=== PATIENT | female | born 1935 | race Caucasian/White ===

== ENCOUNTER 2017-05-16 14:49 | Inpatient (IN) | payer MEDICARE ==
[2017-05-16] MEDS ORDERED: IPRATROPIUM-ALBUTEROL 3 ML NEB INHALATION STA (15:17)
--- NOTE | 2017-05-16 15:22 | ED ---
SOB HPI - General Chief Complaint: Shortness of Breath Stated Complaint: Diff breathing Time Seen by Provider: 05/16/17 15:00 Source: patient, family, RN notes reviewed Mode of arrival: wheelchair Limitations: no limitations - History of Present Illness Initial Comments: This is a 80-year-old female with a history of Sjogren's syndrome urinary tract infection and COPD who presents with complaints of shortness of breath for the past 4 days with a cough exertional dyspnea some sweats. She states also that about 2 weeks ago she got up and was bouncing off the gracia and also 2 days ago she had an episode where her right hand and fingers went numb for a period time which is since resolved. Her cough is nonproductive she denies any dysuria though she states she does not have sensation to indicate urinary tract infection. She denies any dizziness at this time any lightheadedness. MD Complaint: shortness of breath - Related Data Home Medications Medication Instructions Recorded Confirmed ALPRAZolam [Xanax] 0.25 mg PO HS 04/30/14 05/16/17 Aspirin EC [Ecotrin] 81 mg PO HS 04/30/14 05/16/17 Biotin 5 mg PO DAILY 04/30/14 05/16/17 Cyclobenzaprine [Flexeril] 10 mg PO BID PRN 04/30/14 05/16/17 Furosemide [Lasix] 40 mg PO DAILY PRN 04/30/14 05/16/17 Loratadine [Claritin] 10 mg PO BID 04/30/14 05/16/17 Pravastatin Sodium [Pravachol] 20 mg PO HS 04/30/14 05/16/17 cycloSPORINE 0.05% OPHTH SOLN 1 drop BOTH EYES BID 04/30/14 05/16/17 [Restasis 0.05% Ophth Soln] Mag Carb/Aluminum Hydrox/Algin 30 ml PO QID PRN 05/21/14 05/16/17 [Gaviscon Liquid] Melatonin 10 mg PO HS PRN 08/26/15 05/16/17 Acetaminophen [Tylenol Arthritis 1,300 mg PO BID 01/23/16 05/16/17 8-hr] Albuterol Sulfate [Proair Hfa] 2 puff INHALATION RT-QID PRN 01/23/16 05/16/17 Potassium 550 mg PO BID 01/23/16 05/16/17 Sennosides-Docusate Sodium 2 tab PO QAM 01/23/16 05/16/17 [Senokot-S] Carvedilol [Coreg] 1.563 mg PO Q48H 05/16/17 05/16/17 Carvedilol [Coreg] 3.125 mg PO Q48H 05/16/17 05/16/17 Carvedilol [Coreg] 3.125 mg PO QAM 05/16/17 05/16/17 Cephalexin [Keflex] 500 mg PO Q8HR 05/16/17 05/16/17 Ciprofloxacin HCl [Cipro] 125 mg PO BID PRN 05/16/17 05/16/17 Cranberry Fruit Extract [Theracran] 650 mg PO BID 05/16/17 05/16/17 DULoxetine HCL [Cymbalta] 60 mg PO W/SUPPER 05/16/17 05/16/17 Dexamethasone [Decadron Intensol 0.5 mg MUCOUS MEM TID PRN 05/16/17 05/16/17 Oral Solution] Fluticasone Nasal Seiling [Flonase 2 spr EA NOSTRIL DAILY 05/16/17 05/16/17 Nasal Seiling] L.acidoph,Paracasei, B.lactis 1 cap PO QAM 05/16/17 05/16/17 [Probiotic] Lidocaine-Prilocaine Cream [Emla 1 applic TOPICAL DAILY PRN 05/16/17 05/16/17 Cream 2.5%/2.5%] Losartan Potassium 50 mg PO DAILY 05/16/17 05/16/17 Lysine [l-Lysine] 1,000 mg PO QAM 05/16/17 05/16/17 Lysine [l-Lysine] 500 mg PO HS 05/16/17 05/16/17 Magnesium Oxide [Mag-Ox] 250 mg PO BID 05/16/17 05/16/17 Meclizine [Antivert] 12.5 mg PO TID PRN 05/16/17 05/16/17 Multivitamins, Thera [Multivitamin 1 tab PO DAILY 05/16/17 05/16/17 (formulary)] Maple-3 Fatty Acids/Fish Oil [Fish 1 cap PO QAM 05/16/17 05/16/17 Oil 1,000 mg Softgel] Pantoprazole Sodium [Protonix] 40 mg PO BID PRN 05/16/17 05/16/17 fentaNYL 50MCG/HR PATCH [Duragesic 50 mcg TRANSDERM Q48H 05/16/17 05/16/17 50MCG/HR] Allergies Allergy/AdvReac Type Severity Reaction Status Date / Time morphine Allergy Itching Verified 05/16/17 14:56 nickel Allergy REDNESS OF Verified 05/16/17 14:56 SKIN AND BLISTERING oxycodone HCl [From Percodan] Allergy Itching Verified 05/16/17 14:56 oxycodone terephthalate Allergy Itching Verified 05/16/17 14:56 [From Percodan] amoxicillin [Amoxicillin] AdvReac Diarrhea Verified 05/16/17 14:56 calcium carbonate AdvReac Rapid Verified 05/16/17 15:29 [From Salagen] Heart Rate cephalexin monohydrate AdvReac Unknown Verified 05/16/17 14:56 [From Keflex] codeine AdvReac Nausea & Verified 05/16/17 14:56 Vomiting magnesium [From Salagen] AdvReac Rapid Verified 05/16/17 15:29 Heart Rate methotrexate AdvReac NERVE Verified 05/16/17 14:56 DAMAGE TO HANDS AND FEET pilocarpine HCl AdvReac Rapid Verified 05/16/17 15:29 [From Salagen] Heart Rate pseudoephedrine HCl AdvReac Nausea Verified 05/16/17 14:56 [From Sudafed] Sulfa (Sulfonamide AdvReac Nausea & Verified 05/16/17 14:56 Antibiotics) Vomiting valacyclovir HCl AdvReac Unknown Verified 05/16/17 14:56 [From Valtrex] Review of Systems ROS Statement: Those systems with pertinent positive or pertinent negative responses have been documented in the HPI. ROS Other: All systems not noted in ROS Statement are negative. Past Medical History Past Medical History: Deep Vein Thrombosis (DVT), Fibromyalgia, Hypertension, Myocardial Infarction ([place]), Osteoarthritis (OA), Pneumonia, Pulmonary Embolus ( PE), Rheumatoid Arthritis (RA), Skin Disorder Additional Past Medical History / Comment(s): Hx of frequent bladder infections , sjogren's syndrome, bursitis, vasculitis, R leg calf wound, allergies Last Myocardial Infarction Date:: 2002 History of Any Multi-Drug Resistant Organisms: None Reported Past Surgical History: Appendectomy, Back Surgery, Bladder Surgery, Cholecystectomy, Heart Catheterization With Stent Additional Past Surgical History / Comment(s): PMH: RHEUMATOID ARTHRITIS Past Anesthesia/Blood Transfusion Reactions: No Reported Reaction Date of Last Stent Placement:: 2008 Past Psychological History: No Psychological Hx Reported Smoking Status: Former smoker Past Alcohol Use History: Occasional Past Drug Use History: None Reported - Past Family History Father Family Medical History: Cancer Mother Family Medical History: Cancer General Exam - General Exam Comments Initial Comments: This is a well-developed well-nourished awake alert oriented 3 female Limitations: no limitations General appearance: alert, anxious Head exam: Present: atraumatic, normocephalic, normal inspection Eye exam: Present: normal appearance, PERRL, EOMI. Absent: scleral icterus, conjunctival injection, periorbital swelling ENT exam: Present: mucous membranes dry Neck exam: Present: normal inspection. Absent: tenderness, meningismus, lymphadenopathy Respiratory exam: Present: normal lung sounds bilaterally. Absent: respiratory distress, wheezes, rales, rhonchi, stridor Cardiovascular Exam: Present: tachycardia, irregular rhythm. Absent: systolic murmur, diastolic murmur, rubs, gallop, clicks GI/Abdominal exam: Present: soft, normal bowel sounds. Absent: distended, tenderness, guarding, rebound, rigid Extremities exam: Present: normal inspection, full ROM, normal capillary refill , pedal edema (Trace edema with a healing wound on the right lower extremity). Absent: tenderness, joint swelling, calf tenderness Back exam: Present: normal inspection Neurological exam: Present: alert, oriented X3, CN II-XII intact Psychiatric exam: Present: normal affect, normal mood Skin exam: Present: warm, intact, normal color, diaphoretic. Absent: rash Course Vital Signs 05/16/17 05/16/17 05/16/17 14:50 15:32 15:33 Temperature 99.0 F 97.4 F L Pulse Rate 129 H 133 H Pulse Rate [ 133 H Tower Erector ] Respiratory 20 18 Rate Blood Pressure 140/84 151/84 O2 Sat by Pulse 97 98 Oximetry 05/16/17 05/16/17 05/16/17 15:42 15:52 16:35 Temperature Pulse Rate 133 H 129 H 130 H Pulse Rate [ Tower Erector ] Respiratory 18 Rate Blood Pressure 147/90 O2 Sat by Pulse 99 Oximetry Medical Decision Making - Medical Decision Making I did reevaluate patient several occasions and did have several discussions with family member as well as the patient. Patient will be admitted with new onset atrial fibrillation with rapid ventricular response. - Lab Data Result diagrams: 05/16/17 15:25 05/16/17 15:25 Lab Results 05/16/17 05/16/17 05/16/17 Range/Units 15:25 15:25 15:25 WBC 9.0 (3.8-10.6) k/uL RBC 4.18 (3.80-5.40) m/uL Hgb 12.1 (11.4-16.0) gm/dL Hct 39.4 (34.0-46.0) % MCV 94.2 (80.0-100.0) fL MCH 28.9 (25.0-35.0) pg MCHC 30.7 L (31.0-37.0) g/dL RDW 14.3 (11.5-15.5) % Plt Count 355 (150-450) k/uL Neutrophils % 73 % Lymphocytes % 14 % Monocytes % 6 % Eosinophils % 3 % Basophils % 1 % Neutrophils # 6.6 (1.3-7.7) k/uL Lymphocytes # 1.3 (1.0-4.8) k/uL Monocytes # 0.5 (0-1.0) k/uL Eosinophils # 0.3 (0-0.7) k/uL Basophils # 0.1 (0-0.2) k/uL Hypochromasia Moderate PT (9.0-12.0) sec INR (<1.2) APTT (22.0-30.0) sec D-Dimer (<0.60) mg/L FEU Sodium 141 (137-145) mmol/L Potassium 4.8 (3.5-5.1) mmol/L Chloride 110 H (98-107) mmol/L Carbon Dioxide 24 (22-30) mmol/L Anion Gap 7 mmol/L BUN 12 (7-17) mg/dL Creatinine 0.64 (0.52-1.04) mg/dL Est GFR (MDRD) Af Amer >60 (>60 ml/min/1.73 sqM) Est GFR (MDRD) Non-Af >60 (>60 ml/min/1.73 sqM) Glucose 119 H (74-99) mg/dL Calcium 9.2 (8.4-10.2) mg/dL Magnesium 1.7 (1.6-2.3) mg/dL Total Bilirubin 0.4 (0.2-1.3) mg/dL AST 19 (14-36) U/L ALT 25 (9-52) U/L Alkaline Phosphatase 59 (38-126) U/L Total Creatine Kinase 25 L (30-135) U/L CK-MB (CK-2) 1.0 (0.0-2.4) ng/mL CK-MB (CK-2) Rel Index 4.0 Troponin I 0.019 (0.000-0.034) ng/mL NT-Pro-B Natriuret Pep pg/mL Total Protein 6.0 L (6.3-8.2) g/dL Albumin 3.3 L (3.5-5.0) g/dL 05/16/17 05/16/17 Range/Units 15:25 15:25 WBC (3.8-10.6) k/uL RBC (3.80-5.40) m/uL Hgb (11.4-16.0) gm/dL Hct (34.0-46.0) % MCV (80.0-100.0) fL MCH (25.0-35.0) pg MCHC (31.0-37.0) g/dL RDW (11.5-15.5) % Plt Count (150-450) k/uL Neutrophils % % Lymphocytes % % Monocytes % % Eosinophils % % Basophils % % Neutrophils # (1.3-7.7) k/uL Lymphocytes # (1.0-4.8) k/uL Monocytes # (0-1.0) k/uL Eosinophils # (0-0.7) k/uL Basophils # (0-0.2) k/uL Hypochromasia PT 11.2 (9.0-12.0) sec INR 1.1 (<1.2) APTT 24.8 (22.0-30.0) sec D-Dimer 2.31 H (<0.60) mg/L FEU Sodium (137-145) mmol/L Potassium (3.5-5.1) mmol/L Chloride (98-107) mmol/L Carbon Dioxide (22-30) mmol/L Anion Gap mmol/L BUN (7-17) mg/dL Creatinine (0.52-1.04) mg/dL Est GFR (MDRD) Af Amer (>60 ml/min/1.73 sqM) Est GFR (MDRD) Non-Af (>60 ml/min/1.73 sqM) Glucose (74-99) mg/dL Calcium (8.4-10.2) mg/dL Magnesium (1.6-2.3) mg/dL Total Bilirubin (0.2-1.3) mg/dL AST (14-36) U/L ALT (9-52) U/L Alkaline Phosphatase (38-126) U/L Total Creatine Kinase (30-135) U/L CK-MB (CK-2) (0.0-2.4) ng/mL CK-MB (CK-2) Rel Index Troponin I (0.000-0.034) ng/mL NT-Pro-B Natriuret Pep 6870 pg/mL Total Protein (6.3-8.2) g/dL Albumin (3.5-5.0) g/dL - EKG Data -: EKG Interpreted by Me (Atrial fibrillation rate of 140 QRS 90 QT since QTC of 300/458 that exodevi) - Radiology Data Radiology results: report reviewed (I did review the imaging and reports are is no evidence of PE.), image reviewed Critical Care Time Critical Care Time: Yes Critical Care Time: 37 minutes of critical care time which includes initial presentation with history physical labs x-rays reevaluation the patient multiple occasions discussion with family members. Discussion with the admitting physician. Admission orders and documentation of the above. Disposition Clinical Impression: Rapid atrial fibrillation Disposition: ADMITTED IP TO THIS [facility] Condition: Stable Referrals: Cirilo Brown DO [Primary Care Provider] - 1-2 days
[2017-05-16 15:40] LABS: Basophils # (A) 0.1 k/uL (0-0.2); Basophils % (A) 1 %; CH 28.7; CHCM 30.7; Eosinophils # (A) 0.3 k/uL (0-0.7); Eosinophils % (A) 3 %; HCT 39.4 % (34.0-46.0); HDW 2.91; HGB 12.1 gm/dL (11.4-16.0); Hypochromasia Moderate; Luc # (Auto) 0.27; Luc % (Auto) 3; Lymphocytes # (A) 1.3 k/uL (1.0-4.8); Lymphocytes % (A) 14 %; MCH 28.9 pg (25.0-35.0); MCHC 30.7 g/dL (31.0-37.0); MCV 94.2 fL (80.0-100.0); Mean Platelet Volume 8.2; Monocytes # (A) 0.5 k/uL (0-1.0); Monocytes % (A) 6 %; Neutrophils # (A) 6.6 k/uL (1.3-7.7); Neutrophils % (A) 73 %; RBC 4.18 m/uL (3.80-5.40); RDW 14.3 % (11.5-15.5); WBC (Perox) 9.61
[2017-05-16] MEDS ORDERED: DILTIAZEM 125 MG in SODIUM CHLORIDE 0.9% 100 ML IV ONE (15:41)
[2017-05-16] MEDS ORDERED: DILTIAZEM 5 MG/ML 25 ML VIAL IV STA ×2 (15:41→16:35)
[2017-05-16 15:50] LABS: ALT 25 U/L (9-52); AST 19 U/L (14-36); Alkaline Phosphatase 59 U/L (38-126); Anion Gap 7 mmol/L; Blood Urea Nitrogen 12 mg/dL (7-17); Calcium 9.2 mg/dL (8.4-10.2); Carbon Dioxide 24 mmol/L (22-30); Chloride 110 mmol/L (98-107); Glucose 119 mg/dL (74-99); Magnesium 1.7 mg/dL (1.6-2.3); Non-African American GFR(MDRD) >60 (>60 ml/min/1.73 sqM); Potassium 4.8 mmol/L (3.5-5.1); Sodium 141 mmol/L (137-145); Total Bilirubin 0.4 mg/dL (0.2-1.3)
[2017-05-16 15:53] LABS: INR 1.1 (<1.2); Partial Thromboplastin Time 24.8 sec (22.0-30.0); Prothrombin Time 11.2 sec (9.0-12.0)
[2017-05-16] MEDS ORDERED: RX INFO: IV CONTRAST WAS GIVEN 1 EACH MISC MISCELLANE PRN (16:16)
--- NOTE | 2017-05-16 16:30 | XR ---
EXAMINATION TYPE: XR chest 2V DATE OF EXAM: 05/16/2017 COMPARISON: 04/11/2016 HISTORY: Shortness of breath TECHNIQUE: Frontal and lateral views of the chest are obtained. FINDINGS: Scattered senescent parenchymal changes noted. Hyperinflation compatible with COPD. No evidence for infiltrate. No evidence for atelectasis. Heart size is stable. Mediastinal structures are stable and grossly unremarkable. No evidence for hilar prominence. Degenerative changes dorsal spine. IMPRESSION: 1. No evidence for acute pulmonary disease.
[2017-05-16] MEDS ORDERED: DILTIAZEM 5 MG/ML 5 ML VIAL IVP STA (16:38)
[2017-05-16] MEDS ORDERED: DILTIAZEM 5 MG/ML 5 ML VIAL IV STA (16:41)
--- NOTE | 2017-05-16 16:41 | CT ---
EXAMINATION TYPE: CT brain wo con DATE OF EXAM: 05/16/2017 COMPARISON: NONE HISTORY: Pain CT DLP: 992.[address] of the brain was performed. The ventricles, basal cisterns and sulci overlying the cerebral convexities demonstrate mild enlargem ent. There is no evidence for intracranial hemorrhage or sulcal effacement. There is decreased attenuation about the periventricular white matter and deep white matter of both c erebral hemispheres, compatible with chronic small vessel ischemia. Differential diagnosis does inclu de demyelination. No mass effects are seen.No midline shift. Osseous calvarium is intact. If symptoms persist consider MRI. IMPRESSION: 1. Age related atrophic and chronic small vessel ischemic change without acute intracranial process s een at this time.
--- NOTE | 2017-05-16 16:43 | CT ---
EXAMINATION TYPE: CT angio chest DATE OF EXAM: 05/16/2017 COMPARISON: NONE HISTORY: Difficulty breathing CT DLP: 147.6 mGycm CONTRAST: CT chest with contrast and 3D reconstruction with MIP imaging is performed with IV Contrast, patient injected with 100 mL of Omnipaque 350. Contrast-enhanced CT of the chest was performed through the course of the pulmonary arteries with greg g and mediastinal window settings submitted. 3D reconstruction with MIP imaging was also performed. PULMONARY ARTERIES: The pulmonary arteries and their major tributaries are patent. I do not see alexsander dence for sizable filling defect to suggest pulmonary embolic process. LUNGS: The lungs are clear and free of infiltrate. No evidence for atelectasis. No pulmonary nodule or mass is detected. Scattered areas of pleural thickening. Mild bronchiectasis. MEDIASTINUM: Thoracic aorta is of normal caliber . The heart is not enlarged. No evidence for media stinal mass. No mediastinal lymph nodes greater than 1cm. HILAR STRUCTURES: No evidence for mass. No hilar lymph nodes greater than 1 cm. UPPER ABDOMEN: No significant abnormality is seen. IMPRESSION: 1. No evidence for Pulmonary embolism at this time.
[2017-05-16 16:45] LABS: Troponin I 0.019 ng/mL (0.000-0.034)
[2017-05-16] MEDS ORDERED: NALOXONE 0.4 MG/ML 1 ML VIAL IV PRN (16:52)
[2017-05-16] MEDS ORDERED: HEPARIN SODIUM,PORCINE 5,000 UNIT/ML 1 ML VIAL IV ONE (16:58)
[2017-05-16] MEDS ORDERED: CYCLOBENZAPRINE 10 MG TAB PO PRN (16:59)
[2017-05-16] MEDS ORDERED: LIDOCAINE-PRILOCAINE 2.5-2.5% CREAM 5 GM TUBE TOPICAL PRN (16:59)
[2017-05-16] MEDS ORDERED: MECLIZINE 12.5 MG TAB PO PRN (16:59)
[2017-05-16] MEDS ORDERED: PANTOPRAZOLE 40 MG TABLET PO PRN (16:59)
[2017-05-16] MEDS: HEPARIN SODIUM,PORCINE/D5W PMX 25,000 UNIT in DEXTROSE/WATER 1 500ML.BAG IV SCH (17:37)
[2017-05-16] MEDS: SODIUM CHLORIDE 0.9% 1,000 ML IV SCH (17:39)
[2017-05-16] MEDS: CARVEDILOL 3.125 MG TAB PO SCH (18:29)
[2017-05-16] MEDS: DULoxetine HCL 60 MG CAPSULE.DR PO SCH (18:29)
[2017-05-16] MEDS: NITROGLYCERIN OINT 1 INCH/GM PACKET TOPICAL SCH ×2 (18:50→23:14)
[2017-05-16 18:55] LABS: Appearance,Urine Clear (Clear); Bacteria,Urine Occasional /hpf; Bilirubin,Urine Negative (Negative); Glucose,Urine (UA) Negative (Negative); Ketones,Urine Negative (Negative); Leukocyte Esterase,Urine Small (Negative); Mucus,Urine Rare /hpf; Nitrite,Urine Negative (Negative); PH, Urine 5.5 (5.0-8.0); Particle Count 1665; Protein,Urine Trace (Negative); RBC,Urine 5 /hpf (0-5); Squamous Epithelial Cell,Urine 2 /hpf (0-4); UA Billing (MACRO vs. MICRO) MICRO; Urobilinogen,Urine <2.0 mg/dL (<2.0); WBC,Urine 4 /hpf (0-5)
[2017-05-16 19:01] LABS: Specific Gravity,Urine >1.050 (1.001-1.035)
[2017-05-16] MEDS: ASPIRIN 81 MG CHEW PO SCH (20:40)
[2017-05-16] MEDS: FUROSEMIDE 10 MG/ML 4 ML VIAL IV SCH (20:41)
[2017-05-16] MEDS: cycloSPORINE 0.05% OPHTH 0.4 ML DROPERETTE BOTH EYES SCH (20:41)
[2017-05-16] MEDS: MAGNESIUM OXIDE 400 MG TAB PO SCH (20:41)
[2017-05-16] MEDS: PRAVASTATIN SODIUM 20 MG TAB PO SCH (20:41)
[2017-05-16] MEDS: ALPRAZolam 0.25 MG TAB PO SCH (23:41)
[2017-05-17] MEDS: HEPARIN SODIUM,PORCINE 5,000 UNIT/ML 1 ML VIAL IV PRN (01:21)
[2017-05-17] MEDS: NITROGLYCERIN OINT 1 INCH/GM PACKET TOPICAL SCH ×3 (06:05→16:05)
[2017-05-17] MEDS: CARVEDILOL 3.125 MG TAB PO SCH ×2 (08:43→16:05)
[2017-05-17] MEDS: FLUTICASONE 50MCG/SPRAY NASAL 16GM EA NOSTRIL SCH (08:44)
[2017-05-17] MEDS: LOSARTAN 50 MG TAB PO SCH (08:44)
[2017-05-17] MEDS: cycloSPORINE 0.05% OPHTH 0.4 ML DROPERETTE BOTH EYES SCH ×2 (08:44→22:01)
[2017-05-17] MEDS: FUROSEMIDE 10 MG/ML 4 ML VIAL IV SCH ×2 (08:44→22:00)
[2017-05-17] MEDS: MAGNESIUM OXIDE 400 MG TAB PO SCH ×2 (08:45→22:01)
--- NOTE | 2017-05-17 09:46 | P.CRDCN ---
History of Present Illness Consult date: 05/17/17 Requesting physician: Cirilo Brown Consult reason: atrial fibrillation Chief complaint: Fatigue and mild shortness of breath History of present illness: This is a 81-year-old female who follows with Dr. Ross in the office. She has history of hypertension, prior DVT and PE, rheumatoid arthritis , Sjogren's syndrome, frequent bladder infections, she presents to the hospital with symptoms of progressive fatigue with associated shortness of breath. Patient states that she had recently been treated for a urinary tract infection which she gets frequently. She's felt extremely tired, she did check her blood pressure and heart rate at home, she noted her heart rate to be in the upper 120s and for this reason came to the emergency room for further evaluation. She does state that she noted her heart racing fast. Patient denies any history of atrial fibrillation in the past. EKG on arrival here showed atrial fibrillation with a rapid ventricular response. Chest x-ray did not reveal any evidence for acute pulmonary disease. CAT scan of the brain revealed age- related atrophic and chronic small vessel ischemic change. CTA negative for PE. Blood pressure 140/80 on admission, 97% on room air, heart rate in the 130s to 140s, temperature 99.0. Blood pressure this morning 114/60, heart rate in the 120s, on Cardizem drip at 5 mg per hour. White blood cell count 9.0, hemoglobin 12.1, d-dimer 2.3, potassium 4.8, BUN 12, creatinine 0.6. BNP 6870, troponin 0.019. Past Medical History Past Medical History: Fibromyalgia, Hypertension, Myocardial Infarction (SC), Osteoarthritis (OA), Pneumonia, Pulmonary Embolus (PE), Rheumatoid Arthritis (RA ), Skin Disorder Additional Past Medical History / Comment(s): Hx of frequent bladder infections , sjogren's syndrome, bursitis, vasculitis, R leg calf wound, allergies, silent mi."superficial blood clot rt leg". Last Myocardial Infarction Date:: 2002? History of Any Multi-Drug Resistant Organisms: None Reported Past Surgical History: Adenoidectomy, Appendectomy, Back Surgery, Bladder Surgery, Cholecystectomy, Heart Catheterization With Stent, Tonsillectomy Additional Past Surgical History / Comment(s): eligio hand sx trigger finger sx Past Anesthesia/Blood Transfusion Reactions: No Reported Reaction Additional Past Anesthesia/Blood Transfusion Reaction / Comment(s): clausterphobia Date of Last Stent Placement:: 2008 Past Psychological History: No Psychological Hx Reported Additional Psychological History / Comment(s): pt lives with daughter satinder in a single story home that has 2 porch steps.1 pet cat. 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 Smoking Status: Former smoker Past Alcohol Use History: Occasional Past Drug Use History: None Reported - Past Family History Father Family Medical History: Cancer Mother Family Medical History: Cancer Medications and Allergies Home Medications Medication Instructions Recorded Confirmed Type ALPRAZolam [Xanax] 0.25 mg PO HS 04/30/14 05/16/17 History Aspirin EC [Ecotrin] 81 mg PO HS 04/30/14 05/16/17 History Biotin 5 mg PO DAILY 04/30/14 05/16/17 History Cyclobenzaprine [Flexeril] 10 mg PO BID PRN 04/30/14 05/16/17 History Furosemide [Lasix] 40 mg PO DAILY PRN 04/30/14 05/16/17 History Loratadine [Claritin] 10 mg PO BID 04/30/14 05/16/17 History Pravastatin Sodium [Pravachol] 20 mg PO HS 04/30/14 05/16/17 History cycloSPORINE 0.05% OPHTH SOLN 1 drop BOTH EYES BID 04/30/14 05/16/17 History [Restasis 0.05% Ophth Soln] Mag Carb/Aluminum Hydrox/Algin 30 ml PO QID PRN 05/21/14 05/16/17 History [Gaviscon Liquid] Melatonin 10 mg PO HS PRN 08/26/15 05/16/17 History Acetaminophen [Tylenol Arthritis 1,300 mg PO BID 01/23/16 05/16/17 History 8-hr] Albuterol Sulfate [Proair Hfa] 2 puff INHALATION RT-QID PRN 01/23/16 05/16/17 History Potassium 550 mg PO BID 01/23/16 05/16/17 History Sennosides-Docusate Sodium 3 tab PO QAM 01/23/16 05/16/17 History [Senokot-S] Carvedilol [Coreg] 1.563 mg PO Q48H 05/16/17 05/16/17 History Carvedilol [Coreg] 3.125 mg PO HS 05/16/17 05/16/17 History Carvedilol [Coreg] 3.125 mg PO Q48H 05/16/17 05/16/17 History Cephalexin [Keflex] 500 mg PO Q8HR 05/16/17 05/16/17 History Ciprofloxacin HCl [Cipro] 125 mg PO BID PRN 05/16/17 05/16/17 History Cranberry Fruit Extract [Theracran] 650 mg PO BID 05/16/17 05/16/17 History DULoxetine HCL [Cymbalta] 60 mg PO W/SUPPER 05/16/17 05/16/17 History Dexamethasone [Decadron Intensol 0.5 mg MUCOUS MEM TID PRN 05/16/17 05/16/17 History Oral Solution] Fluticasone Nasal [place] [Flonase 2 spr EA NOSTRIL DAILY 05/16/17 05/16/17 History Nasal [place]] L.acidoph,Paracasei, B.lactis 1 cap PO QAM 05/16/17 05/16/17 History [Probiotic] Lidocaine-Prilocaine Cream [Emla 1 applic TOPICAL DAILY PRN 05/16/17 05/16/17 History Cream 2.5%/2.5%] Losartan Potassium 50 mg PO DAILY 05/16/17 05/16/17 History Lysine [l-Lysine] 1,000 mg PO QAM 05/16/17 05/16/17 History Lysine [l-Lysine] 500 mg PO HS 05/16/17 05/16/17 History Magnesium Oxide [Mag-Ox] 250 mg PO BID 05/16/17 05/16/17 History Meclizine [Antivert] 12.5 mg PO TID PRN 05/16/17 05/16/17 History Multivitamins, Thera [Multivitamin 1 tab PO DAILY 05/16/17 05/16/17 History (formulary)] [place]-3 Fatty Acids/Fish Oil [Fish 1 cap PO QAM 05/16/17 05/16/17 History Oil 1,000 mg Softgel] Pantoprazole Sodium [Protonix] 40 mg PO BID PRN 05/16/17 05/16/17 History fentaNYL 50MCG/HR PATCH [Duragesic 50 mcg TRANSDERM Q48H 05/16/17 05/16/17 History 50MCG/HR] Allergies Allergy/AdvReac Type Severity Reaction Status Date / Time morphine Allergy Itching Verified 05/16/17 14:56 nickel Allergy REDNESS OF Verified 05/16/17 14:56 SKIN AND BLISTERING oxycodone HCl [From Percodan] Allergy Itching Verified 05/16/17 14:56 oxycodone terephthalate Allergy Itching Verified 05/16/17 14:56 [From Percodan] amoxicillin [Amoxicillin] AdvReac Diarrhea Verified 05/16/17 14:56 calcium carbonate AdvReac Rapid Verified 05/16/17 15:29 [From [place]] Heart Rate cephalexin monohydrate AdvReac Unknown Verified 05/16/17 14:56 [From Keflex] codeine AdvReac Nausea & Verified 05/16/17 14:56 Vomiting magnesium [From [place]] AdvReac Rapid Verified 05/16/17 15:29 Heart Rate methotrexate AdvReac NERVE Verified 05/16/17 14:56 DAMAGE TO HANDS AND FEET pilocarpine HCl AdvReac Rapid Verified 05/16/17 15:29 [From [place]] Heart Rate pseudoephedrine HCl AdvReac Nausea Verified 05/16/17 14:56 [From Sudafed] Sulfa (Sulfonamide AdvReac Nausea & Verified 05/16/17 14:56 Antibiotics) Vomiting valacyclovir HCl AdvReac Unknown Verified 05/16/17 14:56 [From Valtrex] Physical Exam Vitals: Vital Signs Temp Pulse Pulse Resp BP BP Pulse Ox 05/17/17 08:30 96.9 F L 128 H 16 113/59 95 05/17/17 04:00 97.5 F L 120 H 18 134/80 93 L 05/17/17 00:00 98.2 F 129 H 18 139/80 97 05/16/17 20:00 98.0 F 108 H 18 119/83 94 L 05/16/17 18:00 97.5 F L 118 H 18 138/84 91 L 05/16/17 17:39 98.4 F 117 H 18 157/70 96 05/16/17 16:48 137 H 18 133/90 98 05/16/17 16:35 130 H 18 147/90 99 05/16/17 15:52 129 H 05/16/17 15:42 133 H 05/16/17 15:33 97.4 F L 133 H 18 151/84 98 05/16/17 15:32 133 H 05/16/17 14:50 99.0 F 129 H 20 140/84 97 Intake and Output 05/16/17 05/17/17 05/17/17 22:59 06:59 14:59 Intake Total 357 115.824 360 Output Total 600 1000 Balance -243 -884.176 360 Intake: IV 60 Diltiazem 125 mg In 15 Sodium Chloride 0.9% 100 ml @ 5 MG/HR 5 mls/hr IV .Q24H [facility] Rx#:[id number] Heparin Sodium,Porcine/ 45 D5w Pmx 25,000 unit In Dextrose/Water 1 500ml. bag @ 12 UNITS/KG/HR 15. 24 mls/hr IV .Q24H [facility] Rx #:[id number] Intake, IV Titration 60 115.824 Amount Heparin Sodium,Porcine/ 115.824 D5w Pmx 25,000 unit In Dextrose/Water 1 500ml. bag @ 12 UNITS/KG/HR 15. 24 mls/hr IV .Q24H [facility] Rx #:[id number] Sodium Chloride 0.9% 1, 60 000 ml @ 20 mls/hr IV . Q24H [facility] Rx#:[id number] Oral 237 360 Output: Urine 600 1000 Other: Voiding Method Bedside Commode Bedside Commode Bedside Commode Weight 62.9 kg PHYSICAL EXAMINATION: HEENT: Head is atraumatic, normocephalic. Pupils equal, round. Neck is supple. There is no elevated jugular venous pressure. HEART EXAMINATION: Heart S1 and S2 irregularly irregular a systolic murmur is heard CHEST EXAMINATION: Lungs are clear to auscultation and precussion. No chest wall tenderness is noted on palpation or with deep breathing. ABDOMEN: Soft, nontender. Bowel sounds are heard. No organomegaly noted. EXTREMITIES: 2+ peripheral pulses with no evidence of peripheral edema and no calf tenderness noted. Igor wrap in place to right lower extremity NEUROLOGIC patient is awake, alert and oriented -3. . Results 05/16/17 15:25 05/16/17 15:25 Cardiac Enzymes 05/16/17 05/16/17 Range/Units 15:25 15:25 AST 19 (14-36) U/L CK-MB (CK-2) 1.0 (0.0-2.4) ng/mL Troponin I 0.019 (0.000-0.034) ng/mL Coagulation 05/16/17 05/16/17 05/17/17 Range/Units 15:25 23:20 06:22 PT 11.2 (9.0-12.0) sec APTT 24.8 38.6 H 65.8 H (22.0-30.0) sec CBC 05/16/17 Range/Units 15:25 WBC 9.0 (3.8-10.6) k/uL RBC 4.18 (3.80-5.40) m/uL Hgb 12.1 (11.4-16.0) gm/dL Hct 39.4 (34.0-46.0) % Plt Count 355 (150-450) k/uL Comprehensive Metabolic Panel 05/16/17 Range/Units 15:25 Sodium 141 (137-145) mmol/L Potassium 4.8 (3.5-5.1) mmol/L Chloride 110 H (98-107) mmol/L Carbon Dioxide 24 (22-30) mmol/L BUN 12 (7-17) mg/dL Creatinine 0.64 (0.52-1.04) mg/dL Glucose 119 H (74-99) mg/dL Calcium 9.2 (8.4-10.2) mg/dL AST 19 (14-36) U/L ALT 25 (9-52) U/L Alkaline Phosphatase 59 (38-126) U/L Total Protein 6.0 L (6.3-8.2) g/dL Albumin 3.3 L (3.5-5.0) g/dL Current Medications Generic Name Dose Route Start Last Admin Trade Name Freq PRN Reason Stop Dose Admin Alprazolam 0.25 mg 05/16/17 23:15 05/16/17 23:41 Xanax PO 0.25 mg HS [facility] Administration Aspirin 81 mg 05/16/17 21:00 05/16/17 20:40 Aspirin PO 81 mg HS [facility] Administration Carvedilol 3.125 mg 05/17/17 09:00 05/17/17 08:43 Coreg PO 3.125 mg Q48H [facility] Administration Carvedilol 3.125 mg 07/25/17 17:30 05/16/17 18:29 Coreg PO 3.125 mg W/SUPPER [facility] Administration Carvedilol 1.563 mg 05/18/17 09:00 Coreg PO Q48H [facility] Cyclobenzaprine HCl 10 mg 05/16/17 16:59 Flexeril PO BID PRN Spasms/Pain Cyclosporine 1 drops 05/16/17 21:00 05/17/17 08:44 Restasis 0.05% Ophth Soln BOTH EYES 1 drops BID [facility] Administration Duloxetine HCl 60 mg 05/16/17 17:30 05/16/17 18:29 Cymbalta PO 60 mg W/SUPPER [facility] Administration Fentanyl 1 patch 05/18/17 09:00 Duragesic 50mcg/Hr Patch TRANSDERM Q48H [facility] Fluticasone Propionate 2 spray 05/17/17 09:00 05/17/17 08:44 Flonase Nasal [place] EA NOSTRIL 2 spray DAILY [facility] Administration Furosemide 40 mg 05/16/17 21:00 05/17/17 08:44 Lasix IV 40 mg Q12HR [facility] Administration Heparin Sodium (Porcine) 0 unit 05/16/17 17:17 05/17/17 01:21 Heparin IV 4,000 unit PER PROTOCOL PRN Administration PER PROTOCOL Protocol Diltiazem HCl 125 mg/ Sodium 125 mls @ 5 mls/hr 05/16/17 15:41 05/16/17 16:32 Chloride IV 05/17/17 15:40 5 mg/hr .Q24H ONE 5 mls/hr 5 MG/HR Administration Heparin Sodium/Dextrose 25,000 500 mls @ 15.24 mls/hr 05/16/17 17:00 01:13 unit/ IV Solution IV 15 units/kg/hr .Q24H [facility] 19.05 mls/hr Protocol Titration 12 UNITS/KG/HR Sodium Chloride 1,000 mls @ 20 mls/hr 05/16/17 17:00 05/16/17 17:39 Saline 0.9% IV 20 mls/hr .Q24H [facility] Administration Lidocaine/Prilocaine 1 applic 05/16/17 16:59 Emla Cream 2.5%/2.5% TOPICAL DAILY PRN Feet Losartan Potassium 50 mg 05/17/17 09:00 05/17/17 08:44 Cozaar PO 50 mg DAILY [facility] Administration Magnesium Oxide 400 mg 05/16/17 21:00 05/17/17 08:45 Mag-Ox PO 400 mg BID [facility] Administration Meclizine HCl 12.5 mg 05/16/17 16:59 Antivert PO TID PRN Vertigo Miscellaneous Information 1 each 05/16/17 16:16 05/16/17 16:34 Rx Info: Iv Contrast Was Given MISCELLANE 05/18/17 16:16 1 each DAILY PRN Administration Per Protocol Naloxone HCl 0.2 mg 05/16/17 16:52 Narcan IV Q2M PRN Opioid Reversal Nitroglycerin 0.5 inch 05/16/17 18:00 05/17/17 06:05 Nitro-Bid Oint TOPICAL Not Given Q6HR [facility] Pantoprazole Sodium 40 mg 05/16/17 16:59 05/16/17 20:41 Protonix PO 40 mg AC-BID PRN Administration Indigestion/Heartburn Pravastatin Sodium 20 mg 05/16/17 21:00 05/16/17 20:41 Pravachol PO 20 mg HS [facility]NA Administration Intake and Output 05/16/17 05/17/17 05/17/17 22:59 06:59 14:59 Intake Total 357 115.824 360 Output Total 600 1000 Balance -243 -884.176 360 Intake: IV 60 Diltiazem 125 mg In 15 Sodium Chloride 0.9% 100 ml @ 5 MG/HR 5 mls/hr IV .Q24H [facility] Rx#:[id number] Heparin Sodium,Porcine/ 45 D5w Pmx 25,000 unit In Dextrose/Water 1 500ml. bag @ 12 UNITS/KG/HR 15. 24 mls/hr IV .Q24H [facility] Rx #:[id number] Intake, IV Titration 60 115.824 Amount Heparin Sodium,Porcine/ 115.824 D5w Pmx 25,000 unit In Dextrose/Water 1 500ml. bag @ 12 UNITS/KG/HR 15. 24 mls/hr IV .Q24H [facility] Rx #:[id number] Sodium Chloride 0.9% 1, 60 000 ml @ 20 mls/hr IV . Q24H [facility] Rx#:[id number] Oral 237 360 Output: Urine 600 1000 Other: Voiding Method Bedside Commode Bedside Commode Bedside Commode Weight 62.9 kg 05/16/17 15:25 05/16/17 15:25 EKG Interpretations (text) EKG shows atrial fibrillation with a rapid ventricular response Assessment and Plan Plan: Assessment and plan #1 symptoms of progressive fatigue with associated palpitations and shortness of breath. EKG on admission showed atrial fibrillation with rapid ventricular response, appears to be of new onset. #2 positive UTI with low-grade fever #3 hypertension #4 history of DVT and PE # 5 Sjogren's #6 rheumatoid arthritis #7 history of recurrent bladder infections #8 coronary artery disease with prior stent placement to the RCA #9 hyperlipidemia #10 elevated BNP level with no clear-cut evidence of congestive cardiac failure Plan We will obtain an echocardiogram with Doppler study. Check free T4 and TSH level. We'll initiate oral Cardizem. Discontinue Cardizem drip. We will also check to see on one of the newer anticoagulants. Further recommendations to follow. DNP note has been reviewed, I agree with a documented findings and plan of care. Patient was seen and examined.
[2017-05-17] MEDS: DILTIAZEM ORAL 30 MG TAB PO SCH ×3 (10:46→22:01)
--- NOTE | 2017-05-17 12:30 | ECHOF ---
Referral Reason:afib MEASUREMENTS -------- HEIGHT: 154.9 cm WEIGHT: 62.6 kg BP: 113/59 RVIDd: 2.8 cm (< 3.3) IVSd: 1.1 cm (0.6 - 1.1) LVIDd: 3.3 cm (3.9 - 5.3) LVPWd: 1.0 cm (0.6 - 1.1) IVSs: 1.5 cm LVIDs: 2.2 cm LVPWs: 1.8 cm LA Diam: 3.8 cm (2.7 - 3.8) LAESV Index (A-L): 30.51 ml/m Ao Diam: 3.1 cm (2.0 - 3.7) AV Cusp: 1.7 cm (1.5 - 2.6) MV EXCURSION: 14.881 mm (> 18.000) MV EF SLOPE: 191 mm/s (70 - 150) EPSS: 0.9 cm RAP: 5.00 mmHg RVSP: 40.70 mmHg FINDINGS -------- Atrial fibrillation. This was a technically good study. The left ventricular size is normal. Left ventricular wall thickness is normal. Overall left ventricular systolic function is moderately impaired with, an EF between 35 - 40 %. The right ventricle is normal in size. LA is midly dilated 29-33ml/m2. The right atrium is normal in size. Aortic valve is trileaflet and is mildly thickened. Mild mitral annular calcification present. Mvoo-[id number] mitral regurgitation is present. Mild tricuspid regurgitation present. There is mild pulmonary hypertension. The right ventricular systolic pressure, as measured by Doppler, is 40.70mmHg. There is no pulmonic regurgitation present. The aortic root size is normal. Normal inferior vena cava with normal inspiratory collapse consistent with estimated right atrial pressure of 5 mmHg. There is a small pericardial effusion located near the left ventricle. CONCLUSIONS -------- 1. Atrial fibrillation. 2. Mild mitral annular calcification present. 3. Eanz-[id number] mitral regurgitation is present. 4. Mild tricuspid regurgitation present. 5. There is mild pulmonary hypertension. 6. The right ventricular systolic pressure, as measured by Doppler, is 40.70mmHg. 7. There is no pulmonic regurgitation present. 8. The aortic root size is normal. 9. Normal inferior vena cava with normal inspiratory collapse consistent with estimated right atrial pressure of 5 mmHg. 10. There is a small pericardial effusion located near the left ventricle. 11. This was a technically good study. 12. The left ventricular size is normal. 13. Left ventricular wall thickness is normal. 14. Overall left ventricular systolic function is moderately impaired with, an EF between 35 - 40 %. 15. The right ventricle is normal in size. 16. LA is midly dilated 29-33ml/m2. 17. The right atrium is normal in size. 18. Aortic valve is trileaflet and is mildly thickened. [employer]: Nini Huizar RDCS
[2017-05-17] MEDS: ALPRAZolam 0.25 MG TAB PO PRN (16:04)
[2017-05-17] MEDS: OXYMETAZOLINE 0.05% NASL SPRAY 15 ML NASAL SCH (16:04)
[2017-05-17] MEDS: DULoxetine HCL 60 MG CAPSULE.DR PO SCH (16:05)
[2017-05-17] MEDS: SODIUM CHLORIDE 0.9% 1,000 ML IV SCH (16:06)
[2017-05-17] MEDS: HEPARIN SODIUM,PORCINE/D5W PMX 25,000 UNIT in DEXTROSE/WATER 1 500ML.BAG IV SCH (18:30)
[2017-05-17] MEDS: ALPRAZolam 0.25 MG TAB PO SCH (22:01)
[2017-05-17] MEDS: ASPIRIN 81 MG CHEW PO SCH (22:01)
[2017-05-17] MEDS: PRAVASTATIN SODIUM 20 MG TAB PO SCH (22:01)
[2017-05-18] MEDS: NITROGLYCERIN OINT 1 INCH/GM PACKET TOPICAL SCH ×5 (03:37→23:24)
[2017-05-18] MEDS: DILTIAZEM ORAL 30 MG TAB PO SCH ×3 (06:15→21:11)
[2017-05-18] MEDS: HEPARIN SODIUM,PORCINE 5,000 UNIT/ML 1 ML VIAL IV PRN (06:36)
[2017-05-18] MEDS: FLUTICASONE 50MCG/SPRAY NASAL 16GM EA NOSTRIL SCH (09:00)
[2017-05-18] MEDS ORDERED: CARVEDILOL 1.563 MG TAB PO SCH (09:00)
[2017-05-18] MEDS: cycloSPORINE 0.05% OPHTH 0.4 ML DROPERETTE BOTH EYES SCH ×2 (09:00→21:11)
[2017-05-18] MEDS: FUROSEMIDE 10 MG/ML 4 ML VIAL IV SCH ×2 (09:00→21:12)
[2017-05-18] MEDS: LOSARTAN 50 MG TAB PO SCH (09:01)
[2017-05-18] MEDS: MAGNESIUM OXIDE 400 MG TAB PO SCH ×2 (09:01→21:12)
[2017-05-18] MEDS: OXYMETAZOLINE 0.05% NASL SPRAY 15 ML NASAL SCH ×2 (10:10→21:12)
--- NOTE | 2017-05-18 15:02 | P.PN ---
Subjective PHYSICAL EXAMINATION: HEENT: Head is atraumatic, normocephalic. Pupils equal, round. Neck is supple. There is elevated jugular venous pressure. HEART EXAMINATION: Heart S1 S2 1 blowing systolic murmur at the apex conducted to the base and neck CHEST EXAMINATION: Lungs are clear to auscultation and precussion. No chest wall tenderness is noted on palpation or with deep breathing. ABDOMEN: Soft, nontender. Bowel sounds are heard. No organomegaly noted. EXTREMITIES: 2+ peripheral pulses with trace evidence of peripheral edema and no calf tenderness noted. NEUROLOGIC patient is awake, alert and oriented -3. Objective - Vital Signs Vital signs: Vital Signs Temp 97.8 F 05/18/17 08:25 Pulse 105 H 05/18/17 08:25 Resp 18 05/18/17 08:25 BP 118/63 05/18/17 08:25 Pulse Ox 97 05/18/17 08:25 Intake & Output 05/17/17 05/18/17 05/18/17 18:59 06:59 18:59 Intake Total 809.247 710.823 Output Total 400 900 900 Balance 409.247 -189.177 -900 Intake: Intake, IV Titration 329.247 230.823 Amount Heparin Sodium,Porcine/ 329.247 230.823 D5w Pmx 25,000 unit In Dextrose/Water 1 500ml. bag @ 12 UNITS/KG/HR 15. 24 mls/hr IV .Q24H [facility] Rx #:[id number] Oral 480 480 Output: Urine 400 900 900 Other: Voiding Method Bedside Commode Bedside Commode Bedside Commode # Voids 1 0 # Bowel Movements 0 0 - Exam PHYSICAL EXAMINATION: HEENT: Head is atraumatic, normocephalic. Pupils equal, round. Neck is supple. There is no elevated jugular venous pressure. HEART EXAMINATION: Heart S1 and S2 irregularly irregular a systolic murmur is heard CHEST EXAMINATION: Lungs are clear to auscultation and precussion. No chest wall tenderness is noted on palpation or with deep breathing. ABDOMEN: Soft, nontender. Bowel sounds are heard. No organomegaly noted. EXTREMITIES: 2+ peripheral pulses with no evidence of peripheral edema and no calf tenderness noted. Igor wrap in place to right lower extremity NEUROLOGIC patient is awake, alert and oriented -3. . - Labs CBC & Chem 7: 05/16/17 15:25 05/16/17 15:25 Labs: Abnormal Lab Results - Last 24 Hours (Table) 05/18/17 05/18/17 Range/Units 06:00 12:03 APTT 44.6 H 55.7 H (22.0-30.0) sec Microbiology - Last 24 Hours (Table) 05/18/17 05:00 Urine Culture - Preliminary Urine,Voided 05/16/17 15:25 Blood Culture Gram Stain - Preliminary Blood Blood Culture - Preliminary Coagulase Negative Staph 05/16/17 15:25 Blood Culture - Final Blood Assessment and Plan Plan: Assessment and plan #1 symptoms of progressive fatigue with associated palpitations and shortness of breath. EKG on admission showed atrial fibrillation with rapid ventricular response, appears to be of new onset. #2 positive UTI with low-grade fever #3 hypertension #4 history of DVT and PE # 5 Sjogren's #6 rheumatoid arthritis #7 history of recurrent bladder infections #8 coronary artery disease with prior stent placement to the RCA #9 hyperlipidemia #10 elevated BNP level with no clear-cut evidence of congestive cardiac failure Plan Echocardiogram with Doppler study was performed which revealed an ejection fraction of 35-40%. The patient's rate does at times appeared to still be in the 120 range, we will add Lanoxin to her medication regime. Continue current dose of IV Lasix. DNP note has been reviewed, I agree with a documented findings and plan of care. Patient was seen and examined.
[2017-05-18] MEDS: SODIUM CHLORIDE 0.9% 1,000 ML IV SCH (18:32)
[2017-05-18] MEDS: CARVEDILOL 3.125 MG TAB PO SCH (18:33)
[2017-05-18] MEDS: DULoxetine HCL 60 MG CAPSULE.DR PO SCH (18:33)
[2017-05-18] MEDS: HEPARIN SODIUM,PORCINE/D5W PMX 25,000 UNIT in DEXTROSE/WATER 1 500ML.BAG IV SCH (18:56)
[2017-05-18] MEDS: DIGOXIN 250 MCG/ML 2 ML AMP IVP SCH (18:57)
[2017-05-18] MEDS: ASPIRIN 81 MG CHEW PO SCH (21:11)
[2017-05-18] MEDS: ALPRAZolam 0.25 MG TAB PO SCH (21:11)
[2017-05-18] MEDS: PRAVASTATIN SODIUM 20 MG TAB PO SCH (21:11)
[2017-05-19] MEDS: DIGOXIN 250 MCG/ML 2 ML AMP IVP SCH (00:49)
[2017-05-19] MEDS: NITROGLYCERIN OINT 1 INCH/GM PACKET TOPICAL SCH ×2 (05:48→11:07)
[2017-05-19] MEDS: CARVEDILOL 3.125 MG TAB PO SCH (08:18)
[2017-05-19] MEDS: cycloSPORINE 0.05% OPHTH 0.4 ML DROPERETTE BOTH EYES SCH ×2 (08:18→22:11)
[2017-05-19] MEDS: MAGNESIUM OXIDE 400 MG TAB PO SCH ×2 (08:19→22:11)
[2017-05-19] MEDS: DILTIAZEM ORAL 30 MG TAB PO SCH (08:19)
[2017-05-19] MEDS: FUROSEMIDE 10 MG/ML 4 ML VIAL IV SCH (08:19)
[2017-05-19] MEDS: FLUTICASONE 50MCG/SPRAY NASAL 16GM EA NOSTRIL SCH (08:19)
[2017-05-19] MEDS: DIGOXIN 250 MCG TAB PO SCH (08:19)
[2017-05-19] MEDS: OXYMETAZOLINE 0.05% NASL SPRAY 15 ML NASAL SCH ×2 (08:19→22:12)
[2017-05-19] MEDS: LOSARTAN 50 MG TAB PO SCH (08:20)
[2017-05-19 08:39] LABS: CH 28.8; CHCM 31.6; HCT 39.6 % (34.0-46.0); HDW 2.73; HGB 12.5 gm/dL (11.4-16.0); Hypochromasia Slight; MCHC 31.6 g/dL (31.0-37.0); MCV 91.9 fL (80.0-100.0); Mean Platelet Volume 8.5; RBC 4.31 m/uL (3.80-5.40); RDW 14.4 % (11.5-15.5); WBC 10.2 k/uL (3.8-10.6)
[2017-05-19 08:47] LABS: Anion Gap 11 mmol/L; Blood Urea Nitrogen 16 mg/dL (7-17); Calcium 9.1 mg/dL (8.4-10.2); Carbon Dioxide 28 mmol/L (22-30); Chloride 101 mmol/L (98-107); Glucose 95 mg/dL (74-99); Non-African American GFR(MDRD) >60 (>60 ml/min/1.73 sqM); Potassium 3.9 mmol/L (3.5-5.1); Sodium 140 mmol/L (137-145)
[2017-05-19] MEDS ORDERED: DILTIAZEM ORAL 30 MG TAB PO ONE (12:15)
[2017-05-19] MEDS: APIXABAN 2.5 MG TABLET PO SCH ×2 (13:10→22:11)
--- NOTE | 2017-05-19 14:39 | XR ---
EXAMINATION TYPE: XR chest 2V DATE OF EXAM: 05/19/2017 COMPARISON: 05/16/2017 HISTORY: 81-year-old female follow-up CHF TECHNIQUE: Frontal and lateral views FINDINGS: The heart is upper limits of normal in size. Atherosclerotic arch calcifications. Diffuse interstitia l prominence, relative upper lung lucencies, right apical pleural parenchymal scarring, and hyperinfl ation with flattening of the hemidiaphragms. Improved appearance to the pulmonary vasculature. No sig nificant effusion. IMPRESSION: COPD and interstitial changes which appear largely chronic. Given some of the interstitial changes se en on CT, consider inflammatory processes such as interstitial pneumonitis as well. No traci CHF. No pleural effusion. Left lower lobe pulmonary nodule seen on recent CT is not radiographically apparent . 3 month follow-up CT recommended to ensure stability.
--- NOTE | 2017-05-19 14:51 | P.PN ---
Subjective This is a 81-year-old female who follows with Dr. Ross in the office. She has history of hypertension, prior DVT and PE, rheumatoid arthritis , Sjogren's syndrome, frequent bladder infections, she presents to the hospital with symptoms of progressive fatigue with associated shortness of breath. Patient states that she had recently been treated for a urinary tract infection which she gets frequently. She's felt extremely tired, she did check her blood pressure and heart rate at home, she noted her heart rate to be in the upper 120s and for this reason came to the emergency room for further evaluation. She does state that she noted her heart racing fast. Patient denies any history of atrial fibrillation in the past. EKG on arrival here showed atrial fibrillation with a rapid ventricular response. Chest x-ray did not reveal any evidence for acute pulmonary disease. CAT scan of the brain revealed age- related atrophic and chronic small vessel ischemic change. CTA negative for PE. Blood pressure 140/80 on admission, 97% on room air, heart rate in the 130s to 140s, temperature 99.0. Blood pressure this morning 114/60, heart rate in the 120s, on Cardizem drip at 5 mg per hour. White blood cell count 9.0, hemoglobin 12.1, d-dimer 2.3, potassium 4.8, BUN 12, creatinine 0.6. BNP 6870, troponin 0.019. 05/19/2017. Patient continues to be in atrial fibrillation her rate for the most part today is in the 90s, at times it goes up into the 11/12/1929 range. She diuresed well. We will change her over to oral Lasix today. We will discontinue the Cardizem because of the cardiomyopathy discontinue Coreg and changed to Toprol. Objective - Vital Signs Vital signs: Vital Signs Temp 99 F 05/19/17 08:00 Pulse 128 H 05/19/17 11:10 Resp 17 05/19/17 11:10 BP 126/58 05/19/17 11:10 Pulse Ox 94 L 05/19/17 11:10 Intake & Output 05/18/17 05/19/17 05/19/17 18:59 06:59 18:59 Intake Total 265.917 402 410 Output Total 900 1200 600 Balance -634.083 -798 -190 Weight 62 kg 61.1 kg Intake: IV 242 Heparin Sodium,Porcine/ 242 D5w Pmx 25,000 unit In Dextrose/Water 1 500ml. bag @ 12 UNITS/KG/HR 15. 24 mls/hr IV .Q24H [facility] Rx #:[id number] Intake, IV Titration 265.917 160 50 Amount Heparin Sodium,Porcine/ 265.917 D5w Pmx 25,000 unit In Dextrose/Water 1 500ml. bag @ 12 UNITS/KG/HR 15. 24 mls/hr IV .Q24H [facility] Rx #:[id number] Sodium Chloride 0.9% 1, 160 000 ml @ 20 mls/hr IV . Q24H [facility] Rx#:[id number] cefTRIAXone 1,000 mg In 50 Sodium Chloride 0.9% 50 ml @ 100 mls/hr IVPB Q24HR [facility] Rx#:[id number] Oral 360 Output: Urine 900 1200 600 Other: Voiding Method Bedside Commode Bedside Commode Bedside Commode # Voids 1 - Exam PHYSICAL EXAMINATION: HEENT: Head is atraumatic, normocephalic. Pupils equal, round. Neck is supple. There is no elevated jugular venous pressure. HEART EXAMINATION: Heart S1 and S2 irregularly irregular a systolic murmur is heard CHEST EXAMINATION: Lungs are clear to auscultation and precussion. No chest wall tenderness is noted on palpation or with deep breathing. ABDOMEN: Soft, nontender. Bowel sounds are heard. No organomegaly noted. EXTREMITIES: 2+ peripheral pulses with no evidence of peripheral edema and no calf tenderness noted. Igor wrap in place to right lower extremity NEUROLOGIC patient is awake, alert and oriented -3. . - Labs CBC & Chem 7: 05/19/17 07:19 05/19/17 07:19 Labs: Abnormal Lab Results - Last 24 Hours (Table) 05/19/17 Range/Units 07: APTT 50.5 H (22.0-30.0) sec Microbiology - Last 24 Hours (Table) 05/18/17 05:00 Urine Culture - Final Urine,Voided 05/16/17 15:25 Blood Culture Gram Stain - Final Blood Blood Culture - Final Staphylococcus simulans 05/17/17 19:59 Blood Culture - Preliminary Blood No Growth after 24 hours 05/17/17 19:40 Blood Culture - Preliminary Blood No Growth after 24 hours Assessment and Plan Plan: Assessment and plan #1 symptoms of progressive fatigue with associated palpitations and shortness of breath. EKG on admission showed atrial fibrillation with rapid ventricular response, appears to be of new onset. #2 positive UTI with low-grade fever #3 hypertension #4 history of DVT and PE # 5 Sjogren's #6 rheumatoid arthritis #7 history of recurrent bladder infections #8 coronary artery disease with prior stent placement to the RCA #9 hyperlipidemia #10 elevated BNP level with no clear-cut evidence of congestive cardiac failure Plan Echocardiogram with Doppler study was performed which revealed an ejection fraction of 35-40%. We will discontinue the Coreg, changed to Toprol for more optimal heart rate control and discontinue Cardizem because of a cardiomyopathy. DNP note has been reviewed, I agree with a documented findings and plan of care. Patient was seen and examined.
[2017-05-19] MEDS ORDERED: DILTIAZEM ORAL 60 MG TAB PO SCH (16:00)
[2017-05-19] MEDS: METOPROLOL SUCCINATE (ER) 100 MG TAB.ER.24H PO SCH (16:30)
[2017-05-19] MEDS: DULoxetine HCL 60 MG CAPSULE.DR PO SCH (16:31)
[2017-05-19] MEDS: FUROSEMIDE 40 MG TAB PO SCH (16:31)
[2017-05-19] MEDS: SODIUM CHLORIDE 0.9% 1,000 ML IV SCH (17:34)
[2017-05-19] MEDS: ALPRAZolam 0.25 MG TAB PO PRN (19:03)
[2017-05-19] MEDS: ASPIRIN 81 MG CHEW PO SCH (22:11)
[2017-05-19] MEDS: ALPRAZolam 0.25 MG TAB PO SCH (22:11)
[2017-05-19] MEDS: PRAVASTATIN SODIUM 20 MG TAB PO SCH (22:11)
[2017-05-20] MEDS: APIXABAN 2.5 MG TABLET PO SCH (08:05)
[2017-05-20] MEDS: DIGOXIN 250 MCG TAB PO SCH (08:05)
[2017-05-20] MEDS: FUROSEMIDE 40 MG TAB PO SCH (08:05)
[2017-05-20] MEDS: LOSARTAN 50 MG TAB PO SCH (08:05)
[2017-05-20] MEDS: METOPROLOL SUCCINATE (ER) 100 MG TAB.ER.24H PO SCH (08:05)
[2017-05-20] MEDS: FLUTICASONE 50MCG/SPRAY NASAL 16GM EA NOSTRIL SCH (08:05)
[2017-05-20] MEDS: MAGNESIUM OXIDE 400 MG TAB PO SCH (08:06)
[2017-05-20] MEDS: cycloSPORINE 0.05% OPHTH 0.4 ML DROPERETTE BOTH EYES SCH (08:06)
[2017-05-20 10:36] VITALS: RESP 18
[2017-05-20 12:08] LABS: Glucose,Whole Blood 125 mg/dL (75-99)
--- NOTE | 2017-05-20 12:12 | P.PN ---
Subjective This is a 81-year-old female who follows with Dr. Ross in the office. She has history of hypertension, prior DVT and PE, rheumatoid arthritis , Sjogren's syndrome, frequent bladder infections, she presents to the hospital with symptoms of progressive fatigue with associated shortness of breath. Patient states that she had recently been treated for a urinary tract infection which she gets frequently. She's felt extremely tired, she did check her blood pressure and heart rate at home, she noted her heart rate to be in the upper 120s and for this reason came to the emergency room for further evaluation. She does state that she noted her heart racing fast. Patient denies any history of atrial fibrillation in the past. EKG on arrival here showed atrial fibrillation with a rapid ventricular response. Chest x-ray did not reveal any evidence for acute pulmonary disease. CAT scan of the brain revealed age- related atrophic and chronic small vessel ischemic change. CTA negative for PE. Blood pressure 140/80 on admission, 97% on room air, heart rate in the 130s to 140s, temperature 99.0. Heart rate was still poorly controlled yesterday therefore patient was switched from Coreg to Toprol, Cardizem was discontinued due to cardiomyopathy and she was initiated on digoxin. Heart rate through the night and this morning are much better controlled in the 80s. Objective - Vital Signs Vital signs: Vital Signs Temp 98.7 F 05/20/17 08:00 Pulse 68 05/20/17 08:00 Resp 18 05/20/17 08:00 BP 131/48 05/20/17 08:00 Pulse Ox 97 05/20/17 08:07 Intake & Output 05/19/17 05/20/17 05/20/17 18:59 06:59 18:59 Intake Total 890 Output Total 850 Balance 40 Weight 60.2 kg Intake: Intake, IV Titration 50 Amount cefTRIAXone 1,000 mg In 50 Sodium Chloride 0.9% 50 ml @ 100 mls/hr IVPB Q24HR [facility] Rx#:[id number] Oral 840 Output: Urine 850 Other: Voiding Method Bedside Commode Bedside Commode # Voids 2 - Exam PHYSICAL EXAMINATION: HEENT: Head is atraumatic, normocephalic. Pupils equal, round. Neck is supple. There is no elevated jugular venous pressure. HEART EXAMINATION: Heart sounds irregularly irregular, S1 and S2 normal with a systolic murmur. CHEST EXAMINATION: Lungs are clear to auscultation and precussion. No chest wall tenderness is noted on palpation or with deep breathing. ABDOMEN: Soft, nontender. Bowel sounds are heard. No organomegaly noted. EXTREMITIES: 2+ peripheral pulses with no evidence of peripheral edema and no calf tenderness noted. NEUROLOGIC patient is awake, alert and oriented x3. . - Labs CBC & Chem 7: 05/19/17 07:19 05/19/17 07:19 Labs: Microbiology - Last 24 Hours (Table) 05/17/17 19:59 Blood Culture - Preliminary Blood No Growth after 48 hours 05/17/17 19:40 Blood Culture - Preliminary Blood No Growth after 48 hours 05/18/17 05:00 Urine Culture - Final Urine,Voided Assessment and Plan Plan: Assessment and plan #1 symptoms of progressive fatigue with associated palpitations and shortness of breath. EKG on admission showed atrial fibrillation with rapid ventricular response, appears to be of new onset. #2 positive UTI with low-grade fever #3 hypertension #4 history of DVT and PE # 5 Sjogren's #6 rheumatoid arthritis #7 history of recurrent bladder infections #8 coronary artery disease with prior stent placement to the RCA #9 hyperlipidemia #10 elevated BNP level with no clear-cut evidence of congestive cardiac failure From cardiology's perspective, decrease digoxin to 125 g daily. Continue Toprol 100 mg by mouth daily. Patient will need a digoxin level. Further recommendations to follow. RETURNING OFFICER note has been reviewed, I agree with a documented findings and plan of care. Patient was seen and examined.
[2017-05-20] MEDS: OXYMETAZOLINE 0.05% NASL SPRAY 15 ML NASAL SCH (12:34)
[2017-05-20 12:41] VITALS: BP 134/70; PULSE 116; TEMP 96.8
[2017-05-21] MEDS ORDERED: DIGOXIN 125 MCG TAB PO SCH (09:00)
--- NOTE | 2017-05-23 13:44 | DS ---
FINAL DIAGNOSES: 1. Atrial fibrillation with rapid ventricular rate, new onset. 2. Urinary tract infection with low grade fever. 3. Hypertension. 4. History of deep venous thrombosis, pulmonary embolism. 5. History of ( ). 6. History of rheumatoid arthritis. DISCHARGE DISPOSITION: The patient is being discharged in stable condition with guarded prognosis. Total time taken 35 minutes. HISTORY OF PRESENT ILLNESS: This 81-year-old woman with past medical history of ( ) and other multiple medical problems, the patient was seen by Cardiology. Digoxin was used. The patient improved significantly. On exam, vital signs are stable. Cardiovascular: S1, S2 normal. Abdomen soft. Nervous system: No focal deficits. DISCHARGE ADVICE AND MEDICATIONS: 1. Diet is cardiac. 2. Activity limited until follow up. 3. Follow-up with Dr. Brown in two to three days. 4. Follow-up with cardiology as advised. Medications are: 1. Tylenol prn. 2. Pro-Air prn. 3. Xanax 0.25 mg q.h.s. 4. Eliquis 2.5 mg po b.i.d. 5. Ecotrin 81 mg. 6. ( ). 7. Coreg 1.563 and 3.125. 8. Flexeril 10 mg po daily. 9. Cyclosporin 0.05% one drop daily. 10. Decadron solution. 11. Lanoxin 125 mcg po daily. 12. Cymbalta 60 mg with ( ) Fentanyl patch 50 mcg q72 hours. 13. Fluticasone two sprays daily. 14. Lasix 40 mg daily. 15. Probiotic one daily. 16. Lidocaine one application daily. 17. ( ). 18. ( ). 19. ( ). 20. Magnesium carbonate. 21. Magnesium oxide 250 mg po b.i.d. 22. Antivert 12.5 mg t.i.d. 23. Melatonin. 24. ( ). 25. Multivitamins one po daily. 26. [place]-3 fatty acid one daily. 27. Protonix 40 daily. 28. Potassium 550 mg b.i.d. 29. Pravachol 20 mg q.h.s. 30. ( ). MTDD
== END 2017-05-20 18:04 | disposition home or self-care (01) | DRG 309 ==
LOC: EC 14:49 → 6SEL 16:52
PROVIDERS: ADMIT Family Medicine; ATTEND Family Medicine
DX: I48.91 Unspecified atrial fibrillation (principal); N39.0 Urinary tract infection, site not specified; I42.9 Cardiomyopathy, unspecified; M06.9 Rheumatoid arthritis, unspecified; I10 Essential (primary) hypertension; E78.5 Hyperlipidemia, unspecified; I25.10 Atherosclerotic heart disease of native coronary artery without angina pectoris; I25.2 Old myocardial infarction; M35.00 Sjogren syndrome, unspecified; M79.7 Fibromyalgia; M19.90 Unspecified osteoarthritis, unspecified site; J44.9 Chronic obstructive pulmonary disease, unspecified; F40.240 Claustrophobia; Z79.899 Other long term (current) drug therapy; Z87.891 Personal history of nicotine dependence; Z95.5 Presence of coronary angioplasty implant and graft; Z79.82 Long term (current) use of aspirin; Z88.1 Allergy status to other antibiotic agents; Z88.5 Allergy status to narcotic agent; Z88.2 Allergy status to sulfonamides; Z88.8 Allergy status to other drugs, medicaments and biological substances
CPT/HCPCS: 36415; 70450; 71020; 71275; 80048; 80053; 81001; 82550; 82553; 83735; 83880; 84443; 84484; 85025; 85027; 85379; 85610; 85730; 87040; 87077; 87086; 87186; 93005; 93306; 94640; 94760; 96365; 96375; 99291

== ENCOUNTER 2017-06-19 20:23 | Inpatient (IN) | payer MEDICARE ==
--- NOTE | 2017-06-19 21:26 | ED ---
SOB HPI - General Chief Complaint: Shortness of Breath Stated Complaint: Diff Breathing, high pulse rate Time Seen by Provider: 06/19/17 20:51 Source: patient Mode of arrival: wheelchair Limitations: no limitations - History of Present Illness Initial Comments: This 81-year-old white female presents with a complaint of some shortness of breath and tachycardia for the last 2 days. She relates that she has been watching her heart rate and it started elevating over 102 days ago. She apparently has been breaking out in sweats at times as well. She states that this is very similar to her previous hospitalization 1 month ago with atrial fibrillation. They relate that they had a significantly difficult time converting her and essentially just rate control of her instead. She apparently spent 6 days in the hospital. She denies any chest pain. She has had some mild fatigue. She denies any leg swelling or edema but does have a chronic wound to her right leg. She denies any other complaints or modifying factors. - Related Data Home Medications Medication Instructions Recorded Confirmed ALPRAZolam [Xanax] 0.25 mg PO HS 04/30/14 06/19/17 Aspirin EC [Ecotrin Low Dose] 81 mg PO HS 04/30/14 06/19/17 Biotin 5 mg PO DAILY 04/30/14 06/19/17 Cyclobenzaprine [Flexeril] 10 mg PO BID PRN 04/30/14 06/19/17 Furosemide [Lasix] 40 mg PO DAILY PRN 04/30/14 06/19/17 Loratadine [Claritin] 10 mg PO BID 04/30/14 06/19/17 Pravastatin Sodium [Pravachol] 20 mg PO HS 04/30/14 06/19/17 cycloSPORINE 0.05% OPHTH SOLN 1 drop BOTH EYES BID 04/30/14 06/19/17 [Restasis] Mag Carb/Aluminum Hydrox/Algin 30 ml PO QID PRN 05/21/14 06/19/17 [Gaviscon Liquid] Melatonin 10 mg PO HS PRN 08/26/15 06/19/17 Acetaminophen [Tylenol Arthritis 1,300 mg PO BID 01/23/16 06/19/17 8-hr] Albuterol Sulfate [Proair Hfa] 2 puff INHALATION RT-QID PRN 01/23/16 06/19/17 Sennosides-Docusate Sodium 3 tab PO QAM 01/23/16 06/19/17 [Senokot-S] Cranberry Fruit Extract [Theracran] 650 mg PO DAILY 05/16/17 06/19/17 DULoxetine HCL [Cymbalta] 60 mg PO HS 05/16/17 06/19/17 Dexamethasone [Decadron Intensol 0.5 mg MUCOUS MEM TID PRN 05/16/17 06/19/17 Oral Solution] Fluticasone Nasal [place] [Flonase 2 spr EA NOSTRIL DAILY 05/16/17 06/19/17 Nasal [place]] Lidocaine-Prilocaine Cream [Emla 1 applic TOPICAL QID 05/16/17 06/19/17 Cream 2.5%/2.5%] Losartan Potassium 50 mg PO HS 05/16/17 06/19/17 Lysine [l-Lysine] 1,000 mg PO TID 05/16/17 06/19/17 Multivitamins, Thera [Multivitamin 1 tab PO HS 05/16/17 06/19/17 (formulary)] Pantoprazole Sodium [Protonix] 40 mg PO QAM 05/16/17 06/19/17 fentaNYL 50MCG/HR PATCH [Duragesic 50 mcg TRANSDERM Q48H 05/16/17 06/19/17 50MCG/HR] Amiodarone [Cordarone] 200 mg PO HS 06/19/17 06/19/17 Fish Oil/Dha/Epa [Fish Oil 1,200 1 cap PO HS 06/19/17 06/19/17 mg Fish Oil] Magnesium 400 mg PO 06/19/17 06/19/17 Spironolactone [Aldactone] 25 mg PO DAILY@1200 06/19/17 06/19/17 Previous Rx's Medication Instructions Recorded Apixaban [Eliquis] 2.5 mg PO BID tab 05/20/17 Metoprolol Succinate (ER) [Toprol 100 mg PO DAILY #30 tab 05/20/17 XL] Allergies Allergy/AdvReac Type Severity Reaction Status Date / Time levofloxacin [From Levaquin] Allergy Unknown Verified 06/19/17 21:59 morphine Allergy Itching Verified 06/19/17 21:59 nickel Allergy REDNESS OF Verified 06/19/17 21:59 SKIN AND BLISTERING oxycodone HCl [From Percodan] Allergy Itching Verified 06/19/17 21:59 oxycodone terephthalate Allergy Itching Verified 06/19/17 21:59 [From Percodan] amoxicillin [Amoxicillin] AdvReac Diarrhea Verified 06/19/17 21:59 calcium carbonate AdvReac Rapid Verified 06/19/17 21:59 [From Salagen] Heart Rate cephalexin monohydrate AdvReac Unknown Verified 06/19/17 21:59 [From Keflex] codeine AdvReac Nausea & Verified 06/19/17 21:59 Vomiting magnesium [From [place]] AdvReac Rapid Verified 06/19/17 21:59 Heart Rate methotrexate AdvReac NERVE Verified 06/19/17 21:59 DAMAGE TO HANDS AND FEET pilocarpine HCl AdvReac Rapid Verified 06/19/17 21:59 [From Salagen] Heart Rate pseudoephedrine HCl AdvReac Nausea Verified 06/19/17 21:59 [From Sudafed] Sulfa (Sulfonamide AdvReac Nausea & Verified 06/19/17 21:59 Antibiotics) Vomiting valacyclovir HCl AdvReac Unknown Verified 06/19/17 21:59 [From Valtrex] Review of Systems ROS Statement: Those systems with pertinent positive or pertinent negative responses have been documented in the HPI. ROS Other: All systems not noted in ROS Statement are negative. Past Medical History Past Medical History: Fibromyalgia, Hypertension, Myocardial Infarction (AL), Osteoarthritis (OA), Pneumonia, Pulmonary Embolus (PE), Rheumatoid Arthritis (RA ), Skin Disorder Additional Past Medical History / Comment(s): Hx of frequent bladder infections , sjogren's syndrome, bursitis, vasculitis, R leg calf wound, allergies, silent mi."superficial blood clot rt leg". Last Myocardial Infarction Date:: 2002? History of Any Multi-Drug Resistant Organisms: None Reported Past Surgical History: Adenoidectomy, Appendectomy, Back Surgery, Bladder Surgery, Cholecystectomy, Heart Catheterization With Stent, Tonsillectomy Additional Past Surgical History / Comment(s): eligio hand sx trigger finger sx Past Anesthesia/Blood Transfusion Reactions: No Reported Reaction Additional Past Anesthesia/Blood Transfusion Reaction / Comment(s): clausterphobia Date of Last Stent Placement:: 2008 Past Psychological History: Anxiety Smoking Status: Former smoker Past Alcohol Use History: Occasional Past Drug Use History: None Reported - Past Family History Father Family Medical History: Cancer Mother Family Medical History: Cancer General Exam - General Exam Comments Initial Comments: GENERAL: The patient is well nourished and well hydrated. VITAL SIGNS: Heart rate, blood pressure, respiratory rate reviewed as recorded in nurse's notes. EYES: Pupils are round and reactive. Extraocular movements are intact. No conjunctival / lid redness or swelling. ENT: No external evidence of injury, swelling, or ecchymosis. Airway is patent. Throat is clear. NECK: Nontender. No swelling or evidence of injury. No subcutaneous emphysema. Trachea is midline. No thyroid mass. HEART: There is a significant tachycardic heart rate with an irregular rhythm. Good peripheral pulses. LUNGS/CHEST: Breath sounds clear and equal bilaterally. No rales, rhonchi, or wheezes. No ecchymosis, subcutaneous emphysema, or tenderness. ABDOMEN: Abdomen soft without tenderness. No palpable masses or organomegaly. No peritoneal signs. No abdominal wall swelling or ecchymosis. EXTREMITIES: No extremity tenderness. Normal muscle tone and function. No thoracolumbar tenderness. NEUROLOGIC: Sensation is grossly intact. Cranial nerve exam reveals face is symmetrical, tongue is midline, speech is clear. SKIN: No abrasions or ecchymosis is noted. No induration or masses noted. There is a chronic bandaged wound present to the right anterior leg which apparently has been present for 3 years. PSYCHIATRIC: Alert and oriented. Appropriate behavior and judgment. Limitations: no limitations Course Vital Signs 06/19/17 06/19/17 06/19/17 20:31 21:28 21:46 Temperature 98.3 F Pulse Rate 110 H 149 H Pulse Rate [ 126 H Stem Shaper ] Respiratory 20 16 Rate Blood Pressure 148/72 131/94 O2 Sat by Pulse 98 97 Oximetry 06/19/17 06/19/17 22:07 22:48 Temperature Pulse Rate 153 H 134 H Pulse Rate [ Stem Shaper ] Respiratory 18 18 Rate Blood Pressure 120/95 166/86 O2 Sat by Pulse 99 97 Oximetry Medical Decision Making - Medical Decision Making The patient was seen and examined. All diagnostics were reviewed. The patient was placed on quality assurance monitor and this does show atrial fibrillation with a tachycardic heart rate. The EKG shows atrial fibrillation with a rapid ventricular response and a heart rate of 146. There is no acute ST-T wave changes identified. The CT interval is not measurable, the QRS duration is 108 , and the QTc interval is 495. She is given a Cardizem bolus as well as a Cardizem drip. She is already on Eloquis for blood thinning. The laboratories reviewed and the BNP is elevated as well as the potassium. Remainder labs are essentially within normal limits. The heart rate is still elevated on recheck and then Cardizem drip was increased. The chest x-ray shows some pulmonary fibrosis but no acute process. It is felt as though she would benefit from admission to the hospital. The case will be discussed with medicine in the near future and patient will be admitted to the [facility] with cardiology to consult. They did a digoxin level is subtherapeutic and additional digoxin was given intravenously. Approximately 30 minutes critical care time was utilized and the treatment of the patient. - Lab Data Result diagrams: 06/19/17 21:19 06/19/17 21:19 Lab Results 06/19/17 06/19/17 06/19/17 Range/Units 21:19 21:19 21:19 WBC 9.3 (3.8-10.6) k/uL RBC 4.83 (3.80-5.40) m/uL Hgb 14.3 (11.4-16.0) gm/dL Hct 44.0 (34.0-46.0) % MCV 91.1 (80.0-100.0) fL MCH 29.5 (25.0-35.0) pg MCHC 32.4 (31.0-37.0) g/dL RDW 14.7 (11.5-15.5) % Plt Count 260 (150-450) k/uL Neutrophils % 59 % Lymphocytes % 27 % Monocytes % 7 % Eosinophils % 3 % Basophils % 1 % Neutrophils # 5.5 (1.3-7.7) k/uL Lymphocytes # 2.5 (1.0-4.8) k/uL Monocytes # 0.7 (0-1.0) k/uL Eosinophils # 0.2 (0-0.7) k/uL Basophils # 0.0 (0-0.2) k/uL Hypochromasia Slight PT (9.0-12.0) sec INR (<1.2) APTT (22.0-30.0) sec Sodium 137 (137-145) mmol/L Potassium 5.8 H (3.5-5.1) mmol/L Chloride 106 (98-107) mmol/L Carbon Dioxide 22 (22-30) mmol/L Anion Gap 9 mmol/L BUN 24 H (7-17) mg/dL Creatinine 0.70 (0.52-1.04) mg/dL Est GFR (MDRD) Af Amer >60 (>60 ml/min/1.73 sqM) Est GFR (MDRD) Non-Af >60 (>60 ml/min/1.73 sqM) Glucose 113 H (74-99) mg/dL Calcium 9.3 (8.4-10.2) mg/dL Total Bilirubin 0.8 (0.2-1.3) mg/dL AST 35 (14-36) U/L ALT 25 (9-52) U/L Alkaline Phosphatase 72 (38-126) U/L Total Creatine Kinase <20 L (30-135) U/L CK-MB (CK-2) 0.5 (0.0-2.4) ng/mL CK-MB (CK-2) Rel Index Troponin I <0.012 (0.000-0.034) ng/mL NT-Pro-B Natriuret Pep pg/mL Total Protein 6.6 (6.3-8.2) g/dL Albumin 3.7 (3.5-5.0) g/dL TSH 1.290 (0.465-4.680) mIU/L Digoxin <0.4 ng/mL 06/19/17 06/19/17 Range/Units 21:19 21:19 WBC (3.8-10.6) k/uL RBC (3.80-5.40) m/uL Hgb (11.4-16.0) gm/dL Hct (34.0-46.0) % MCV (80.0-100.0) fL MCH (25.0-35.0) pg MCHC (31.0-37.0) g/dL RDW (11.5-15.5) % Plt Count (150-450) k/uL Neutrophils % % Lymphocytes % % Monocytes % % Eosinophils % % Basophils % % Neutrophils # (1.3-7.7) k/uL Lymphocytes # (1.0-4.8) k/uL Monocytes # (0-1.0) k/uL Eosinophils # (0-0.7) k/uL Basophils # (0-0.2) k/uL Hypochromasia PT 10.9 (9.0-12.0) sec INR 1.1 (<1.2) APTT 27.5 (22.0-30.0) sec Sodium (137-145) mmol/L Potassium (3.5-5.1) mmol/L Chloride (98-107) mmol/L Carbon Dioxide (22-30) mmol/L Anion Gap mmol/L BUN (7-17) mg/dL Creatinine (0.52-1.04) mg/dL Est GFR (MDRD) Af Amer (>60 ml/min/1.73 sqM) Est GFR (MDRD) Non-Af (>60 ml/min/1.73 sqM) Glucose (74-99) mg/dL Calcium (8.4-10.2) mg/dL Total Bilirubin (0.2-1.3) mg/dL AST (14-36) U/L ALT (9-52) U/L Alkaline Phosphatase (38-126) U/L Total Creatine Kinase (30-135) U/L CK-MB (CK-2) (0.0-2.4) ng/mL CK-MB (CK-2) Rel Index Troponin I (0.000-0.034) ng/mL NT-Pro-B Natriuret Pep 3400 pg/mL Total Protein (6.3-8.2) g/dL Albumin (3.5-5.0) g/dL TSH (0.465-4.680) mIU/L Digoxin ng/mL Disposition Clinical Impression: Atrial fibrillation with rapid ventricular response, Dyspnea, Hyperkalemia Disposition: ADMITTED IP TO THIS [facility] Condition: Fair Time of Disposition: 22:54 Decision Date: 06/19/17 Decision Time: 22:55
[2017-06-19 21:33] LABS: Basophils % (A) 1 %; CH 28.3; CHCM 31.2; Eosinophils # (A) 0.2 k/uL (0-0.7); Eosinophils % (A) 3 %; HDW 2.67; HGB 14.3 gm/dL (11.4-16.0); Hypochromasia Slight; Luc # (Auto) 0.39; Luc % (Auto) 4; Lymphocytes # (A) 2.5 k/uL (1.0-4.8); Lymphocytes % (A) 27 %; MCH 29.5 pg (25.0-35.0); MCHC 32.4 g/dL (31.0-37.0); MCV 91.1 fL (80.0-100.0); Mean Platelet Volume 8.5; Monocytes # (A) 0.7 k/uL (0-1.0); Monocytes % (A) 7 %; Neutrophils # (A) 5.5 k/uL (1.3-7.7); Neutrophils % (A) 59 %; RBC 4.83 m/uL (3.80-5.40); RDW 14.7 % (11.5-15.5); WBC 9.3 k/uL (3.8-10.6); WBC (Perox) 9.53
[2017-06-19] MEDS: DILTIAZEM 125 MG in SODIUM CHLORIDE 0.9% 100 ML IV ONE (21:38)
--- NOTE | 2017-06-19 21:38 | XR ---
EXAMINATION TYPE: XR chest 1V portable DATE OF EXAM: 06/19/2017 COMPARISON: 05/19/2017 HISTORY: Short of breath TECHNIQUE: Single frontal view of the chest is obtained. FINDINGS: There is slight blunting of left costophrenic angle. There is a small interstitial infiltr ate in the left lower lobe. There is no heart failure. There are no hilar masses. Thoracic aorta is a theromatous. IMPRESSION: Mild fibrotic change and pleural reaction at the left lung base is unchanged compared to last exam. No heart failure.
[2017-06-19 21:43] LABS: INR 1.1 (<1.2); Partial Thromboplastin Time 27.5 sec (22.0-30.0); Prothrombin Time 10.9 sec (9.0-12.0)
[2017-06-19 21:48] LABS: ALT 25 U/L (9-52); AST 35 U/L (14-36); Alkaline Phosphatase 72 U/L (38-126); Anion Gap 9 mmol/L; Blood Urea Nitrogen 24 mg/dL (7-17); Calcium 9.3 mg/dL (8.4-10.2); Carbon Dioxide 22 mmol/L (22-30); Chloride 106 mmol/L (98-107); Digoxin <0.4 ng/mL; Glucose 113 mg/dL (74-99); Non-African American GFR(MDRD) >60 (>60 ml/min/1.73 sqM); Sodium 137 mmol/L (137-145); Total Bilirubin 0.8 mg/dL (0.2-1.3); Total Protein 6.6 g/dL (6.3-8.2)
[2017-06-19 21:50] LABS: Potassium 5.8 mmol/L (3.5-5.1)
[2017-06-19 21:59] LABS: Creatine Kinase <20 U/L (30-135)
[2017-06-19 22:11] LABS: Creatine Kinase MB 0.5 ng/mL (0.0-2.4); Troponin I <0.012 ng/mL (0.000-0.034)
[2017-06-19] MEDS ORDERED: SODIUM POLYSTYRENE SULFONATE 15 GM/60 ML BOTTLE PO STA (22:48)
[2017-06-19] MEDS ORDERED: DIGOXIN 250 MCG/ML 2 ML AMP IVP ONE (22:53)
[2017-06-19] MEDS ORDERED: ACETAMINOPHEN TAB 325 MG TAB PO PRN (22:55)
[2017-06-19] MEDS ORDERED: NALOXONE 0.4 MG/ML 1 ML VIAL IV PRN (22:55)
[2017-06-19] MEDS ORDERED: ALBUTEROL NEBULIZED 2.5 MG/3 ML INHALATION PRN (22:59)
[2017-06-19] MEDS ORDERED: MAGNESIUM CARBONATE PO PRN (22:59)
[2017-06-19] MEDS ORDERED: DEXAMETHASONE 0.5 MG TAB PO PRN (22:59)
[2017-06-19] MEDS ORDERED: ALGINIC ACID PO PRN (22:59)
[2017-06-19] MEDS ORDERED: ALUMINUM HYDROXIDE PO PRN (22:59)
[2017-06-19] MEDS ORDERED: FUROSEMIDE 40 MG TAB PO PRN (22:59)
[2017-06-20] MEDS: MELATONIN 5 MG TABLET PO PRN ×2 (02:12→20:48)
[2017-06-20 02:52] LABS: Anion Gap 8 mmol/L; Blood Urea Nitrogen 22 mg/dL (7-17); Calcium 9.3 mg/dL (8.4-10.2); Carbon Dioxide 26 mmol/L (22-30); Chloride 103 mmol/L (98-107); Glucose 105 mg/dL (74-99); Non-African American GFR(MDRD) >60 (>60 ml/min/1.73 sqM); Potassium 4.5 mmol/L (3.5-5.1); Sodium 137 mmol/L (137-145)
[2017-06-20 03:03] LABS: Creatine Kinase <20 U/L (30-135)
[2017-06-20 03:17] LABS: Creatine Kinase MB 0.6 ng/mL (0.0-2.4); Troponin I <0.012 ng/mL (0.000-0.034)
[2017-06-20] MEDS ORDERED: NON-FORMULARY DRUG (Biotin [Biotin] 5 MG) PO SCH (09:00)
[2017-06-20] MEDS ORDERED: METOPROLOL SUCCINATE (ER) 100 MG TAB.ER.24H PO SCH (09:00)
[2017-06-20] MEDS ORDERED: CRANBERRY FRUIT EXTRACT 650 MG PO SCH (09:00)
[2017-06-20] MEDS ORDERED: LYSINE 1000 MG PO SCH (09:00)
[2017-06-20] MEDS: cycloSPORINE 0.05% OPHTH 0.4 ML DROPERETTE BOTH EYES SCH ×2 (09:07→20:50)
[2017-06-20] MEDS: FLUTICASONE 50MCG/SPRAY NASAL 16GM EA NOSTRIL SCH (09:07)
[2017-06-20] MEDS: SENNOSIDES-DOCUSATE SODIUM 1 EACH TAB PO SCH (09:07)
[2017-06-20] MEDS: APIXABAN 2.5 MG TABLET PO SCH ×2 (09:08→20:49)
[2017-06-20] MEDS: LIDOCAINE-PRILOCAINE 2.5-2.5% CREAM 5 GM TUBE TOPICAL SCH ×4 (09:08→20:36)
[2017-06-20] MEDS: LORATADINE 10 MG TAB PO SCH ×2 (09:08→20:50)
[2017-06-20 10:19] LABS: Creatine Kinase <20 U/L (30-135)
[2017-06-20 10:33] LABS: Creatine Kinase MB 0.7 ng/mL (0.0-2.4); Troponin I <0.012 ng/mL (0.000-0.034)
--- NOTE | 2017-06-20 10:37 | P.CRDCN ---
History of Present Illness Consult date: 06/20/17 Requesting physician: Cirilo Brown Consult reason: atrial fibrillation Chief complaint: Shortness of breath, palpitations, diaphoresis History of present illness: This is a pleasant 81-year-old female who follows regularly with Dr. Murdock in the office. She has a known history of hypertension, prior pulmonary embolism, prior DVT, rheumatoid arthritis, Sjogren's syndrome, frequent bladder infections, paroxysmal atrial fibrillation on Eliquis for anticoagulation, coronary artery disease with prior stent placement. Patient also has a chronic wound on her right lower extremity for which she goes to the wound clinic and sees Dr. Alcaraz Echo which was performed in April of this year revealed an ejection fraction of 35-40%. She was admitted at that time with atrial fibrillation with rapid ventricular response at that time it appeared to be new onset for her. She presents to the hospital on this occasion with symptoms of shortness of breath, feeling her heart racing fast, and having episodes of extreme diaphoresis. EKG on presentation here showed atrial fibrillation with a rapid ventricular response, incomplete left bundle branch block pattern and nonspecific ST-T wave changes. Chest x-ray revealed mild fibrotic changes and pleural reaction to the left lung base" changed from prior. Blood pressure on arrival here 148/70 with a heart rate that went up into the 150s, 99% on 2 L. CBC normal. Potassium on admission 5.8, 4.5 this morning. BUN 22, creatinine 0.7. Troponins negative 2. BNP level 3400, troponin 0.012. TSH normal. This morning she continues to be in atrial fibrillation, heart rate in the 90s, on a Cardizem drip at 5. Past Medical History Past Medical History: Fibromyalgia, Hypertension, Myocardial Infarction (ID), Osteoarthritis (OA), Pneumonia, Pulmonary Embolus (PE), Rheumatoid Arthritis (RA ), Skin Disorder Additional Past Medical History / Comment(s): Hx of frequent bladder infections , sjogren's syndrome, bursitis, vasculitis, R leg calf wound, allergies, silent mi."superficial blood clot rt leg". Last Myocardial Infarction Date:: 2002? History of Any Multi-Drug Resistant Organisms: None Reported Past Surgical History: Adenoidectomy, Appendectomy, Back Surgery, Bladder Surgery, Cholecystectomy, Heart Catheterization With Stent, Tonsillectomy Additional Past Surgical History / Comment(s): eligio hand sx trigger finger sx Past Anesthesia/Blood Transfusion Reactions: No Reported Reaction Additional Past Anesthesia/Blood Transfusion Reaction / Comment(s): clausterphobia Date of Last Stent Placement:: 2008 Past Psychological History: Anxiety Additional Psychological History / Comment(s): pt lives with daughter satinder in a single story home that has 2 porch steps.1 pet cat. pt is independant but has a cane/walker/bsc if needed.has a cleaning/chore person from [email or web address]. Smoking Status: Former smoker Past Alcohol Use History: Occasional Past Drug Use History: None Reported - Past Family History Father Family Medical History: Cancer Additional Family Medical History / Comment(s): colon cancer 40s Mother Family Medical History: Cancer Medications and Allergies Home Medications Medication Instructions Recorded Confirmed Type ALPRAZolam [Xanax] 0.25 mg PO HS 04/30/14 06/19/17 History Aspirin EC [Ecotrin Low Dose] 81 mg PO HS 04/30/14 06/19/17 History Biotin 5 mg PO DAILY 04/30/14 06/19/17 History Cyclobenzaprine [Flexeril] 10 mg PO BID PRN 04/30/14 06/19/17 History Furosemide [Lasix] 40 mg PO DAILY PRN 04/30/14 06/19/17 History Loratadine [Claritin] 10 mg PO BID 04/30/14 06/19/17 History Pravastatin Sodium [Pravachol] 20 mg PO HS 04/30/14 06/19/17 History cycloSPORINE 0.05% OPHTH SOLN 1 drop BOTH EYES BID 04/30/14 06/19/17 History [Restasis] Mag Carb/Aluminum Hydrox/Algin 30 ml PO QID PRN 05/21/14 06/19/17 History [Gaviscon Liquid] Melatonin 10 mg PO HS PRN 08/26/15 06/19/17 History Acetaminophen [Tylenol Arthritis 1,300 mg PO BID 01/23/16 06/19/17 History 8-hr] Albuterol Sulfate [Proair Hfa] 2 puff INHALATION RT-QID PRN 01/23/16 06/19/17 History Sennosides-Docusate Sodium 3 tab PO QAM 01/23/16 06/19/17 History [Senokot-S] Cranberry Fruit Extract [Theracran] 650 mg PO DAILY 05/16/17 06/19/17 History DULoxetine HCL [Cymbalta] 60 mg PO HS 05/16/17 06/19/17 History Dexamethasone [Decadron Intensol 0.5 mg MUCOUS MEM TID PRN 05/16/17 06/19/17 History Oral Solution] Fluticasone Nasal [place] [Flonase 2 spr EA NOSTRIL DAILY 05/16/17 06/19/17 History Nasal [place]] Lidocaine-Prilocaine Cream [Emla 1 applic TOPICAL QID 05/16/17 06/19/17 History Cream 2.5%/2.5%] Losartan Potassium 50 mg PO HS 05/16/17 06/19/17 History Lysine [l-Lysine] 1,000 mg PO TID 05/16/17 06/19/17 History Multivitamins, Thera [Multivitamin 1 tab PO HS 05/16/17 06/19/17 History (formulary)] Pantoprazole Sodium [Protonix] 40 mg PO QAM 05/16/17 06/19/17 History fentaNYL 50MCG/HR PATCH [Duragesic 50 mcg TRANSDERM Q48H 05/16/17 06/19/17 History 50MCG/HR] Amiodarone [Cordarone] 200 mg PO HS 06/19/17 06/19/17 History Fish Oil/Dha/Epa [Fish Oil 1,200 1 cap PO HS 06/19/17 06/19/17 History mg Fish Oil] Magnesium 400 mg PO HS 06/19/17 06/19/17 History Spironolactone [Aldactone] 25 mg PO DAILY@1200 06/19/17 06/19/17 History Allergies Allergy/AdvReac Type Severity Reaction Status Date / Time levofloxacin [From Levaquin] Allergy Unknown Verified 06/19/17 21:59 morphine Allergy Itching Verified 06/19/17 21:59 nickel Allergy REDNESS OF Verified 06/19/17 21:59 SKIN AND BLISTERING oxycodone HCl [From Percodan] Allergy Itching Verified 06/19/17 21:59 oxycodone terephthalate Allergy Itching Verified 06/19/17 21:59 [From Percodan] amoxicillin [Amoxicillin] AdvReac Diarrhea Verified 06/19/17 21:59 calcium carbonate AdvReac Rapid Verified 06/19/17 21:59 [From [place]] Heart Rate cephalexin monohydrate AdvReac Unknown Verified 06/19/17 21:59 [From Keflex] codeine AdvReac Nausea & Verified 06/19/17 21:59 Vomiting magnesium [From [place]] AdvReac Rapid Verified 06/19/17 21:59 Heart Rate methotrexate AdvReac NERVE Verified 06/19/17 21:59 DAMAGE TO HANDS AND FEET pilocarpine HCl AdvReac Rapid Verified 06/19/17 21:59 [From [place]] Heart Rate pseudoephedrine HCl AdvReac Nausea Verified 06/19/17 21:59 [From Sudafed] Sulfa (Sulfonamide AdvReac Nausea & Verified 06/19/17 21:59 Antibiotics) Vomiting valacyclovir HCl AdvReac Unknown Verified 06/19/17 21:59 [From Valtrex] Physical Exam Vitals: Vital Signs Temp Pulse Pulse Pulse Resp BP BP 06/20/17 08:00 98.4 F 98 17 107/64 06/20/17 04:00 97 F L 97 16 148/81 06/20/17 00:28 105 H 18 123/75 06/20/17 00:21 103 H 06/19/17 23:44 97.3 F L 130 H 18 122/71 06/19/17 23:10 96.9 F L 145 H 16 118/67 06/19/17 22:48 134 H 18 166/86 06/19/17 22:07 153 H 18 120/95 06/19/17 21:46 126 H 06/19/17 21:28 149 H 16 131/94 06/19/17 20:31 98.3 F 110 H 20 148/72 Pulse Ox 06/20/17 08:00 96 06/20/17 04:00 95 06/20/17 00:28 98 06/20/17 00:21 06/19/17 23:44 97 06/19/17 23:10 96 06/19/17 22:48 97 06/19/17 22:07 99 06/19/17 21:46 06/19/17 21:28 97 06/19/17 20:31 98 Intake and Output 06/19/17 06/20/17 06/20/17 22:59 06:59 14:59 Intake Total 6 38.5 120 Balance 6 38.5 120 Intake: Intake, IV Titration 6 38.5 Amount Diltiazem 125 mg In 6 38.5 Sodium Chloride 0.9% 100 ml @ 5 MG/HR 5 mls/hr IV .Q24H ONE Rx#:[id number] Oral 120 Other: Voiding Method Bedside Commode # Voids 200 Weight 58.967 kg 58.1 kg PHYSICAL EXAMINATION: HEENT: Head is atraumatic, normocephalic. Pupils equal, round. Neck is supple. There is no elevated jugular venous pressure. HEART EXAMINATION: Heart S1 and S2 irregularly irregular CHEST EXAMINATION: Lungs are clear with fine crackles to the bases. ABDOMEN: Soft, nontender. Bowel sounds are heard. No organomegaly noted. EXTREMITIES: 2+ peripheral pulses with trace evidence of peripheral edema and no calf tenderness noted. Dressing in place to right lower extremity NEUROLOGIC patient is awake, alert and oriented -3. . Results 06/19/17 21:06/20/17 02:25 Cardiac Enzymes 06/19/17 06/19/17 06/20/17 Range/Units 21:19 21:19 02:25 AST 35 (14-36) U/L CK-MB (CK-2) 0.5 0.6 (0.0-2.4) ng/mL Troponin I <0.012 <0.012 (0.000-0.034) ng/mL Coagulation 06/19/17 Range/Units 21:19 PT 10.9 (9.0-12.0) sec APTT 27.5 (22.0-30.0) sec CBC 06/19/17 Range/Units 21:19 WBC 9.3 (3.8-10.6) k/uL RBC 4.83 (3.80-5.40) m/uL Hgb 14.3 (11.4-16.0) gm/dL Hct 44.0 (34.0-46.0) % Plt Count 260 (150-450) k/uL Comprehensive Metabolic Panel 06/19/17 06/20/17 Range/Units 21:19 02:25 Sodium 137 137 (137-145) mmol/L Potassium 5.8 H 4.5 (3.5-5.1) mmol/L Chloride 106 103 (98-107) mmol/L Carbon Dioxide 22 26 (22-30) mmol/L BUN 24 H 22 H (7-17) mg/dL Creatinine 0.70 0.70 (0.52-1.04) mg/dL Glucose 113 H 105 H (74-99) mg/dL Calcium 9.3 9.3 (8.4-10.2) mg/dL AST 35 (14-36) U/L ALT 25 (9-52) U/L Alkaline Phosphatase 72 (38-126) U/L Total Protein 6.6 (6.3-8.2) g/dL Albumin 3.7 (3.5-5.0) g/dL Current Medications Generic Name Dose Route Start Last Admin Trade Name Freq PRN Reason Stop Dose Admin Acetaminophen 650 mg 06/19/17 22:55 Tylenol Tab PO Q6HR PRN Mild Pain or Fever > 100.5 Albuterol Sulfate 2.5 mg 06/19/17 22:59 Ventolin Nebulized INHALATION RT-QID PRN Dyspnea Alprazolam 0.25 mg 06/20/17 21:00 Xanax PO HS JOHANNA Amiodarone HCl 200 mg 06/20/17 21:00 Cordarone PO HS JOHANNA Apixaban 2.5 mg 06/20/17 09:00 06/20/17 09:08 Eliquis PO 2.5 mg BID JOHANNA Administration Aspirin 81 mg 06/20/17 21:00 Aspirin PO HS JOHANNA Cyclobenzaprine HCl 10 mg 06/19/17 22:59 Flexeril PO BID PRN Spasms/Pain Cyclosporine 1 drops 06/20/17 09:00 06/20/17 09:07 Restasis 0.05% Ophth Soln BOTH EYES 1 drops BID JOHANNA Administration Duloxetine HCl 60 mg 06/20/17 21:00 Cymbalta PO HS JOHANNA Fentanyl 1 patch 06/20/17 09:00 06/20/17 09:06 Duragesic 50mcg/Hr Patch TRANSDERM 1 patch Q48H JOHANNA Administration Fluticasone Propionate 2 spray 06/20/17 09:00 06/20/17 09:07 Flonase Nasal [place] EA NOSTRIL 2 spray DAILY JOHANNA Administration Furosemide 40 mg 06/19/17 22:59 Lasix PO DAILY PRN Edema Diltiazem HCl 125 mg/ Sodium 125 mls @ 5 mls/hr 06/19/17 21:30 06/20/17 01:30 Chloride IV 06/20/17 21:29 5 mg/hr .Q24H ONE 5 mls/hr Protocol Titration 5 MG/HR Lidocaine/Prilocaine 1 applic 06/20/17 09:00 06/20/17 09:08 Emla Cream 2.5%/2.5% TOPICAL Not Given QID JOHANNA Loratadine 10 mg 06/20/17 09:00 06/20/17 09:08 Claritin PO 10 mg BID JOHANNA Administration Magnesium Oxide 400 mg 06/20/17 21:00 Mag-Ox PO HS JOHANNA Melatonin 10 mg 06/19/17 22:59 06/20/17 02:12 Melatonin PO 10 mg HS PRN Administration Insomnia Metoprolol Succinate 100 mg 06/20/17 09:00 06/20/17 09:08 Toprol Xl PO 100 mg DAILY JOHANNA Administration Multivitamins 1 each 06/20/17 21:00 Theragran PO HS JOHANNA Naloxone HCl 0.2 mg 06/19/17 22:55 Narcan IV Q2M PRN Opioid Reversal Pantoprazole Sodium 40 mg 06/20/17 09:00 Protonix IV DAILY JOHANNA Pravastatin Sodium 20 mg 06/20/17 21:00 Pravachol PO HS JOHANNA Senna/Docusate Sodium 3 each 06/20/17 09:00 06/20/17 09:07 Senokot-S PO 3 each QAM JOHANNA Administration Spironolactone 25 mg 06/20/17 12:00 Aldactone PO DAILY@1200 JOHANNA Intake and Output 06/19/17 06/20/17 06/20/17 22:59 06:59 14:59 Intake Total 6 38.5 120 Balance 6 38.5 120 Intake: Intake, IV Titration 6 38.5 Amount Diltiazem 125 mg In 6 38.5 Sodium Chloride 0.9% 100 ml @ 5 MG/HR 5 mls/hr IV .Q24H ONE Rx#:[id number] Oral 120 Other: Voiding Method Bedside Commode # Voids 200 Weight 58.967 kg 58.1 kg 06/19/17 21:19 06/20/17 02:25 EKG Interpretations (text) EKG shows atrial fibrillation with rapid ventricular response. Assessment and Plan Plan: Assessment and plan #1 atrial fibrillation with rapid ventricular response in a patient with known history of paroxysmal atrial fibrillation. #2 hypertension #3 history of prior DVT and pulmonary embolism #4 Sjogren's syndrome #5 rheumatoid arthritis #6 history of recurrent bladder infections #7 known history of coronary artery disease with prior RCA stent #8 hyperlipidemia Plan TSH level has been obtained which came back to be normal. We will repeat the patient's echocardiogram with Doppler study, her most recent echo which was performed in April of this year revealed an ejection fraction of 35-40%. Continue Eliquis for anticoagulation. Further recommendations to follow. DNP note has been reviewed, I agree with a documented findings and plan of care. Patient was seen and examined.
[2017-06-20] MEDS: SPIRONOLACTONE 25 MG TAB PO SCH (11:31)
[2017-06-20] MEDS: PANTOPRAZOLE 40 MG/10 ML VIAL IV SCH (11:31)
--- NOTE | 2017-06-20 12:10 | ECHOF ---
Referral Reason:afib MEASUREMENTS -------- HEIGHT: 154.9 cm WEIGHT: 58.1 kg BP: 107/64 IVSd: 1.3 cm (0.6 - 1.1) LVIDd: 2.7 cm (3.9 - 5.3) LVPWd: 1.4 cm (0.6 - 1.1) EDV(Teich): 28 ml IVSs: 2.3 cm LVIDs: 1.8 cm LVPWs: 1.2 cm %IVS Thck: 72 % ESV(Teich): 10 ml EF(Teich): 63 % %FS: 33 % SV(Teich): 18 ml LALs A4C: 6.4 cm LAAs A4C: 22.9 cm LAESV A-L A4C: 70 ml LAESV MOD A4C: 67 ml LALs A2C: 5.9 cm LAAs A2C: 23.4 cm LAESV A-L A2C: 79 ml LAESV MOD A2C: 77 ml LAESV(A-L): 78 ml LAESV Index (A-L): 49.73 ml/m Ao Diam: 2.7 cm (2.0 - 3.7) AV Cusp: 1.6 cm (1.5 - 2.6) LA Diam: 3.4 cm (2.7 - 3.8) MV EXCURSION: 12.148 mm (> 18.000) MV EF SLOPE: 107 mm/s (70 - 150) EPSS: 0.7 cm MR Vmax: 2.20 m/s MR maxP.43 mmHg AV Vmax: 0.86 m/s AV maxP.14 mmHg TR Vmax: 3.46 m/s TR maxP.84 mmHg RAP: 5.00 mmHg RVSP: 52.84 mmHg FINDINGS -------- Atrial fibrillation. This was a technically good study. There is mild concentric left ventricular hypertrophy. Overall left ventricular systolic function is normal with, an EF between 55 - 60 %. The right ventricle is normal in size and function. LA is severely dilated >40 ml/m2 RA appears enlarged. Aortic valve is trileaflet and is mildly thickened. The mitral valve leaflets are mildly thickened. Moderate mitral regurgitation is present. Moderate tricuspid regurgitation present. There is mild to moderate pulmonary hypertension. The right ventricular systolic pressure, as measured by Doppler, is 52.84mmHg. Pulmonic valve appears structurally normal. The aortic root size is normal. The pericardium is normal. CONCLUSIONS -------- 1. Atrial fibrillation. 2. Moderate mitral regurgitation is present. 3. Moderate tricuspid regurgitation present. 4. There is mild to moderate pulmonary hypertension. 5. The right ventricular systolic pressure, as measured by Doppler, is 52.84mmHg. 6. Pulmonic valve appears structurally normal. 7. The aortic root size is normal. 8. The pericardium is normal. 9. This was a technically good study. 10. There is mild concentric left ventricular hypertrophy. 11. Overall left ventricular systolic function is normal with, an EF between 55 - 60 %. 12. The right ventricle is normal in size and function. 13. LA is severely dilated >40 ml/m2 14. RA appears enlarged. 15. Aortic valve is trileaflet and is mildly thickened. 16. The mitral valve leaflets are mildly thickened. [employer]ER: Lynette Sheridan RDCS
[2017-06-20] MEDS: DILTIAZEM 125 MG in SODIUM CHLORIDE 0.9% 100 ML IV ONE (13:36)
--- NOTE | 2017-06-20 14:25 | P.CRDCN ---
History of Present Illness Consult reason: atrial fibrillation History of present illness: Patient interviewed and examined. Patient admitted with palpitations. About 2 weeks back I started her on low-dose amiodarone 200 mg by mouth daily and metoprolol succinate 100 mg by mouth daily rest of digoxin. She came in with Phyllis ryder with RVR. She has barely been on amiodarone for about 2 weeks. Her rates are controlled on IV Cardizem low dose. I will increase metoprolol 215 g by mouth daily I will discontinue digoxin but continue amiodarone at a low dose of 200 mg by mouth daily. The chest x-ray does show a small infiltrate that seemed new but she denies any polys symptoms at this time and white count is normal Check TSH She is to walk and had in the hallways while on metoprolol 150 minutes. Rate to make sure that her atrial fibrillation is well controlled while amiodarone shows its full effect in the next 4-6 weeks Keep her in the hospital to make sure that her rates are controlled before discharge Please see full dictation by Dr. ballesteros Past Medical History Past Medical History: Fibromyalgia, Hypertension, Myocardial Infarction (CT), Osteoarthritis (OA), Pneumonia, Pulmonary Embolus (PE), Rheumatoid Arthritis (RA ), Skin Disorder Additional Past Medical History / Comment(s): Hx of frequent bladder infections , sjogren's syndrome, bursitis, vasculitis, R leg calf wound, allergies, silent mi."superficial blood clot rt leg". Last Myocardial Infarction Date:: 2002? History of Any Multi-Drug Resistant Organisms: None Reported Past Surgical History: Adenoidectomy, Appendectomy, Back Surgery, Bladder Surgery, Cholecystectomy, Heart Catheterization With Stent, Tonsillectomy Additional Past Surgical History / Comment(s): eligio hand sx trigger finger sx Past Anesthesia/Blood Transfusion Reactions: No Reported Reaction Additional Past Anesthesia/Blood Transfusion Reaction / Comment(s): clausterphobia Date of Last Stent Placement:: 2008 Past Psychological History: Anxiety Additional Psychological History / Comment(s): pt lives with daughter satinder in a single story home that has 2 porch steps.1 pet cat. pt is independant but has a cane/walker/bsc if needed.has a cleaning/chore person from [employer] on [address]. Smoking Status: Former smoker Past Alcohol Use History: Occasional Past Drug Use History: None Reported - Past Family History Father Family Medical History: Cancer Additional Family Medical History / Comment(s): colon cancer 40s Mother Family Medical History: Cancer Medications and Allergies Home Medications Medication Instructions Recorded Confirmed Type ALPRAZolam [Xanax] 0.25 mg PO HS 04/30/14 06/19/17 History Aspirin EC [Ecotrin Low Dose] 81 mg PO HS 04/30/14 06/19/17 History Biotin 5 mg PO DAILY 04/30/14 06/19/17 History Cyclobenzaprine [Flexeril] 10 mg PO BID PRN 04/30/14 06/19/17 History Furosemide [Lasix] 40 mg PO DAILY PRN 04/30/14 06/19/17 History Loratadine [Claritin] 10 mg PO BID 04/30/14 06/19/17 History Pravastatin Sodium [Pravachol] 20 mg PO HS 04/30/14 06/19/17 History cycloSPORINE 0.05% OPHTH SOLN 1 drop BOTH EYES BID 04/30/14 06/19/17 History [Restasis] Mag Carb/Aluminum Hydrox/Algin 30 ml PO QID PRN 05/21/14 06/19/17 History [Gaviscon Liquid] Melatonin 10 mg PO HS PRN 08/26/15 06/19/17 History Acetaminophen [Tylenol Arthritis 1,300 mg PO BID 01/23/16 06/19/17 History 8-hr] Albuterol Sulfate [Proair Hfa] 2 puff INHALATION RT-QID PRN 01/23/16 06/19/17 History Sennosides-Docusate Sodium 3 tab PO QAM 01/23/16 06/19/17 History [Senokot-S] Cranberry Fruit Extract [Theracran] 650 mg PO DAILY 05/16/17 06/19/17 History DULoxetine HCL [Cymbalta] 60 mg PO HS 05/16/17 06/19/17 History Dexamethasone [Decadron Intensol 0.5 mg MUCOUS MEM TID PRN 05/16/17 06/19/17 History Oral Solution] Fluticasone Nasal [place] [Flonase 2 spr EA NOSTRIL DAILY 05/16/17 06/19/17 History Nasal [place]] Lidocaine-Prilocaine Cream [Emla 1 applic TOPICAL QID 05/16/17 06/19/17 History Cream 2.5%/2.5%] Losartan Potassium 50 mg PO HS 05/16/17 06/19/17 History Lysine [l-Lysine] 1,000 mg PO TID 05/16/17 06/19/17 History Multivitamins, Thera [Multivitamin 1 tab PO HS 05/16/17 06/19/17 History (formulary)] Pantoprazole Sodium [Protonix] 40 mg PO QAM 05/16/17 06/19/17 History fentaNYL 50MCG/HR PATCH [Duragesic 50 mcg TRANSDERM Q48H 05/16/17 06/19/17 History 50MCG/HR] Amiodarone [Cordarone] 200 mg PO HS 06/19/17 06/19/17 History Fish Oil/Dha/Epa [Fish Oil 1,200 1 cap PO HS 06/19/17 06/19/17 History mg Fish Oil] Magnesium 400 mg PO HS 06/19/17 06/19/17 History Spironolactone [Aldactone] 25 mg PO DAILY@1200 06/19/17 06/19/17 History Allergies Allergy/AdvReac Type Severity Reaction Status Date / Time levofloxacin [From Levaquin] Allergy Unknown Verified 06/19/17 21:59 morphine Allergy Itching Verified 06/19/17 21:59 nickel Allergy REDNESS OF Verified 06/19/17 21:59 SKIN AND BLISTERING oxycodone HCl [From Percodan] Allergy Itching Verified 06/19/17 21:59 oxycodone terephthalate Allergy Itching Verified 06/19/17 21:59 [From Percodan] amoxicillin [Amoxicillin] AdvReac Diarrhea Verified 06/19/17 21:59 calcium carbonate AdvReac Rapid Verified 06/19/17 21:59 [From Salagen] Heart Rate cephalexin monohydrate AdvReac Unknown Verified 06/19/17 21:59 [From Keflex] codeine AdvReac Nausea & Verified 06/19/17 21:59 Vomiting magnesium [From Sal[place]] AdvReac Rapid Verified 06/19/17 21:59 Heart Rate methotrexate AdvReac NERVE Verified 06/19/17 21:59 DAMAGE TO HANDS AND FEET pilocarpine HCl AdvReac Rapid Verified 06/19/17 21:59 [From Salagen] Heart Rate pseudoephedrine HCl AdvReac Nausea Verified 06/19/17 21:59 [From Sudafed] Sulfa (Sulfonamide AdvReac Nausea & Verified 06/19/17 21:59 Antibiotics) Vomiting valacyclovir HCl AdvReac Unknown Verified 06/19/17 21:59 [From Valtrex] Physical Exam Vitals: Vital Signs Temp Pulse Pulse Pulse Resp BP BP 06/20/17 12:00 97.4 F L 83 16 103/53 06/20/17 08:00 98.4 F 98 17 107/64 06/20/17 04:00 97 F L 97 16 148/81 06/20/17 00:28 105 H 18 123/75 06/20/17 00:21 103 H 06/19/17 23:44 97.3 F L 130 H 18 122/71 06/19/17 23:10 96.9 F L 145 H 16 118/67 06/19/17 22:48 134 H 18 166/86 06/19/17 22:07 153 H 18 120/95 06/19/17 21:46 126 H 06/19/17 21:28 149 H 16 131/94 06/19/17 20:31 98.3 F 110 H 20 148/72 Pulse Ox 06/20/17 12:00 98 06/20/17 08:00 96 06/20/17 04:00 95 06/20/17 00:28 98 06/20/17 00:21 06/19/17 23:44 97 06/19/17 23:10 96 06/19/17 22:48 97 06/19/17 22:07 99 06/19/17 21:46 06/19/17 21:28 97 06/19/17 20:31 98 Intake and Output 06/19/17 06/20/17 06/20/17 22:59 06:59 14:59 Intake Total 6 38.5 300.5 Balance 6 38.5 300.5 Intake: Intake, IV Titration 6 38.5 60.5 Amount Diltiazem 125 mg In 6 38.5 60.5 Sodium Chloride 0.9% 100 ml @ 5 MG/HR 5 mls/hr IV .Q24H ONE Rx#:[id number] Oral 240 Other: Voiding Method Bedside Commode # Voids 200 Weight 58.967 kg 58.1 kg 58.1 kg Patient Weight 06/21/17 06:59 Weight 58.1 kg Results 06/19/17 21:19 06/20/17 02:25 Cardiac Enzymes 06/19/17 06/19/17 06/20/17 Range/Units 21:19 21:19 02:25 AST 35 (14-36) U/L CK-MB (CK-2) 0.5 0.6 (0.0-2.4) ng/mL Troponin I <0.012 <0.012 (0.000-0.034) ng/mL 06/20/17 Range/Units 08:49 AST (14-36) U/L CK-MB (CK-2) 0.7 (0.0-2.4) ng/mL Troponin I <0.012 (0.000-0.034) ng/mL Coagulation 06/19/17 Range/Units 21:19 PT 10.9 (9.0-12.0) sec APTT 27.5 (22.0-30.0) sec CBC 06/19/17 Range/Units 21:19 WBC 9.3 (3.8-10.6) k/uL RBC 4.83 (3.80-5.40) m/uL Hgb 14.3 (11.4-16.0) gm/dL Hct 44.0 (34.0-46.0) % Plt Count 260 (150-450) k/uL Comprehensive Metabolic Panel 06/19/17 06/20/17 Range/Units 21:19 02:25 Sodium 137 137 (137-145) mmol/L Potassium 5.8 H 4.5 (3.5-5.1) mmol/L Chloride 106 103 (98-107) mmol/L Carbon Dioxide 22 26 (22-30) mmol/L BUN 24 H 22 H (7-17) mg/dL Creatinine 0.70 0.70 (0.52-1.04) mg/dL Glucose 113 H 105 H (74-99) mg/dL Calcium 9.3 9.3 (8.4-10.2) mg/dL AST 35 (14-36) U/L ALT 25 (9-52) U/L Alkaline Phosphatase 72 (38-126) U/L Total Protein 6.6 (6.3-8.2) g/dL Albumin 3.7 (3.5-5.0) g/dL Current Medications Generic Name Dose Route Start Last Admin Trade Name Freq PRN Reason Stop Dose Admin Acetaminophen 650 mg 06/19/17 22:55 Tylenol Tab PO Q6HR PRN Mild Pain or Fever > 100.5 Albuterol Sulfate 2.5 mg 06/19/17 22:59 Ventolin Nebulized INHALATION RT-QID PRN Dyspnea Alprazolam 0.25 mg 06/20/17 21:00 Xanax PO HS JOHANNA Amiodarone HCl 200 mg 06/20/17 21:00 Cordarone PO HS JOHANNA Apixaban 2.5 mg 06/20/17 09:00 06/20/17 09:08 Eliquis PO 2.5 mg BID JOHANNA Administration Aspirin 81 mg 06/20/17 21:00 Aspirin PO HS JOHANNA Cyclobenzaprine HCl 10 mg 06/19/17 22:59 Flexeril PO BID PRN Spasms/Pain Cyclosporine 1 drops 06/20/17 09:00 06/20/17 09:07 Restasis 0.05% Ophth Soln BOTH EYES 1 drops BID JOHANNA Administration Duloxetine HCl 60 mg 06/20/17 21:00 Cymbalta PO HS JOHANNA Fentanyl 1 patch 06/20/17 09:00 06/20/17 09:06 Duragesic 50mcg/Hr Patch TRANSDERM 1 patch Q48H [facility] Administration Fluticasone Propionate 2 spray 06/20/17 09:00 06/20/17 09:07 Flonase Nasal [place] EA NOSTRIL 2 spray DAILY JOHANNA Administration Furosemide 40 mg 06/19/17 22:59 Lasix PO DAILY PRN Edema Diltiazem HCl 125 mg/ Sodium 125 mls @ 5 mls/hr 06/19/17 21:30 06/20/17 13:36 Chloride IV 06/20/17 21:29 5 mg/hr .Q24H ONE 5 mls/hr Protocol Administration 5 MG/HR Lidocaine/Prilocaine 1 applic 06/20/17 09:00 06/20/17 13:34 Emla Cream 2.5%/2.5% TOPICAL Not Given QID JOHANNA Loratadine 10 mg 06/20/17 09:00 06/20/17 09:08 Claritin PO 10 mg BID JOHANNA Administration Magnesium Oxide 400 mg 06/20/17 21:00 Mag-Ox PO HS JOHANNA Melatonin 10 mg 06/19/17 22:59 06/20/17 02:12 Melatonin PO 10 mg HS PRN Administration Insomnia Metoprolol Succinate 150 mg 06/21/17 09:00 Toprol Xl PO DAILY [facility] Multivitamins 1 each 06/20/17 21:00 Theragran PO HS JOHANNA Naloxone HCl 0.2 mg 06/19/17 22:55 Narcan IV Q2M PRN Opioid Reversal Pantoprazole Sodium 40 mg 06/20/17 09:00 06/20/17 11:31 Protonix IV 40 mg DAILY JOHANNA Administration Pravastatin Sodium 20 mg 06/20/17 21:00 Pravachol PO HS JOHANNA Senna/Docusate Sodium 3 each 06/20/17 09:00 06/20/17 09:07 Senokot-S PO 3 each QAM [facility] Administration Spironolactone 25 mg 06/20/17 12:00 06/20/17 11:31 Aldactone PO 25 mg DAILY@1200 JOHANNA Administration Intake and Output 06/19/17 06/20/17 06/20/17 22:59 06:59 14:59 Intake Total 6 38.5 300.5 Balance 6 38.5 300.5 Intake: Intake, IV Titration 6 38.5 60.5 Amount Diltiazem 125 mg In 6 38.5 60.5 Sodium Chloride 0.9% 100 ml @ 5 MG/HR 5 mls/hr IV .Q24H ONE Rx#:[id number] Oral 240 Other: Voiding Method Bedside Commode # Voids 200 Weight 58.967 kg 58.1 kg 58.1 kg Patient Weight 06/21/17 06:59 Weight 58.1 kg 06/19/17 21:19 06/20/17 02:25
[2017-06-20] MEDS ORDERED: ONDANSETRON 4 MG/2 ML VIAL IVP PRN (18:03)
[2017-06-20] MEDS: MAGNESIUM OXIDE 400 MG TAB PO SCH (20:36)
[2017-06-20] MEDS: ALPRAZolam 0.25 MG TAB PO SCH (20:48)
[2017-06-20] MEDS: CYCLOBENZAPRINE 10 MG TAB PO PRN (20:48)
[2017-06-20] MEDS: MULTIVITAMINS, THERA 1 EACH TAB PO SCH (20:49)
[2017-06-20] MEDS: ASPIRIN 81 MG CHEW PO SCH (20:49)
[2017-06-20] MEDS: PRAVASTATIN SODIUM 20 MG TAB PO SCH (20:49)
[2017-06-20] MEDS: DULoxetine HCL 60 MG CAPSULE.DR PO SCH (20:50)
[2017-06-20] MEDS ORDERED: NON-FORMULARY DRUG (Fish Oil/Dha/Epa [Fish Oil 1,200 Mg Fish Oil] 1 CAP) PO SCH (21:00)
[2017-06-20] MEDS ORDERED: AMIODARONE 200 MG TAB PO SCH (21:00)
[2017-06-21] MEDS ORDERED: DILTIAZEM 125 MG in SODIUM CHLORIDE 0.9% 100 ML IV SCH ×2
[2017-06-21 06:27] LABS: Basophils # (A) 0.1 k/uL (0-0.2); Basophils % (A) 1 %; CHCM 30.9; Eosinophils # (A) 0.5 k/uL (0-0.7); Eosinophils % (A) 6 %; HCT 39.7 % (34.0-46.0); HDW 2.49; HGB 12.5 gm/dL (11.4-16.0); Hypochromasia Slight; Luc # (Auto) 0.34; Luc % (Auto) 4; Lymphocytes # (A) 2.2 k/uL (1.0-4.8); Lymphocytes % (A) 27 %; MCH 28.8 pg (25.0-35.0); MCHC 31.6 g/dL (31.0-37.0); MCV 91.2 fL (80.0-100.0); Mean Platelet Volume 7.7; Monocytes # (A) 0.6 k/uL (0-1.0); Monocytes % (A) 8 %; Neutrophils # (A) 4.3 k/uL (1.3-7.7); Neutrophils % (A) 54 %; RBC 4.35 m/uL (3.80-5.40); RDW 14.6 % (11.5-15.5); WBC 7.9 k/uL (3.8-10.6); WBC (Perox) 8.62
[2017-06-21 06:32] LABS: ALT 27 U/L (9-52); AST 20 U/L (14-36); Alkaline Phosphatase 62 U/L (38-126); Anion Gap 8 mmol/L; Blood Urea Nitrogen 15 mg/dL (7-17); Calcium 9.1 mg/dL (8.4-10.2); Carbon Dioxide 24 mmol/L (22-30); Chloride 106 mmol/L (98-107); Digoxin 0.5 ng/mL; Glucose 92 mg/dL (74-99); Non-African American GFR(MDRD) >60 (>60 ml/min/1.73 sqM); Potassium 4.2 mmol/L (3.5-5.1); Sodium 138 mmol/L (137-145); Total Bilirubin 0.5 mg/dL (0.2-1.3); Total Protein 5.5 g/dL (6.3-8.2)
[2017-06-21] MEDS ORDERED: METOPROLOL SUCCINATE (ER) 100 MG TAB.ER.24H PO SCH (09:00)
[2017-06-21] MEDS: SENNOSIDES-DOCUSATE SODIUM 1 EACH TAB PO SCH (09:20)
[2017-06-21] MEDS: APIXABAN 2.5 MG TABLET PO SCH ×2 (09:20→21:05)
[2017-06-21] MEDS: cycloSPORINE 0.05% OPHTH 0.4 ML DROPERETTE BOTH EYES SCH ×2 (09:20→21:04)
[2017-06-21] MEDS: LORATADINE 10 MG TAB PO SCH ×2 (09:21→21:05)
[2017-06-21] MEDS: PANTOPRAZOLE 40 MG/10 ML VIAL IV SCH (09:21)
[2017-06-21] MEDS: LIDOCAINE-PRILOCAINE 2.5-2.5% CREAM 5 GM TUBE TOPICAL SCH ×4 (09:24→21:05)
[2017-06-21] MEDS: FLUTICASONE 50MCG/SPRAY NASAL 16GM EA NOSTRIL SCH (09:29)
[2017-06-21] MEDS ORDERED: METOPROLOL SUCCINATE (ER) 50 MG TAB.ER.24H PO ONE (11:15)
--- NOTE | 2017-06-21 11:16 | P.PN ---
Subjective Principal diagnosis: This is a 81-year-old female seen and examined this morning at the bedside. The patient was admitted for A. fib with RVR. Overall she is feeling well with minimal complaints. She is eating well without any nausea or vomiting. She denies shortness of breath or chest pain. She remained afebrile. Her blood pressure has been stable. She remains in A. fib with a heart rate ranging from 80-126. Laboratory data from this morning was reviewed. Objective - Vital Signs Vital signs: Vital Signs Temp 98 F 06/21/17 08:00 Pulse 126 H 06/21/17 08:00 Resp 17 06/21/17 08:00 BP 110/65 06/21/17 08:00 Pulse Ox 95 06/21/17 08:00 Intake & Output 06/20/17 06/21/17 06/21/17 18:59 06:59 18:59 Intake Total 420.5 100 600 Output Total 300 Balance 420.5 -200 600 Weight 58.1 kg 59.2 kg Intake: IV 100 0.9 @20mls 100 Intake, IV Titration 60.5 Amount Diltiazem 125 mg In 60.5 Sodium Chloride 0.9% 100 ml @ 5 MG/HR 5 mls/hr IV .Q24H ONE Rx#:[id number] Oral 360 600 Output: Urine 300 Other: Voiding Method Bedside Commode # Voids 1 - Exam GENERAL: Alert and oriented. Appears in no acute distress. Pleasant and cooperative RESPIRATORY: Lungs clear bilaterally, diminished at bases. No use of accessory muscles. Patient maintaining oxygen saturation greater than 92% on room air. CARDIOVASCULAR: Irregular, tachycardic, slight JVD noted EXTREMITIES: No edema noted. Palpable pedal pulses +2. Chronic wound to right leg wrapped with gauze. ABDOMEN: No distention noted. Abdomen soft and round. Normal active bowel sounds auscultated 4 quadrants. No pain or tenderness noted upon palpation. - Labs CBC & Chem 7: 06/21/17 05:37 06/21/17 05:31 Labs: Abnormal Lab Results - Last 24 Hours (Table) 06/21/17 Range/Units 05:31 Total Protein 5.5 L (6.3-8.2) g/dL Albumin 2.9 L (3.5-5.0) g/dL Microbiology - Last 24 Hours (Table) 06/19/17 21:19 Blood Culture - Preliminary Blood No Growth after 24 hours Assessment and Plan Plan: ASSESSMENT: 1. Atrial fibrillation with rapid ventricular response, present on admission 2. Hyperkalemia, present on admission, resolved 3. 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 History of coronary artery disease with stent placement PLAN: -Cardiology on consult and appreciate input and recommendations. -Digoxin and Cardizem drip have been discontinued per cardiology -Continue amiodarone per cardiology recommendations -Continue metoprolol per cardiology recommendations -GI prophylaxis: Patient receiving Protonix -DVT prophylaxis: Patient on Eliquis due to A. fib -Continue to monitor vital signs and address as appropriate -Monitor labs -Anticipate discharge within the next 24-48 hours The above impression and plan of care have been discussed and directed by signing physician. Sakina Varela, nurse practitioner, acting as scribe for signing physician.
--- NOTE | 2017-06-21 12:26 | P.PN ---
Subjective Principal diagnosis: Atrial fibrillation This is a pleasant 81-year-old female who follows regularly with Dr. Murdock in the office. She has a known history of hypertension, prior pulmonary embolism, prior DVT, rheumatoid arthritis, Sjogren's syndrome, frequent bladder infections, paroxysmal atrial fibrillation on Eliquis for anticoagulation, coronary artery disease with prior stent placement. Patient also has a chronic wound on her right lower extremity for which she goes to the wound clinic and sees Dr. Alcaraz Echo which was performed in April of this year revealed an ejection fraction of 35-40%. She was admitted at that time with atrial fibrillation with rapid ventricular response at that time it appeared to be new onset for her. She presents to the hospital on this occasion with symptoms of shortness of breath, feeling her heart racing fast, and having episodes of extreme diaphoresis. EKG on presentation here showed atrial fibrillation with a rapid ventricular response, incomplete left bundle branch block pattern and nonspecific ST-T wave changes. Chest x-ray revealed mild fibrotic changes and pleural reaction to the left lung base" changed from prior. Blood pressure on arrival here 148/70 with a heart rate that went up into the 150s, 99% on 2 L. CBC normal. Potassium on admission 5.8, 4.5 this morning. BUN 22, creatinine 0.7. Troponins negative 2. BNP level 3400, troponin 0.012. TSH normal. This morning she continues to be in atrial fibrillation, heart rate in the 90s, on a Cardizem drip at 5. 06/21/2017 Patient is seen and examined this morning, continues to be in atrial fibrillation. Blood pressure 114/60 heart rate in the low 100s. CBC normal, potassium 4.2. We will increase the amiodarone to 400 mg daily, increase metoprolol tartrate 200 mg daily. Continue Eliquis 2-1/2 mg one tablet by mouth twice a day. Objective - Vital Signs Vital signs: Vital Signs Temp 97.5 F L 06/21/17 11:53 Pulse 98 06/21/17 11:53 Resp 17 06/21/17 11:53 BP 114/63 06/21/17 11:53 Pulse Ox 94 L 06/21/17 11:53 Intake & Output 06/20/17 06/21/17 06/21/17 18:59 06:59 18:59 Intake Total 420.5 100 600 Output Total 300 Balance 420.5 -200 600 Weight 58.1 kg 59.2 kg Intake: IV 100 0.9 @20mls 100 Intake, IV Titration 60.5 Amount Diltiazem 125 mg In 60.5 Sodium Chloride 0.9% 100 ml @ 5 MG/HR 5 mls/hr IV .Q24H ONE Rx#:[id number] Oral 360 600 Output: Urine 300 Other: Voiding Method Bedside Commode # Voids 1 - Exam PHYSICAL EXAMINATION: HEENT: Head is atraumatic, normocephalic. Pupils equal, round. Neck is supple. There is no elevated jugular venous pressure. HEART EXAMINATION: Heart S1 and S2 irregularly irregular CHEST EXAMINATION: Lungs are clear to auscultation and precussion. No chest wall tenderness is noted on palpation or with deep breathing. ABDOMEN: Soft, nontender. Bowel sounds are heard. No organomegaly noted. EXTREMITIES: 2+ peripheral pulses with no evidence of peripheral edema and no calf tenderness noted. NEUROLOGIC patient is awake, alert and oriented -3. . - Labs CBC & Chem 7: 06/21/17 05:37 06/21/17 05:31 Labs: Abnormal Lab Results - Last 24 Hours (Table) 06/21/17 Range/Units 05:31 Total Protein 5.5 L (6.3-8.2) g/dL Albumin 2.9 L (3.5-5.0) g/dL Microbiology - Last 24 Hours (Table) 06/19/17 21:19 Blood Culture - Preliminary Blood No Growth after 24 hours Assessment and Plan Plan: Assessment and plan #1 atrial fibrillation with rapid ventricular response in a patient with known history of paroxysmal atrial fibrillation. #2 hypertension #3 history of prior DVT and pulmonary embolism #4 Sjogren's syndrome #5 rheumatoid arthritis #6 history of recurrent bladder infections #7 known history of coronary artery disease with prior RCA stent #8 hyperlipidemia Plan TSH level has been obtained which came back to be normal. Repeat echocardiogram with Doppler study revealed an ejection fraction of 55-60%. Left atrium severely dilated greater than 40. We will increase the amiodarone 400 mg daily today increased dose of beta ivet. Continue to monitor. DNP note has been reviewed, I agree with a documented findings and plan of care. Patient was seen and examined.
[2017-06-21] MEDS: SPIRONOLACTONE 25 MG TAB PO SCH (13:46)
[2017-06-21] MEDS: AMIODARONE 200 MG TAB PO SCH (13:46)
[2017-06-21] MEDS: MELATONIN 5 MG TABLET PO PRN (21:03)
[2017-06-21] MEDS: CYCLOBENZAPRINE 10 MG TAB PO PRN (21:03)
[2017-06-21] MEDS: ALPRAZolam 0.25 MG TAB PO SCH (21:03)
[2017-06-21] MEDS: PRAVASTATIN SODIUM 20 MG TAB PO SCH (21:04)
[2017-06-21] MEDS: MULTIVITAMINS, THERA 1 EACH TAB PO SCH (21:04)
[2017-06-21] MEDS: MAGNESIUM OXIDE 400 MG TAB PO SCH (21:04)
[2017-06-21] MEDS: DULoxetine HCL 60 MG CAPSULE.DR PO SCH (21:04)
[2017-06-21] MEDS: ASPIRIN 81 MG CHEW PO SCH (21:05)
[2017-06-22] MEDS: PANTOPRAZOLE 40 MG TABLET PO SCH (06:29)
[2017-06-22 07:00] LABS: ALT 29 U/L (9-52); AST 20 U/L (14-36); Alkaline Phosphatase 58 U/L (38-126); Anion Gap 5 mmol/L; Blood Urea Nitrogen 17 mg/dL (7-17); Calcium 9.2 mg/dL (8.4-10.2); Carbon Dioxide 28 mmol/L (22-30); Chloride 104 mmol/L (98-107); Glucose 83 mg/dL (74-99); Non-African American GFR(MDRD) >60 (>60 ml/min/1.73 sqM); Potassium 4.4 mmol/L (3.5-5.1); Sodium 137 mmol/L (137-145); Total Bilirubin 0.4 mg/dL (0.2-1.3); Total Protein 5.3 g/dL (6.3-8.2)
[2017-06-22 07:21] LABS: Basophils # (A) 0.1 k/uL (0-0.2); Basophils % (A) 1 %; CHCM 31.9; Eosinophils # (A) 0.5 k/uL (0-0.7); Eosinophils % (A) 7 %; HCT 38.6 % (34.0-46.0); HDW 2.53; HGB 12.2 gm/dL (11.4-16.0); Luc # (Auto) 0.32; Luc % (Auto) 5; Lymphocytes # (A) 2.1 k/uL (1.0-4.8); Lymphocytes % (A) 30 %; MCHC 31.7 g/dL (31.0-37.0); MCV 91.5 fL (80.0-100.0); Mean Platelet Volume 8.6; Monocytes # (A) 0.6 k/uL (0-1.0); Monocytes % (A) 8 %; Neutrophils # (A) 3.5 k/uL (1.3-7.7); Neutrophils % (A) 50 %; RBC 4.22 m/uL (3.80-5.40); RDW 15.3 % (11.5-15.5); WBC 7.1 k/uL (3.8-10.6)
[2017-06-22] MEDS: LIDOCAINE-PRILOCAINE 2.5-2.5% CREAM 5 GM TUBE TOPICAL SCH ×4 (08:12→22:03)
[2017-06-22] MEDS: cycloSPORINE 0.05% OPHTH 0.4 ML DROPERETTE BOTH EYES SCH ×2 (08:12→22:02)
[2017-06-22] MEDS: AMIODARONE 200 MG TAB PO SCH (08:13)
[2017-06-22] MEDS: APIXABAN 2.5 MG TABLET PO SCH (08:13)
[2017-06-22] MEDS: LORATADINE 10 MG TAB PO SCH ×2 (08:13→22:02)
[2017-06-22] MEDS: FLUTICASONE 50MCG/SPRAY NASAL 16GM EA NOSTRIL SCH (08:24)
[2017-06-22] MEDS: SENNOSIDES-DOCUSATE SODIUM 1 EACH TAB PO SCH (08:25)
--- NOTE | 2017-06-22 08:33 | P.PN ---
Subjective Principal diagnosis: atrial fib, rvr, drug refractory, symptomatic Patient looks comfortable but feels her heart rate tracing. At rest her heart rate is between 100-120 bpm. With a gentle walk up to the telemetry room heart rate reaches up 130 beats a minute. This is despite oral amiodarone 400 mg by mouth daily and she's been on 200 mg by mouth daily for about 3 weeks along with beta blockers. Yesterday she got 200 mg metoprolol XL and prior to that she was 150 mrem by mouth daily she has been anticoagulated with ELIQUIS since May 16 and has been taking ELIQUIS 2.5 mg twice daily. LV function is normal. Electrolytes are normal, TSH is normal On examination heart sounds are tachycardic no murmurs, breath sounds are clear normal no rhonchi no crackles, no JVD, abdomen is soft. She has a leg wound which is healing and the right lower extremity is mildly swollen Review of systems: No fever chills or rigors, no cough, phlegm or expectoration , no nausea, vomiting or diarrhea, no hematuria, dysuria, no musculoskeletal complaints, no strokes or seizures, no skin lesions. Labs were reviewed Impression Persistent atrial fibrillation, symptomatic, with RVR despite high-dose beta blockers and amiodarone Drug refractory Normal TSH Hypertension History of pulmonary embolism Right leg cough wound Suggest increase ELIQUIS 25 mg twice daily. samantha procedure Cardioversion tomorrow IV amiodarone today discussed with the was Hold Toprol-XL tomorrow morning, I will give after the cardioversion depending upon her heart rate Venous Dopplers of the right lower extremity Options include 1. Electrical cardioversion and antiarrhythmic drug therapy with amiodarone for suppression of atrial fibrillation 2. If this fails then permanent pacemaker with AV junction modification will be considered, but her leg wound should be completely healed Objective - Vital Signs Vital signs: Vital Signs Temp 97.1 F L 06/22/17 04:00 Pulse 98 06/22/17 04:00 Resp 16 06/22/17 04:00 BP 122/66 06/22/17 04:00 Pulse Ox 95 06/22/17 04:00 Intake & Output 06/21/17 06/22/17 06/22/17 18:59 06:59 18:59 Intake Total 1580 Output Total 200 Balance 1580 -200 Weight 59.5 kg Intake: Oral 1580 Output: Urine 200 Other: Voiding Method Bedside Commode # Voids 1 - Labs CBC & Chem 7: 06/22/17 05:59 06/22/17 05:59 Labs: Abnormal Lab Results - Last 24 Hours (Table) 06/22/17 Range/Units 05:59 Total Protein 5.3 L (6.3-8.2) g/dL Albumin 2.8 L (3.5-5.0) g/dL Microbiology - Last 24 Hours (Table) 06/19/17 21:19 Blood Culture - Preliminary Blood No Growth after 48 hours
[2017-06-22] MEDS ORDERED: DEXTROSE 5% IN WATER 100 ML with AMIODARONE 150 MG IV ONE (08:37)
[2017-06-22] MEDS ORDERED: METOPROLOL SUCCINATE (ER) 100 MG TAB.ER.24H PO SCH (09:00)
[2017-06-22] MEDS ORDERED: APIXABAN 5 MG TAB PO SCH (09:00)
[2017-06-22] MEDS ORDERED: APIXABAN 2.5 MG TABLET PO ONE (09:00)
--- NOTE | 2017-06-22 09:25 | P.PN ---
Subjective Principal diagnosis: This is a 81-year-old female seen and examined this morning at the bedside by Dr. Brown. The patient was admitted for A. fib with RVR. She remains in afib with a heart rate ranging from 80-130s. The patient is receiving Toprol and Amiodarone per cardiology. The patient states she is feeling her heart race. She is tolerating her diet without nausea or vomiting. She denies chest pain or shortness of breath. Her right leg remains wrapped with gauze as patient on chronic wound to right leg and follows up in the wound care clinic. Objective - Vital Signs Vital signs: Vital Signs Temp 97.1 F L 06/22/17 04:00 Pulse 98 06/22/17 04:00 Resp 16 06/22/17 04:00 BP 122/66 06/22/17 04:00 Pulse Ox 95 06/22/17 04:00 Intake & Output 06/21/17 06/22/17 06/22/17 18:59 06:59 18:59 Intake Total 1580 Output Total 200 Balance 1580 -200 Weight 59.5 kg Intake: Oral 1580 Output: Urine 200 Other: Voiding Method Bedside Commode # Voids 1 - Exam GENERAL: Alert and oriented. Appears in no acute distress. Pleasant and cooperative RESPIRATORY: Lungs clear bilaterally, diminished at bases. No use of accessory muscles. Patient maintaining oxygen saturation greater than 92% on room air. CARDIOVASCULAR: Irregular, tachycardic, slight JVD noted EXTREMITIES: No edema noted. Palpable pedal pulses +2. Chronic wound to right leg wrapped with gauze. ABDOMEN: No distention noted. Abdomen soft and round. Normal active bowel sounds auscultated 4 quadrants. No pain or tenderness noted upon palpation. - Labs CBC & Chem 7: 06/22/17 05:59 06/22/17 05:59 Labs: Abnormal Lab Results - Last 24 Hours (Table) 06/22/17 Range/Units 05:59 Total Protein 5.3 L (6.3-8.2) g/dL Albumin 2.8 L (3.5-5.0) g/dL Microbiology - Last 24 Hours (Table) 06/19/17 21:19 Blood Culture - Preliminary Blood No Growth after 48 hours Assessment and Plan Plan: ASSESSMENT: 1. Atrial fibrillation with rapid ventricular response, present on admission 2. Hyperkalemia, present on admission, resolved 3. 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 History of coronary artery disease with stent placement PLAN: -Cardiology on consult and appreciate input and recommendations. -Digoxin and Cardizem drip have been discontinued per cardiology -Continue PO amiodarone per cardiology recommendations -Continue metoprolol per cardiology recommendations -GI prophylaxis: Patient receiving Protonix -DVT prophylaxis: Patient on Eliquis due to A. fib -Continue to monitor vital signs and address as appropriate -Monitor labs -Patient to undergo cardioversion tomorrow per cardiology. Per cardiology notes , patient to be placed on IV amio today and hold Toprol XL tomorrow morning The above impression and plan of care have been discussed and directed by signing physician. Sakina Varela, nurse practitioner, acting as scribe for signing physician.
[2017-06-22] MEDS: SPIRONOLACTONE 25 MG TAB PO SCH (11:36)
[2017-06-22] MEDS: AMIODARONE 450 MG in DEXTROSE 5% IN WATER 250 ML IV SCH ×4 (11:37→20:25)
[2017-06-22] MEDS: APIXABAN 5 MG TAB PO SCH (22:02)
[2017-06-22] MEDS: MULTIVITAMINS, THERA 1 EACH TAB PO SCH (22:02)
[2017-06-22] MEDS: ASPIRIN 81 MG CHEW PO SCH (22:02)
[2017-06-22] MEDS: MAGNESIUM OXIDE 400 MG TAB PO SCH (22:02)
[2017-06-22] MEDS: PRAVASTATIN SODIUM 20 MG TAB PO SCH (22:02)
[2017-06-22] MEDS: DULoxetine HCL 60 MG CAPSULE.DR PO SCH (22:02)
[2017-06-22] MEDS: ALPRAZolam 0.25 MG TAB PO SCH (22:03)
[2017-06-23] MEDS: AMIODARONE 450 MG in DEXTROSE 5% IN WATER 250 ML IV SCH ×4 (02:10→10:53)
[2017-06-23] MEDS: APIXABAN 5 MG TAB PO SCH ×2 (05:57→22:05)
[2017-06-23 06:29] LABS: CH 29.1; HCT 38.5 % (34.0-46.0); HDW 2.56; HGB 12.1 gm/dL (11.4-16.0); MCH 28.7 pg (25.0-35.0); MCHC 31.4 g/dL (31.0-37.0); MCV 91.5 fL (80.0-100.0); Mean Platelet Volume 9.1; RDW 15.3 % (11.5-15.5); WBC 8.2 k/uL (3.8-10.6)
[2017-06-23 06:56] LABS: ALT 34 U/L (9-52); AST 23 U/L (14-36); Alkaline Phosphatase 62 U/L (38-126); Anion Gap 6 mmol/L; Blood Urea Nitrogen 17 mg/dL (7-17); Calcium 9.2 mg/dL (8.4-10.2); Carbon Dioxide 29 mmol/L (22-30); Chloride 102 mmol/L (98-107); Glucose 84 mg/dL (74-99); Non-African American GFR(MDRD) >60 (>60 ml/min/1.73 sqM); Potassium 4.5 mmol/L (3.5-5.1); Sodium 137 mmol/L (137-145); Total Bilirubin 0.3 mg/dL (0.2-1.3); Total Protein 5.8 g/dL (6.3-8.2)
[2017-06-23] MEDS ORDERED: PROPOFOL 10 MG/ML 20 ML VIAL IV ONE (08:11)
[2017-06-23] MEDS ORDERED: IV FLUID CONTINUATION 1,000 ML IV ONE (08:24)
--- NOTE | 2017-06-23 08:46 | P.PCN ---
Preoperative Diagnosis: Procedure Electrical cardioversion for persistent atrial fibrillation with RVR Indication for the procedure Persistent symptomatic atrial fibrillation with a rapid ventricular response unresponsive to several weeks of amiodarone both IV and oral Procedure details 150 J biphasic shock was successfully cardioverted to sinus rhythm Plan Amiodarone 400 mg for 2 weeks Reduced 200 mg by mouth thereafter After about 3 months, reduce amiodarone to to 100 mg by mouth daily Continue beta blockers Continue ELIQUIS 5 mg twice daily Postoperative Diagnosis: Procedure(s) Performed: Implants: Indications for Procedure: Operative Findings: Description of Procedure:
[2017-06-23] MEDS: LIDOCAINE-PRILOCAINE 2.5-2.5% CREAM 5 GM TUBE TOPICAL SCH ×4 (08:57→22:07)
--- NOTE | 2017-06-23 09:04 | P.PN ---
Subjective Principal diagnosis: This is a 81-year-old female seen and examined this morning at the bedside by Dr. Brown. The patient was admitted for A. fib with RVR. She remains in afib with an uncontrolled rate, worse when up and ambulating. The patient is receiving Toprol and Amiodarone per cardiology. She denies chest pain or shortness of breath. Her right leg remains wrapped with gauze as patient on chronic wound to right leg and follows up in the wound care clinic. The patient is currently NPO and is scheduled for a cardioversion today. Objective - Vital Signs Vital signs: Vital Signs Temp 98 F 06/23/17 08:52 Pulse 57 L 06/23/17 08:52 Resp 12 06/23/17 08:52 BP 119/64 06/23/17 08:52 Pulse Ox 99 06/23/17 08:52 Intake & Output 06/22/17 06/23/17 06/23/17 18:59 06:59 18:59 Intake Total 1080 250 Output Total 400 Balance 1080 -150 Weight 60.5 kg Intake: Intake, IV Titration 250 Amount Amiodarone 450 mg In 250 Dextrose 5% in Water 250 ml @ 1 MG/MIN 33.33 mls/ hr IV .[id number] [facility] Rx#: [id number] Oral 1080 Output: Urine 400 Other: Voiding Method Toilet Toilet Bedside Commode Bedside Commode # Voids 200 1 # Bowel Movements 1 - Exam GENERAL: Alert and oriented. Appears in no acute distress. Pleasant and cooperative RESPIRATORY: Lungs clear bilaterally, diminished at bases. No use of accessory muscles. Patient maintaining oxygen saturation greater than 92% on room air. CARDIOVASCULAR: Irregular, tachycardic, slight JVD noted EXTREMITIES: No edema noted. Palpable pedal pulses +2. Chronic wound to right leg wrapped with gauze. ABDOMEN: No distention noted. Abdomen soft and round. Normal active bowel sounds auscultated 4 quadrants. No pain or tenderness noted upon palpation. - Labs CBC & Chem 7: 06/23/17 06:16 06/23/17 06:16 Labs: Abnormal Lab Results - Last 24 Hours (Table) 06/23/17 Range/Units 06:16 Total Protein 5.8 L (6.3-8.2) g/dL Albumin 3.1 L (3.5-5.0) g/dL Microbiology - Last 24 Hours (Table) 06/19/17 21:19 Blood Culture - Preliminary Blood No Growth after 72 hours Assessment and Plan Plan: ASSESSMENT: 1. Atrial fibrillation with rapid ventricular response, present on admission 2. Hyperkalemia, present on admission, resolved 3. 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 History of coronary artery disease with stent placement PLAN: -Patient to have cardioversion today per cardiology. -Cardiology on consult and appreciate input and recommendations. -Digoxin and Cardizem drip have been discontinued per cardiology -Continue PO amiodarone per cardiology recommendations -Continue metoprolol per cardiology recommendations -GI prophylaxis: Patient receiving Protonix -DVT prophylaxis: Patient on Eliquis due to A. fib -Continue to monitor vital signs and address as appropriate -Monitor labs The above impression and plan of care have been discussed and directed by signing physician. Sakina Varela, nurse practitioner, acting as scribe for signing physician.
[2017-06-23] MEDS: cycloSPORINE 0.05% OPHTH 0.4 ML DROPERETTE BOTH EYES SCH ×2 (11:47→22:05)
[2017-06-23] MEDS: LORATADINE 10 MG TAB PO SCH ×2 (11:47→22:06)
[2017-06-23] MEDS: SENNOSIDES-DOCUSATE SODIUM 1 EACH TAB PO SCH (11:47)
[2017-06-23] MEDS: SPIRONOLACTONE 25 MG TAB PO SCH (11:48)
[2017-06-23] MEDS: METOPROLOL SUCCINATE (ER) 50 MG TAB.ER.24H PO SCH (11:48)
[2017-06-23] MEDS: PANTOPRAZOLE 40 MG TABLET PO SCH (11:48)
[2017-06-23] MEDS: FLUTICASONE 50MCG/SPRAY NASAL 16GM EA NOSTRIL SCH (11:49)
[2017-06-23] MEDS: AMIODARONE 200 MG TAB PO SCH (11:49)
[2017-06-23 14:34] VITALS: BMI 25.2
[2017-06-23] MEDS: ASPIRIN 81 MG CHEW PO SCH (22:05)
[2017-06-23] MEDS: DULoxetine HCL 60 MG CAPSULE.DR PO SCH (22:05)
[2017-06-23] MEDS: ALPRAZolam 0.25 MG TAB PO SCH (22:05)
[2017-06-23] MEDS: PRAVASTATIN SODIUM 20 MG TAB PO SCH (22:05)
[2017-06-23] MEDS: MULTIVITAMINS, THERA 1 EACH TAB PO SCH (22:05)
[2017-06-23] MEDS: MAGNESIUM OXIDE 400 MG TAB PO SCH (22:05)
[2017-06-24] MEDS: PANTOPRAZOLE 40 MG TABLET PO SCH (06:51)
[2017-06-24] MEDS: LIDOCAINE-PRILOCAINE 2.5-2.5% CREAM 5 GM TUBE TOPICAL SCH ×2 (08:47→11:23)
[2017-06-24] MEDS: SENNOSIDES-DOCUSATE SODIUM 1 EACH TAB PO SCH (08:47)
[2017-06-24] MEDS: cycloSPORINE 0.05% OPHTH 0.4 ML DROPERETTE BOTH EYES SCH (08:48)
[2017-06-24] MEDS: FLUTICASONE 50MCG/SPRAY NASAL 16GM EA NOSTRIL SCH (08:48)
[2017-06-24] MEDS: SPIRONOLACTONE 25 MG TAB PO SCH (08:48)
[2017-06-24] MEDS: AMIODARONE 200 MG TAB PO SCH (08:49)
[2017-06-24] MEDS: APIXABAN 5 MG TAB PO SCH (08:49)
[2017-06-24] MEDS: METOPROLOL SUCCINATE (ER) 50 MG TAB.ER.24H PO SCH (08:49)
[2017-06-24] MEDS: LORATADINE 10 MG TAB PO SCH (08:49)
[2017-06-24 08:54] VITALS: RESP 16
--- NOTE | 2017-06-24 08:56 | P.PN ---
Progress Note - Text Patient is doing well. She is lying comfortably in bed. On telemetry she is in sinus rhythm. She is breathing comfortably. She denies any chest discomfort or shortness of breath. She's afebrile 96.6F him a pulse rate in the 60s respirations normal or pressure 118/57 mmHg and heart sounds S1 and S2 are normal no murmurs no gallops. Breath sounds are clear no rhonchi no crackles Impression Symptomatic atrial fibrillation with RVR on amiodarone status post electrical cardioversion Beta ivet dose was reduced yesterday to 50 mg by mouth daily Dose of ELIQUIS has been increased to 5 mg twice daily Plan Amiodarone 400 mg for 2 weeks then 200 mg thereafter Toprol-XL 100 mg by mouth daily in the morning ELIQUIS 5 mg twice daily Hold aspirin Hold losartan Continue spironolactone 25 g by mouth daily Continue Pravachol 20 mg daily at bedtime She has a follow-up arranged for a July 05 in the office
[2017-06-24 11:23] VITALS: BP 122/67; PULSE 63; TEMP 97.4
[2017-06-24 11:38] LABS: Glucose,Whole Blood 96 mg/dL (75-99)
--- NOTE | 2017-06-24 19:35 | P.DS ---
Providers Date of admission: 06/19/17 22:56 Attending physician: Cirilo Brown Consults: 06/19/17 22:58 Consult Physician Urgent Consulting Provider: Ana Patrick Consult Reason/Comments: a-fib with rvr Do you want consulting provider notified?: Yes Primary care physician: Cirilo Brown [place] [facility] Course: admitted to the hospital with the atrial fibrillation with rapid ventricular rate. Patient was on a rate control medication at home. Patient was initiated on amiodarone. The patient also underwent a cardioversion on this admission Patient's heart rate was better controlled patient is currently on a tapering dose of amiodarone per protocol On the day of discharge patient was able to family without any electric lab values on telemetry patient was not having any complaints of chest pain difficulty breathing nausea vomiting diarrhea Anticoagulation Eliquis Medications include amiodarone taper to continue 200 mg at 10 and a marked Metoprolol to continue home dose, this is different from initial discharge patient has metoprolol succinate 100 mg which is to be continued this was verbalized to the patient and the discharge plan was changed Physical exam Gen. appearance oriented 3 in no distress Neck is supple no JVD Lungs good air entry clear to auscultation no rhonchi or wheezing Heart S1-S2 heard regular rate and rhythm no murmurs appreciated Abdomen is soft nontender no organomegaly bowel sounds are intact Neurologically cranial nerves II-12 grossly intact no focal motor or sensory deficits noted Skin no abnormalities appreciated Patient Condition at Discharge: Fair Plan - Discharge Summary New Discharge Prescriptions: New Amiodarone [Cordarone] 400 mg PO DAILY tab Metoprolol Succinate (ER) [Toprol XL] 50 mg PO DAILY tab Continue Cyclobenzaprine [Flexeril] 10 mg PO BID PRN PRN Reason: Spasms/Pain cycloSPORINE 0.05% OPHTH SOLN [Restasis] 1 drop BOTH EYES BID Furosemide [Lasix] 40 mg PO DAILY PRN PRN Reason: Edema Loratadine [Claritin] 10 mg PO BID ALPRAZolam [Xanax] 0.25 mg PO HS Pravastatin Sodium [Pravachol] 20 mg PO HS Mag Carb/Aluminum Hydrox/Algin [Gaviscon Liquid] 30 ml PO QID PRN PRN Reason: Indigestion Melatonin 10 mg PO HS PRN PRN Reason: Insomnia Sennosides-Docusate Sodium [Senokot-S] 3 tab PO QAM Albuterol Sulfate [Proair Hfa] 2 puff INHALATION RT-QID PRN PRN Reason: Dyspnea Acetaminophen [Tylenol Arthritis 8-hr] 1,300 mg PO BID Cranberry Fruit Extract [Theracran] 650 mg PO DAILY Dexamethasone [Decadron Intensol Oral Solution] 0.5 mg MUCOUS MEM TID PRN PRN Reason: Sjogren's Syndrome DULoxetine HCL [Cymbalta] 60 mg PO HS fentaNYL 50MCG/HR PATCH [Duragesic 50MCG/HR] 50 mcg TRANSDERM Q48H Fluticasone Nasal [place] [Flonase Nasal [place]] 2 spr EA NOSTRIL DAILY Lysine [l-Lysine] 1,000 mg PO TID Multivitamins, Thera [Multivitamin (formulary)] 1 tab PO HS Pantoprazole Sodium [Protonix] 40 mg PO QAM Lidocaine-Prilocaine Cream [Emla Cream 2.5%/2.5%] 1 applic TOPICAL QID Apixaban [Eliquis] 2.5 mg PO BID tab Spironolactone [Aldactone] 25 mg PO DAILY@1200 Magnesium 400 mg PO HS Discontinued Aspirin EC [Ecotrin Low Dose] 81 mg PO HS Biotin 5 mg PO DAILY Losartan Potassium 50 mg PO HS Metoprolol Succinate (ER) [Toprol XL] 100 mg PO DAILY #30 tab Amiodarone [Cordarone] 200 mg PO HS Fish Oil/Dha/Epa [Fish Oil 1,200 mg Fish Oil] 1 cap PO HS Discharge Medication List ALPRAZolam [Xanax] 0.25 mg PO HS 04/30/14 [History] Cyclobenzaprine [Flexeril] 10 mg PO BID PRN 04/30/14 [History] Furosemide [Lasix] 40 mg PO DAILY PRN 04/30/14 [History] Loratadine [Claritin] 10 mg PO BID 04/30/14 [History] Pravastatin Sodium [Pravachol] 20 mg PO HS 04/30/14 [History] cycloSPORINE 0.05% OPHTH SOLN [Restasis] 1 drop BOTH EYES BID 04/30/14 [History] Mag Carb/Aluminum Hydrox/Algin [Gaviscon Liquid] 30 ml PO QID PRN 05/21/14 [ History] Melatonin 10 mg PO HS PRN 08/26/15 [History] Acetaminophen [Tylenol Arthritis 8-hr] 1,300 mg PO BID 01/23/16 [History] Albuterol Sulfate [Proair Hfa] 2 puff INHALATION RT-QID PRN 01/23/16 [History] Sennosides-Docusate Sodium [Senokot-S] 3 tab PO QAM 01/23/16 [History] Cranberry Fruit Extract [Theracran] 650 mg PO DAILY 05/16/17 [History] DULoxetine HCL [Cymbalta] 60 mg PO HS 05/16/17 [History] Dexamethasone [Decadron Intensol Oral Solution] 0.5 mg MUCOUS MEM TID PRN [History] Fluticasone Nasal [place] [Flonase Nasal [place]] 2 spr EA NOSTRIL DAILY 05/16/17 [ History] Lidocaine-Prilocaine Cream [Emla Cream 2.5%/2.5%] 1 applic TOPICAL QID 05/16/17 [History] Lysine [l-Lysine] 1,000 mg PO TID 05/16/17 [History] Multivitamins, Thera [Multivitamin (formulary)] 1 tab PO HS 05/16/17 [History] Pantoprazole Sodium [Protonix] 40 mg PO QAM 05/16/17 [History] fentaNYL 50MCG/HR PATCH [Duragesic 50MCG/HR] 50 mcg TRANSDERM Q48H 05/16/17 [ History] Apixaban [Eliquis] 2.5 mg PO BID tab 05/20/17 [Rx] Magnesium 400 mg PO HS 06/19/17 [History] Spironolactone [Aldactone] 25 mg PO DAILY@1200 06/19/17 [History] Amiodarone [Cordarone] 400 mg PO DAILY tab 06/24/17 [Rx] Metoprolol Succinate (ER) [Toprol XL] 50 mg PO DAILY tab 06/24/17 [Rx] Follow up Appointment(s)/Referral(s): Chintan Ross MD [STAFF PHYSICIAN] - 1 Week (Office closed for the holiday - please call to make appointment) Patient Instructions/Handouts: Atrial Fibrillation (DC) Discharge Disposition: HOME SELF-CARE
== END 2017-06-24 14:49 | disposition home or self-care (01) | DRG 309 ==
LOC: EC 20:23 → 6SEL 22:56
PROVIDERS: ADMIT Family Medicine; ATTEND Family Medicine
PROC: 5A2204Z Restoration of Cardiac Rhythm, Single (ICD-10-PCS; principal; 2017-06-23 08:30)
DX: I48.0 Paroxysmal atrial fibrillation (principal); L97.819 Non-pressure chronic ulcer of other part of right lower leg with unspecified severity; J84.10 Pulmonary fibrosis, unspecified; M35.00 Sjogren syndrome, unspecified; E87.5 Hyperkalemia; I44.7 Left bundle-branch block, unspecified; M06.9 Rheumatoid arthritis, unspecified; I10 Essential (primary) hypertension; I25.10 Atherosclerotic heart disease of native coronary artery without angina pectoris; I25.2 Old myocardial infarction; M79.7 Fibromyalgia; M19.91 Primary osteoarthritis, unspecified site; E78.5 Hyperlipidemia, unspecified; I77.6 Arteritis, unspecified; F41.9 Anxiety disorder, unspecified; Z79.01 Long term (current) use of anticoagulants; Z79.899 Other long term (current) drug therapy; Z87.440 Personal history of urinary (tract) infections; Z95.5 Presence of coronary angioplasty implant and graft; Z86.718 Personal history of other venous thrombosis and embolism; Z86.711 Personal history of pulmonary embolism; Z90.49 Acquired absence of other specified parts of digestive tract; Z87.891 Personal history of nicotine dependence; Z88.1 Allergy status to other antibiotic agents; Z88.5 Allergy status to narcotic agent; Z88.0 Allergy status to penicillin; Z88.2 Allergy status to sulfonamides; Z88.8 Allergy status to other drugs, medicaments and biological substances; Z91.048 Other nonmedicinal substance allergy status
CPT/HCPCS: 36415; 71010; 80048; 80053; 80162; 82550; 82553; 83880; 84443; 84484; 85025; 85027; 85610; 85730; 87040; 92960; 93005; 93306; 94760; 96365; 96366; 99291

== ENCOUNTER 2017-10-31 22:07 | Inpatient (IN) | payer MEDICARE ==
[2017-10-31] MEDS ORDERED: SODIUM CHLORIDE 0.9% 1,000 ML IV STA (22:38)
[2017-10-31] MEDS ORDERED: ACETAMINOPHEN TAB 500 MG TAB PO STA (22:38)
[2017-10-31] MEDS ORDERED: IBUPROFEN 600 MG TAB PO STA (22:38)
--- NOTE | 2017-10-31 23:00 | ED ---
General Adult HPI - General Chief complaint: Altered Mental Status Stated complaint: nausea/weakness/fever Time Seen by Provider: 10/31/17 22:37 Source: patient, family, RN notes reviewed, old records reviewed Mode of arrival: wheelchair - History of Present Illness Initial comments: This is a 82-year-old female to the ER for evaluation. This patient is safe for evaluation regarding this to altered mental state. Positive shortness of breath positive fever. Family states patient started acting appropriate. Patient does have cough and congestion. Known fever. Patient states she does not feel well. Patient's recent hospitalization was back in June. No other recent sick contacts or travel history - Related Data Home Medications Medication Instructions Recorded Confirmed ALPRAZolam [Xanax] 0.25 mg PO HS 04/30/14 10/31/17 Cyclobenzaprine [Flexeril] 10 mg PO HS PRN 04/30/14 10/31/17 Loratadine [Claritin] 10 mg PO BID 04/30/14 10/31/17 Pravastatin Sodium [Pravachol] 20 mg PO HS 04/30/14 10/31/17 cycloSPORINE 0.05% OPHTH SOLN 1 drop BOTH EYES BID 04/30/14 10/31/17 [Restasis] Mag Carb/Aluminum Hydrox/Algin 30 ml PO QID PRN 05/21/14 10/31/17 [Gaviscon Liquid] Melatonin 10 mg PO HS PRN 08/26/15 10/31/17 Acetaminophen [Tylenol Arthritis 1,300 mg PO BID 01/23/16 10/31/17 8-hr] Albuterol Sulfate [Proair Hfa] 2 puff INHALATION RT-QID PRN 01/23/16 10/31/17 Sennosides-Docusate Sodium 3 tab PO QAM 01/23/16 10/31/17 [Senokot-S] Cranberry Fruit Extract [Theracran] 650 mg PO HS 05/16/17 10/31/17 DULoxetine HCL [Cymbalta] 60 mg PO HS 05/16/17 10/31/17 Dexamethasone [Decadron Intensol 0.5 mg MUCOUS MEM TID PRN 05/16/17 10/31/17 Oral Solution] Fluticasone Nasal [place] [Flonase 2 spr EA NOSTRIL DAILY 05/16/17 10/31/17 Nasal [place]] Lidocaine-Prilocaine Cream [Emla 1 applic TOPICAL QID PRN 05/16/17 10/31/17 Cream 2.5%/2.5%] Lysine [l-Lysine] 1,000 mg PO TID 05/16/17 10/31/17 Multivitamins, Thera [Multivitamin 1 tab PO HS 05/16/17 10/31/17 (formulary)] Pantoprazole Sodium [Protonix] 40 mg PO DAILY 05/16/17 10/31/17 Spironolactone [Aldactone] 25 mg PO DAILY@1200 06/19/17 10/31/17 Amiodarone [Cordarone] 200 mg PO HS 10/31/17 10/31/17 Biotin 5,000 mcg PO DAILY 10/31/17 10/31/17 Fish Oil/Dha/Epa [Fish Oil 1,200 1 cap PO HS 10/31/17 10/31/17 mg Fish Oil] Methadone [Dolophine] 5 mg PO BID 10/31/17 10/31/17 Metoprolol Succinate [Toprol XL] 100 mg PO HS 10/31/17 10/31/17 Previous Rx's Medication Instructions Recorded Apixaban [Eliquis] 2.5 mg PO BID tab 05/20/17 Allergies Allergy/AdvReac Type Severity Reaction Status Date / Time levofloxacin [From Levaquin] Allergy Unknown Verified 10/31/17 23:00 morphine Allergy Itching Verified 10/31/17 23:00 nickel Allergy REDNESS OF Verified 10/31/17 23:00 SKIN AND BLISTERING oxycodone HCl [From Percodan] Allergy Itching Verified 10/31/17 23:00 oxycodone terephthalate Allergy Itching Verified 10/31/17 23:00 [From Percodan] amoxicillin [Amoxicillin] AdvReac Diarrhea Verified 10/31/17 23:00 calcium carbonate AdvReac Rapid Verified 10/31/17 23:00 [From Salagen] Heart Rate cephalexin monohydrate AdvReac Unknown Verified 10/31/17 23:00 [From Keflex] codeine AdvReac Nausea & Verified 10/31/17 23:00 Vomiting magnesium [From Salagen] AdvReac Rapid Verified 10/31/17 23:00 Heart Rate methotrexate AdvReac NERVE Verified 10/31/17 23:00 DAMAGE TO HANDS AND FEET pilocarpine HCl AdvReac Rapid Verified 10/31/17 23:00 [From Salagen] Heart Rate pseudoephedrine HCl AdvReac Nausea Verified 10/31/17 23:00 [From Sudafed] Sulfa (Sulfonamide AdvReac Nausea & Verified 10/31/17 23:00 Antibiotics) Vomiting valacyclovir HCl AdvReac Unknown Verified 10/31/17 23:00 [From Valtrex] Review of Systems ROS Statement: Those systems with pertinent positive or pertinent negative responses have been documented in the HPI. ROS Other: All systems not noted in ROS Statement are negative. Past Medical History Past Medical History: Fibromyalgia, Hypertension, Myocardial Infarction ([place]), Osteoarthritis (OA), Pneumonia, Pulmonary Embolus (PE), Rheumatoid Arthritis (RA ), Skin Disorder Additional Past Medical History / Comment(s): Hx of frequent bladder infections , sjogren's syndrome, bursitis, vasculitis, R leg calf wound, allergies, silent mi."superficial blood clot rt leg". Last Myocardial Infarction Date:: 2002? History of Any Multi-Drug Resistant Organisms: None Reported Past Surgical History: Adenoidectomy, Appendectomy, Back Surgery, Bladder Surgery, Cholecystectomy, Heart Catheterization With Stent, Tonsillectomy Additional Past Surgical History / Comment(s): eligio hand sx trigger finger sx Past Anesthesia/Blood Transfusion Reactions: No Reported Reaction Additional Past Anesthesia/Blood Transfusion Reaction / Comment(s): clausterphobia Date of Last Stent Placement:: 2008 Past Psychological History: Anxiety Smoking Status: Former smoker Past Alcohol Use History: Occasional Past Drug Use History: None Reported - Past Family History Father Family Medical History: Cancer Additional Family Medical History / Comment(s): colon cancer 40s Mother Family Medical History: Cancer General Exam General appearance: alert, in no apparent distress Head exam: Present: atraumatic, normocephalic, normal inspection Eye exam: Present: normal appearance, PERRL, EOMI. Absent: scleral icterus, conjunctival injection, periorbital swelling ENT exam: Present: normal exam, mucous membranes moist Neck exam: Present: normal inspection. Absent: tenderness, meningismus, lymphadenopathy Respiratory exam: Present: normal lung sounds bilaterally. Absent: respiratory distress, wheezes, rales, rhonchi, stridor Cardiovascular Exam: Present: regular rate, normal rhythm, normal heart sounds. Absent: systolic murmur, diastolic murmur, rubs, gallop, clicks GI/Abdominal exam: Present: soft, normal bowel sounds. Absent: distended, tenderness, guarding, rebound, rigid Extremities exam: Present: normal inspection, full ROM, normal capillary refill. Absent: tenderness, pedal edema, joint swelling, calf tenderness Back exam: Present: normal inspection Neurological exam: Present: alert, oriented X3, CN II-XII intact Psychiatric exam: Present: normal affect, normal mood Skin exam: Present: warm, dry, intact, normal color. Absent: rash Course Vital Signs 10/31/17 11/01/17 22:13 00:06 Temperature 101.8 F H Pulse Rate 93 82 Respiratory 18 18 Rate Blood Pressure 144/91 124/58 O2 Sat by Pulse 93 L 96 Oximetry EKG Findings - EKG Comments: EKG Findings:: EKG shows normal sinus rhythm rate of 85, pO2 of 50, QRS 126, QTc 471 Medical Decision Making - Medical Decision Making 82 female to ER for evaluation of fever shortness of breath cough congestion positive fever will be for symptomatic therapy, cardiopulmonary resuscitation and continue monitoring - Lab Data Result diagrams: 10/31/17 22:55 10/31/17 22:55 Lab Results 10/31/17 10/31/17 10/31/17 Range/Units 22:55 22:55 22:55 WBC 19.0 H (3.8-10.6) k/uL RBC 3.89 (3.80-5.40) m/uL Hgb 11.6 (11.4-16.0) gm/dL Hct 37.5 (34.0-46.0) % MCV 96.6 (80.0-100.0) fL MCH 29.9 (25.0-35.0) pg MCHC 30.9 L (31.0-37.0) g/dL RDW 14.3 (11.5-15.5) % Plt Count 228 (150-450) k/uL Neutrophils % 90 % Lymphocytes % 4 % Monocytes % 4 % Eosinophils % 0 % Basophils % 0 % Neutrophils # 17.2 H (1.3-7.7) k/uL Lymphocytes # 0.8 L (1.0-4.8) k/uL Monocytes # 0.7 (0-1.0) k/uL Eosinophils # 0.1 (0-0.7) k/uL Basophils # 0.0 (0-0.2) k/uL Hypochromasia Slight PT (9.0-12.0) sec INR (<1.2) APTT (22.0-30.0) sec Sodium 139 (137-145) mmol/L Potassium 4.4 (3.5-5.1) mmol/L Chloride 101 (98-107) mmol/L Carbon Dioxide 26 (22-30) mmol/L Anion Gap 12 mmol/L BUN 31 H (7-17) mg/dL Creatinine 0.80 (0.52-1.04) mg/dL Est GFR (MDRD) Af Amer >60 (>60 ml/min/1.73 sqM) Est GFR (MDRD) Non-Af >60 (>60 ml/min/1.73 sqM) Glucose 131 H (74-99) mg/dL Plasma Lactic Acid Carl (0.7-2.0) mmol/L Calcium 9.4 (8.4-10.2) mg/dL Phosphorus 2.8 (2.5-4.5) mg/dL Magnesium 1.9 (1.6-2.3) mg/dL Total Bilirubin 0.7 (0.2-1.3) mg/dL AST 19 (14-36) U/L ALT 28 (9-52) U/L Alkaline Phosphatase 91 (38-126) U/L Total Creatine Kinase 21 L (30-135) U/L CK-MB (CK-2) <0.2 (0.0-2.4) ng/mL CK-MB (CK-2) Rel Index Troponin I <0.012 (0.000-0.034) ng/mL Total Protein 7.0 (6.3-8.2) g/dL Albumin 3.8 (3.5-5.0) g/dL Influenza Type A RNA (Not Detectd) Influenza Type B (PCR) (Not Detectd) 10/31/17 10/31/17 10/31/17 Range/Units 22:55 22:55 22:55 WBC (3.8-10.6) k/uL RBC (3.80-5.40) m/uL Hgb (11.4-16.0) gm/dL Hct (34.0-46.0) % MCV (80.0-100.0) fL MCH (25.0-35.0) pg MCHC (31.0-37.0) g/dL RDW (11.5-15.5) % Plt Count (150-450) k/uL Neutrophils % % Lymphocytes % % Monocytes % % Eosinophils % % Basophils % % Neutrophils # (1.3-7.7) k/uL Lymphocytes # (1.0-4.8) k/uL Monocytes # (0-1.0) k/uL Eosinophils # (0-0.7) k/uL Basophils # (0-0.2) k/uL Hypochromasia PT 11.0 (9.0-12.0) sec INR 1.1 (<1.2) APTT 28.8 (22.0-30.0) sec Sodium (137-145) mmol/L Potassium (3.5-5.1) mmol/L Chloride (98-107) mmol/L Carbon Dioxide (22-30) mmol/L Anion Gap mmol/L BUN (7-17) mg/dL Creatinine (0.52-1.04) mg/dL Est GFR (MDRD) Af Amer (>60 ml/min/1.73 sqM) Est GFR (MDRD) Non-Af (>60 ml/min/1.73 sqM) Glucose (74-99) mg/dL Plasma Lactic Acid Carl 1.6 (0.7-2.0) mmol/L Calcium (8.4-10.2) mg/dL Phosphorus (2.5-4.5) mg/dL Magnesium (1.6-2.3) mg/dL Total Bilirubin (0.2-1.3) mg/dL AST (14-36) U/L ALT (9-52) U/L Alkaline Phosphatase (38-126) U/L Total Creatine Kinase (30-135) U/L CK-MB (CK-2) (0.0-2.4) ng/mL CK-MB (CK-2) Rel Index Troponin I (0.000-0.034) ng/mL Total Protein (6.3-8.2) g/dL Albumin (3.5-5.0) g/dL Influenza Type A RNA Not Detected (Not Detectd) Influenza Type B (PCR) Not Detected (Not Detectd) - Radiology Data Radiology results: report reviewed (Chest x-ray positive for pneumonia), image reviewed Disposition Clinical Impression: Febrile illness, acute, Community acquired pneumonia Disposition: ADMITTED IP TO THIS HOSP Condition: Fair
[2017-10-31 23:04] LABS: Basophils % (A) 0 %; Eosinophils # (A) 0.1 k/uL (0-0.7); Eosinophils % (A) 0 %; HCT 37.5 % (34.0-46.0); HGB 11.6 gm/dL (11.4-16.0); Hypochromasia Slight; Lymphocytes # (A) 0.8 k/uL (1.0-4.8); Lymphocytes % (A) 4 %; MCH 29.9 pg (25.0-35.0); MCHC 30.9 g/dL (31.0-37.0); MCV 96.6 fL (80.0-100.0); Monocytes # (A) 0.7 k/uL (0-1.0); Monocytes % (A) 4 %; Neutrophils # (A) 17.2 k/uL (1.3-7.7); Neutrophils % (A) 90 %; Platelet Count 228 k/uL (150-450); RBC 3.89 m/uL (3.80-5.40); RDW 14.3 % (11.5-15.5)
[2017-10-31 23:18] LABS: ALT 28 U/L (9-52); AST 19 U/L (14-36); Albumin 3.8 g/dL (3.5-5.0); Alkaline Phosphatase 91 U/L (38-126); Anion Gap 12 mmol/L; Blood Urea Nitrogen 31 mg/dL (7-17); Calcium 9.4 mg/dL (8.4-10.2); Carbon Dioxide 26 mmol/L (22-30); Chloride 101 mmol/L (98-107); Glucose 131 mg/dL (74-99); Magnesium 1.9 mg/dL (1.6-2.3); Phosphorus 2.8 mg/dL (2.5-4.5); Sodium 139 mmol/L (137-145); Total Bilirubin 0.7 mg/dL (0.2-1.3)
[2017-10-31 23:19] LABS: Potassium 4.4 mmol/L (3.5-5.1)
[2017-10-31 23:26] LABS: Creatine Kinase 21 U/L (30-135)
[2017-10-31 23:28] LABS: INR 1.1 (<1.2); Partial Thromboplastin Time 28.8 sec (22.0-30.0)
--- NOTE | 2017-10-31 23:35 | XR ---
EXAMINATION TYPE: XR chest 2V DATE OF EXAM: 10/31/2017 COMPARISON: 06/19/2017 HISTORY: Weakness and fever TECHNIQUE: Frontal and lateral views of the chest are obtained. FINDINGS: There is general coarsening of interstitial pulmonary markings. There is some coalescent i nfiltrate in the right lower lobe. There is no gross heart failure. I see no definite pleural effusio n. There are chest leads. Thoracic aorta is atheromatous. IMPRESSION: Pulmonary interstitial fibrosis. There is new right lower lobe pneumonia compared to las t exam. No gross heart failure.
[2017-10-31 23:37] LABS: Creatine Kinase MB <0.2 ng/mL (0.0-2.4); Troponin I <0.012 ng/mL (0.000-0.034)
[2017-10-31] MEDS ORDERED: AZITHROMYCIN 500 MG in SODIUM CHLORIDE 0.9% 250 ML IVPB STA (23:38)
[2017-10-31] MEDS ORDERED: PNEUMONIA PROTOCOL UTILIZED 1 EACH MISC PO PRN (23:38)
[2017-10-31] MEDS ORDERED: TIGECYCLINE 100 MG in SODIUM CHLORIDE 0.9% 100 ML IVPB STA (23:39)
[2017-11-01] MEDS: SODIUM CHLORIDE 0.9% 1,000 ML IV SCH ×3 (00:22→20:36)
[2017-11-01 00:28] LABS: Appearance,Urine Cloudy (Clear); Bilirubin,Urine Negative (Negative); Blood,Urine Negative (Negative); Budding Yeast,Urine Rare /hpf; Color,Urine Yellow; Glucose,Urine (UA) Negative (Negative); Ketones,Urine Negative (Negative); Leukocyte Esterase,Urine Negative (Negative); Mucus,Urine Rare /hpf; Nitrite,Urine Negative (Negative); PH, Urine 5.5 (5.0-8.0); Protein,Urine Trace (Negative); RBC,Urine 1 /hpf (0-5); Specific Gravity,Urine 1.019 (1.001-1.035); Squamous Epithelial Cell,Urine 1 /hpf (0-4); Urobilinogen,Urine <2.0 mg/dL (<2.0); WBC,Urine 1 /hpf (0-5)
[2017-11-01] MEDS: IPRATROPIUM-ALBUTEROL 3 ML NEB INHALATION SCH ×5 (07:42→19:21)
--- NOTE | 2017-11-01 07:54 | XR ---
EXAMINATION TYPE: XR chest 2V DATE OF EXAM: 11/01/2017 COMPARISON: 10/31/2017 HISTORY: Shortness of breath TECHNIQUE: Frontal and lateral views of the chest are obtained. FINDINGS: Scattered senescent parenchymal changes noted. Hyperinflation compatible with COPD. Persistent right lower lobe infiltrate. Heart size is stable. Mediastinal structures are stable and grossly unremarkable. No evidence for hilar prominence. Degenerative changes dorsal spine. IMPRESSION: 1. Persistent right lower lobe pneumonia.
[2017-11-01 08:02] VITALS: RESP 16
[2017-11-01] MEDS ORDERED: CYCLOBENZAPRINE 10 MG TAB PO PRN (08:41)
[2017-11-01] MEDS ORDERED: MELATONIN 5 MG TABLET PO PRN (08:41)
[2017-11-01] MEDS ORDERED: MAG HYDROX/AL HYDROX/SIMETH 30 ML CUP PO PRN (08:41)
[2017-11-01] MEDS ORDERED: LIDOCAINE-PRILOCAINE 2.5-2.5% CREAM 5 GM TUBE TOPICAL PRN (08:41)
[2017-11-01] MEDS ORDERED: ALBUTEROL NEBULIZED 2.5 MG/3 ML INHALATION PRN (08:41)
[2017-11-01] MEDS ORDERED: ENOXAPARIN 40 MG/0.4 ML SYRINGE SQ SCH (09:00)
[2017-11-01] MEDS: APIXABAN 2.5 MG TABLET PO SCH ×2 (09:05→20:37)
[2017-11-01] MEDS: cycloSPORINE 0.05% OPHTH 0.4 ML DROPERETTE BOTH EYES SCH ×2 (09:05→20:37)
[2017-11-01] MEDS: METHADONE 5 MG TAB PO SCH ×2 (09:05→20:35)
[2017-11-01] MEDS: SENNOSIDES-DOCUSATE SODIUM 1 EACH TAB PO SCH (09:05)
[2017-11-01] MEDS: SPIRONOLACTONE 25 MG TAB PO SCH (09:05)
[2017-11-01] MEDS: FLUTICASONE 50MCG/SPRAY NASAL 16GM EA NOSTRIL SCH (09:05)
[2017-11-01] MEDS: PANTOPRAZOLE 40 MG TABLET PO SCH (09:05)
[2017-11-01] MEDS: LORATADINE 10 MG TAB PO SCH (09:05)
[2017-11-01] MEDS ORDERED: TIGECYCLINE 50 MG in SODIUM CHLORIDE 0.9% 50 ML IVPB SCH (10:00)
[2017-11-01] MEDS ORDERED: ACETAMINOPHEN TAB 325 MG TAB PO PRN (11:23)
--- NOTE | 2017-11-01 11:25 | P.HPIM ---
History of Present Illness H&P Date: 11/01/17 Chief Complaint: Altered mental status, fever 82-year-old female who presents to emergency room on 10/31/2017 with a chief complaint of altered mental status per the patient's family. The patient has a poor historian and states she does not recall the events of yesterday but states that she just remembers being very confused. She states her son went to the store and when he returned she was not acting like her usual self and he brought her to the emergency room for further evaluation. It was also noted that the patient had a fever prior to coming to the emergency room. The patient has a history of fibromyalgia, hypertension, myocardial infarction, osteoarthritis, pulmonary embolus, Sjogren syndrome, and vasculitis. She also has a chronic venous wound to her right calf that she states has been there approximately 3 years. She has been following with Dr. Alcaraz on an outpatient basis. She states that her wound appears worse than normal to her. In the emergency room, a chest x-ray was completed which revealed right lower lobe pneumonia. Laboratory results revealed sodium 139, potassium 4.4, BUN 31, creatinine 0.0, W cc 19, hemoglobin 11.6, platelet count 228. Influenza a and B was negative. The patient was started on azithromycin and admitted to the hospital under the care of Dr. Brown. The patient was seen and examined at the bedside on rounds with Dr. Brown. A repeat chest x-ray was performed this morning which again reveals persistent right lower lobe pneumonia. The patient states she has not short of breath at this time. She denies sputum production. She states that she feels like she is back to her baseline neurologically. Spoke with nursing who states her wound to her right lower extremity had evidence of drainage and it was cultured last night. Results are currently pending. She is tolerating a regular diet without nausea or vomiting. She is afebrile at this time with a temperature of 96.9. It is noted her temperature less than in the emergency room was 101.8. Review of Systems GENERAL: Positive for fever. Denies chills. EYES: Denies blurred vision. Denies vision changes. Denies eye pain. EARS, NOSE, MOUTH, & THROAT: Denies headache. Denies sore throat. Denies ear pain. RESPIRATORY: Denies cough. Denies shortness of breath. Denies sputum production. Denies hemoptysis. CARDIOVASCULAR: Denies chest pain or pressure. Denies palpitations. Denies arrhythmias. GASTROINTESTINAL: Denies abdominal pain. Denies diarrhea. Denies constipation. Denies nausea. Denies vomiting. Denies heartburn. Denies blood in the stool. GENITOURINARY: Denies urinary frequency. Denies burning. Denies dysuria. Denies cloudy urine. Denies blood in the urine. MUSCULOSKELETAL: Denies myalgias. Denies joint swelling. Denies decreased range of motion beyond patients baseline. INTEGUMENTARY: Denies pruitis. Denies rash. PSYCHIATRIC: Positive for confusion yesterday. Denies suicidal or homicial ideations. ENDOCRINE: Denies weight change. Denies polydipsia. Denies polyuria. HEMATOLOGIC: Denies bleeding disorders. Past Medical History Past Medical History: Fibromyalgia, Hypertension, Myocardial Infarction ([place]), Osteoarthritis (OA), Pneumonia, Pulmonary Embolus (PE), Rheumatoid Arthritis (RA ), Skin Disorder Additional Past Medical History / Comment(s): Hx of frequent bladder infections , sjogren's syndrome, bursitis, vasculitis, R leg calf wound, allergies, silent mi."superficial blood clot rt leg". Last Myocardial Infarction Date:: 2002? History of Any Multi-Drug Resistant Organisms: None Reported Past Surgical History: Adenoidectomy, Appendectomy, Back Surgery, Bladder Surgery, Cholecystectomy, Heart Catheterization With Stent, Tonsillectomy Additional Past Surgical History / Comment(s): eligio hand sx trigger finger sx Past Anesthesia/Blood Transfusion Reactions: No Reported Reaction Additional Past Anesthesia/Blood Transfusion Reaction / Comment(s): clausterphobia Date of Last Stent Placement:: 2008 Past Psychological History: Anxiety Additional Psychological History / Comment(s): pt lives with daughter satinder in a single story home that has 2 porch steps.1 pet cat. pt is independant but has a cane/walker/bsc if needed.has a cleaning/chore person from [employer] on [employer]. Smoking Status: Former smoker Past Alcohol Use History: Occasional Past Drug Use History: None Reported - Past Family History Father Family Medical History: Cancer Additional Family Medical History / Comment(s): colon cancer 40s Mother Family Medical History: Cancer Medications and Allergies Home Medications Medication Instructions Recorded Confirmed Type ALPRAZolam [Xanax] 0.25 mg PO HS 04/30/14 10/31/17 History Cyclobenzaprine [Flexeril] 10 mg PO HS PRN 04/30/14 10/31/17 History Loratadine [Claritin] 10 mg PO BID 04/30/14 10/31/17 History Pravastatin Sodium [Pravachol] 20 mg PO HS 04/30/14 10/31/17 History cycloSPORINE 0.05% OPHTH SOLN 1 drop BOTH EYES BID 04/30/14 10/31/17 History [Restasis] Mag Carb/Aluminum Hydrox/Algin 30 ml PO QID PRN 05/21/14 10/31/17 History [Gaviscon Liquid] Melatonin 10 mg PO HS PRN 08/26/15 10/31/17 History Acetaminophen [Tylenol Arthritis 1,300 mg PO BID 01/23/16 10/31/17 History 8-hr] Albuterol Sulfate [Proair Hfa] 2 puff INHALATION RT-QID PRN 01/23/16 10/31/17 History Sennosides-Docusate Sodium 3 tab PO QAM 01/23/16 10/31/17 History [Senokot-S] Cranberry Fruit Extract [Theracran] 650 mg PO HS 05/16/17 10/31/17 History DULoxetine HCL [Cymbalta] 60 mg PO HS 05/16/17 10/31/17 History Dexamethasone [Decadron Intensol 0.5 mg MUCOUS MEM TID PRN 05/16/17 10/31/17 History Oral Solution] Fluticasone Nasal [place] [Flonase 2 spr EA NOSTRIL DAILY 05/16/17 10/31/17 History Nasal [place]] Lidocaine-Prilocaine Cream [Emla 1 applic TOPICAL QID PRN 05/16/17 10/31/17 History Cream 2.5%/2.5%] Lysine [l-Lysine] 1,000 mg PO TID 05/16/17 10/31/17 History Multivitamins, Thera [Multivitamin 1 tab PO HS 05/16/17 10/31/17 History (formulary)] Pantoprazole Sodium [Protonix] 40 mg PO DAILY 05/16/17 10/31/17 History Apixaban [Eliquis] 2.5 mg PO BID tab 05/20/17 10/31/17 Rx Spironolactone [Aldactone] 25 mg PO DAILY@1200 06/19/17 10/31/17 History Amiodarone [Cordarone] 200 mg PO HS 10/31/17 10/31/17 History Biotin 5,000 mcg PO DAILY 10/31/17 10/31/17 History Fish Oil/Dha/Epa [Fish Oil 1,200 1 cap PO HS 10/31/17 10/31/17 History mg Fish Oil] Methadone [Dolophine] 5 mg PO BID 10/31/17 10/31/17 History Metoprolol Succinate [Toprol XL] 100 mg PO HS 10/31/17 10/31/17 History Allergies Allergy/AdvReac Type Severity Reaction Status Date / Time levofloxacin [From Levaquin] Allergy Unknown Verified 10/31/17 23:00 morphine Allergy Itching Verified 10/31/17 23:00 nickel Allergy REDNESS OF Verified 10/31/17 23:00 SKIN AND BLISTERING oxycodone HCl [From Percodan] Allergy Itching Verified 10/31/17 23:00 oxycodone terephthalate Allergy Itching Verified 10/31/17 23:00 [From Percodan] amoxicillin [Amoxicillin] AdvReac Diarrhea Verified 10/31/17 23:00 calcium carbonate AdvReac Rapid Verified 10/31/17 23:00 [From Salagen] Heart Rate cephalexin monohydrate AdvReac Unknown Verified 10/31/17 23:00 [From Keflex] codeine AdvReac Nausea & Verified 10/31/17 23:00 Vomiting magnesium [From Salagen] AdvReac Rapid Verified 10/31/17 23:00 Heart Rate methotrexate AdvReac NERVE Verified 10/31/17 23:00 DAMAGE TO HANDS AND FEET pilocarpine HCl AdvReac Rapid Verified 10/31/17 23:00 [From Salagen] Heart Rate pseudoephedrine HCl AdvReac Nausea Verified 10/31/17 23:00 [From Sudafed] Sulfa (Sulfonamide AdvReac Nausea & Verified 10/31/17 23:00 Antibiotics) Vomiting valacyclovir HCl AdvReac Unknown Verified 10/31/17 23:00 [From Valtrex] Physical Exam Vitals: Vital Signs Temp Pulse Pulse Resp BP BP Pulse Ox 11/01/17 09:18 68 11/01/17 09:08 65 01/10/18 07:00 96.9 F L 65 16 118/58 94 L 11/01/17 03:33 97.0 F L 11/01/17 01:00 100.5 F H 76 12 99/55 96 11/01/17 00:26 99.3 F 11/01/17 00:06 82 18 124/58 96 10/31/17 22:13 101.8 F H 93 18 144/91 93 L Intake and Output 10/31/17 11/01/17 11/01/17 22:59 06:59 14:59 Output Total 215 Balance -215 Output: Urine 215 Straight 215 Other: # Voids 0 # Bowel Movements 1 Weight 61.235 kg GENERAL: This is a 82-year-old female in no apparent distress at the time of examination. Pleasant and cooperative. HEENT: Head is atraumatic, normocephalic. Pupils are equal, round, and reactive to light. Sclerae anicteric. Conjunctivae are clear. Mucus membranes of the mouth are moist. Neck is supple. RESPIRATORY: Clear to ausculation. No wheezes, rales, or rhonchi. No use of accessory muscles. Patient maintaining oxygen saturation greater than 92%. No chest wall tenderness is noted on palpation or with deep breathing. CARDIOVASCULAR: Regular rate and rhythm. S1 and S2 noted. No JVD noted. No S3 or S4 noted. GASTROINTESTINAL: No distention noted. Abdomen soft and round. Normal active bowel sounds auscultated x 4 quadrants. No pain or tenderness noted upon palpation. INTEGUMENTARY: No cyanosis. No jaundice. No rashes noted. No cellulitis noted. EXTREMITIES: 2+ peripheral pulses. No evidence of peripheral edema. No calf tenderness noted. NEUROLOGIC: Cranial nerves II-XII intact. PSYCHIATRIC: Awake, alert, and oriented X 3. Appropriate affect. Results CBC & Chem 7: 10/31/17 22:55 10/31/17 22:55 Labs: Abnormal Lab Results - Last 24 Hours (Table) 10/31/17 10/31/17 10/31/17 Range/Units 22:55 22:55 22:55 WBC 19.0 H (3.8-10.6) k/uL MCHC 30.9 L (31.0-37.0) g/dL Neutrophils # 17.2 H (1.3-7.7) k/uL Lymphocytes # 0.8 L (1.0-4.8) k/uL BUN 31 H (7-17) mg/dL Glucose 131 H (74-99) mg/dL Total Creatine Kinase 21 L (30-135) U/L Urine Appearance (Clear) Urine Protein (Negative) Urine Mucus (None) /hpf Urine Yeast (Budding) (None) /hpf 11/01/17 Range/Units 00:04 WBC (3.8-10.6) k/uL MCHC (31.0-37.0) g/dL Neutrophils # (1.3-7.7) k/uL Lymphocytes # (1.0-4.8) k/uL BUN (7-17) mg/dL Glucose (74-99) mg/dL Total Creatine Kinase (30-135) U/L Urine Appearance Cloudy H (Clear) Urine Protein Trace H (Negative) Urine Mucus Rare H (None) /hpf Urine Yeast (Budding) Rare H (None) /hpf Thrombosis Risk Factor Assmnt - Choose All That Apply Any of the Below Risk Factors Present?: Yes Each Factor Represents 1 point: Swollen legs (current) Other Risk Factors: Yes Each Risk Factor Represents 3 Points: Age 75 years or older Other congenital or acquired thrombophilia - If yes, enter type in comment: No Thrombosis Risk Factor Assessment Total Risk Factor Score: 4 Thrombosis Risk Factor Assessment Level: Moderate Risk Assessment and Plan Plan: ASSESSMENT: Community acquired pneumonia, present on admission, sputum culture pending Sepsis with leukocytosis with fever, secondary to above Altered mental status, present on admission, suspect septic encephalopathy Chronic venous ulceration to right lower extremity Urinary retention, requiring straight catheterization History of coronary artery disease with previous myocardial infarction and stent placement Essential hypertension Fibromyalgia History of pulmonary embolus History of osteoarthritis and rheumatoid arthritis Anxiety, unspecified PLAN: -Consult Dr. Alcaraz to assess right vascular wound. Await further recommendations and input -Await wound cultures -Continue azithromycin -Collect sputum culture if possible -Await results of blood cultures -Straight cath x1, bladder scan if no void in 6-8 hours -Home meds as appropriate -Monitor labs -GI prophylaxis: Protonix 40 mg by mouth daily -DVT prophylaxis: Patient takes Eliquis 2.5 mg by mouth twice a day -Monitor vital signs and address as appropriate -Discharge planning: Patient to return home. Currently lives with daughter -Further recommendations pending patient's course Nurse practitioner note has been reviewed by physician. Signing provider agrees with the documented findings, assessment, and plan of care.
[2017-11-01] MEDS ORDERED: DULoxetine HCL 60 MG CAPSULE.DR PO SCH (21:00)
[2017-11-01] MEDS ORDERED: ALPRAZolam 0.25 MG TAB PO SCH (21:00)
[2017-11-01] MEDS ORDERED: PRAVASTATIN SODIUM 20 MG TAB PO SCH (21:00)
[2017-11-01] MEDS ORDERED: MULTIVITAMINS, THERA 1 EACH TAB PO SCH (21:00)
[2017-11-01] MEDS ORDERED: NON-FORMULARY DRUG (Fish Oil/Dha/Epa [Fish Oil 1,200 Mg Fish Oil] 1 CAP) PO SCH (21:00)
[2017-11-01] MEDS ORDERED: AMIODARONE 200 MG TAB PO SCH (21:00)
[2017-11-01] MEDS ORDERED: METOPROLOL SUCCINATE (ER) 100 MG TAB.ER.24H PO SCH (21:00)
--- NOTE | 2017-11-02 06:37 | P.GSCN ---
History of Present Illness Consult date: 11/01/17 Reason for Consult: Right lower extremity wound, treatment recommendations Requesting physician: Cirilo Brown History of present illness: This 82 year old lady who follows with Dr. Cirilo Brown on an outpatient basis and who has a previous medical history of HTN, CHF, asthma, previous tobacco dependance, fibromyalgia, myocardial infarction, osteoarthritis, pulmonary embolism, rheumatoid arthritis, vasculitis, frequent bladder infections, and chronic venous stasis ulcer to her right lower extremity previously treated by Dr. Alcaraz presented to the emergency room with complaints of shortness of breath,fever, cough and congestion. She was admitted for treatment of presumable pneumonia. Dr. Alcaraz was consulted regarding management of her right lower extremity wound. She had seen him previously in the office on October 26 and was instructed to continue treating with dressing changes and mild pressure. She states that the wound is different than when she saw him in the office and that "it has opened back up". Review of Systems 14 point review of systems was completed and was negative except as noted in the HPI. Past Medical History Past Medical History: Fibromyalgia, Hypertension, Myocardial Infarction ([place]), Osteoarthritis (OA), Pneumonia, Pulmonary Embolus (PE), Rheumatoid Arthritis (RA ), Skin Disorder Additional Past Medical History / Comment(s): Hx of frequent bladder infections , sjogren's syndrome, bursitis, vasculitis, R leg calf wound, allergies, silent mi."superficial blood clot rt leg". Last Myocardial Infarction Date:: 2002? History of Any Multi-Drug Resistant Organisms: None Reported Past Surgical History: Adenoidectomy, Appendectomy, Back Surgery, Bladder Surgery, Cholecystectomy, Heart Catheterization With Stent, Tonsillectomy Additional Past Surgical History / Comment(s): eligio hand sx trigger finger sx Past Anesthesia/Blood Transfusion Reactions: No Reported Reaction Additional Past Anesthesia/Blood Transfusion Reaction / Comm: clausterphobia Date of Last Stent Placement:: 2008 Past Psychological History: Anxiety Additional Psychological History / Comment(s): pt lives with daughter satinder in a single story home that has 2 porch steps.1 pet cat. pt is independant but has a cane/walker/bsc if needed.has a cleaning/chore person from [employer] on [address]. Smoking Status: Former smoker Past Alcohol Use History: Occasional Past Drug Use History: None Reported - Past Family History Father Family Medical History: Cancer Additional Family Medical History / Comment(s): colon cancer 40s Mother Family Medical History: Cancer Medications and Allergies Home Medications Medication Instructions Recorded Confirmed Type ALPRAZolam [Xanax] 0.25 mg PO HS 04/30/14 10/31/17 History Cyclobenzaprine [Flexeril] 10 mg PO HS PRN 04/30/14 10/31/17 History Loratadine [Claritin] 10 mg PO BID 04/30/14 10/31/17 History Pravastatin Sodium [Pravachol] 20 mg PO HS 04/30/14 10/31/17 History cycloSPORINE 0.05% OPHTH SOLN 1 drop BOTH EYES BID 04/30/14 10/31/17 History [Restasis] Mag Carb/Aluminum Hydrox/Algin 30 ml PO QID PRN 05/21/14 10/31/17 History [Gaviscon Liquid] Melatonin 10 mg PO HS PRN 08/26/15 10/31/17 History Acetaminophen [Tylenol Arthritis 1,300 mg PO BID 01/23/16 10/31/17 History 8-hr] Albuterol Sulfate [Proair Hfa] 2 puff INHALATION RT-QID PRN 01/23/16 10/31/17 History Sennosides-Docusate Sodium 3 tab PO QAM 01/23/16 10/31/17 History [Senokot-S] Cranberry Fruit Extract [Theracran] 650 mg PO HS 05/16/17 10/31/17 History DULoxetine HCL [Cymbalta] 60 mg PO HS 05/16/17 10/31/17 History Dexamethasone [Decadron Intensol 0.5 mg MUCOUS MEM TID PRN 05/16/17 10/31/17 History Oral Solution] Fluticasone Nasal [place] [Flonase 2 spr EA NOSTRIL DAILY 05/16/17 10/31/17 History Nasal [place]] Lidocaine-Prilocaine Cream [Emla 1 applic TOPICAL QID PRN 05/16/17 10/31/17 History Cream 2.5%/2.5%] Lysine [l-Lysine] 1,000 mg PO TID 05/16/17 10/31/17 History Multivitamins, Thera [Multivitamin 1 tab PO HS 05/16/17 10/31/17 History (formulary)] Pantoprazole Sodium [Protonix] 40 mg PO DAILY 05/16/17 10/31/17 History Apixaban [Eliquis] 2.5 mg PO BID tab 05/20/17 10/31/17 Rx Spironolactone [Aldactone] 25 mg PO DAILY@1200 06/19/17 10/31/17 History Amiodarone [Cordarone] 200 mg PO HS 10/31/17 10/31/17 History Biotin 5,000 mcg PO DAILY 10/31/17 10/31/17 History Fish Oil/Dha/Epa [Fish Oil 1,200 1 cap PO HS 10/31/17 10/31/17 History mg Fish Oil] Methadone [Dolophine] 5 mg PO BID 10/31/17 10/31/17 History Metoprolol Succinate [Toprol XL] 100 mg PO HS 10/31/17 10/31/17 History Allergies Allergy/AdvReac Type Severity Reaction Status Date / Time levofloxacin [From Levaquin] Allergy Unknown Verified 10/31/17 23:00 morphine Allergy Itching Verified 10/31/17 23:00 nickel Allergy REDNESS OF Verified 10/31/17 23:00 SKIN AND BLISTERING oxycodone HCl [From Percodan] Allergy Itching Verified 10/31/17 23:00 oxycodone terephthalate Allergy Itching Verified 10/31/17 23:00 [From Percodan] amoxicillin [Amoxicillin] AdvReac Diarrhea Verified 10/31/17 23:00 calcium carbonate AdvReac Rapid Verified 10/31/17 23:00 [From Salagen] Heart Rate cephalexin monohydrate AdvReac Unknown Verified 10/31/17 23:00 [From Keflex] codeine AdvReac Nausea & Verified 10/31/17 23:00 Vomiting magnesium [From Salagen] AdvReac Rapid Verified 10/31/17 23:00 Heart Rate methotrexate AdvReac NERVE Verified 10/31/17 23:00 DAMAGE TO HANDS AND FEET pilocarpine HCl AdvReac Rapid Verified 10/31/17 23:00 [From Salagen] Heart Rate pseudoephedrine HCl AdvReac Nausea Verified 10/31/17 23:00 [From Sudafed] Sulfa (Sulfonamide AdvReac Nausea & Verified 10/31/17 23:00 Antibiotics) Vomiting valacyclovir HCl AdvReac Unknown Verified 10/31/17 23:00 [From Valtrex] Surgical - Exam Vital Signs Temp Pulse Resp BP Pulse Ox 101.8 F H 93 18 144/91 93 L 10/31/17 22:13 10/31/17 22:13 10/31/17 22:13 10/31/17 22:13 10/31/17 22:13 - General well developed, well nourished, no distress, no pain - Eyes PERRL, normal ocular movement - ENT decreased hearing - Neck trachea midline - Respiratory Lungs sounds diminished bilaterally. Respirations even, nonlabored. Currently on room air with oxygen saturation 94%. - Cardiovascular S1, S2 present. Regular rate and rhythm. Palpable peripheral pulses bilaterally. Bilateral lower extremity edema present. - Abdomen Abdomen: soft, non tender, bowel sounds - Genitourinary Deferred - Rectum Deferred - Integumentary Right lower extremity wound present. Measurements and picture are in the chart - Neurologic normal coordination, normal sensation - Musculoskeletal normal gait, normal posture - Psychiatric oriented to time, oriented to person, oriented to place, speech is normal, memory intact Results - Labs 10/31/17 22:55 10/31/17 22:55 Abnormal Lab Results - Last 24 Hours (Table) 10/31/17 10/31/17 10/31/17 Range/Units 22:55 22:55 22:55 WBC 19.0 H (3.8-10.6) k/uL MCHC 30.9 L (31.0-37.0) g/dL Neutrophils # 17.2 H (1.3-7.7) k/uL Lymphocytes # 0.8 L (1.0-4.8) k/uL BUN 31 H (7-17) mg/dL Glucose 131 H (74-99) mg/dL Total Creatine Kinase 21 L (30-135) U/L Urine Appearance (Clear) Urine Protein (Negative) Urine Mucus (None) /hpf Urine Yeast (Budding) (None) /hpf 11/01/17 Range/Units 00:04 WBC (3.8-10.6) k/uL MCHC (31.0-37.0) g/dL Neutrophils # (1.3-7.7) k/uL Lymphocytes # (1.0-4.8) k/uL BUN (7-17) mg/dL Glucose (74-99) mg/dL Total Creatine Kinase (30-135) U/L Urine Appearance Cloudy H (Clear) Urine Protein Trace H (Negative) Urine Mucus Rare H (None) /hpf Urine Yeast (Budding) Rare H (None) /hpf Microbiology - Last 24 Hours (Table) 11/01/17 00:04 Urine Culture - Preliminary Urine,Clean Catch 11/01/17 01:41 Wound Culture - Preliminary Leg - Right 11/01/17 01:41 Anaerobic Culture - Preliminary Leg - Right Diabetes panel 10/31/17 Range/Units 22:55 Sodium 139 (137-145) mmol/L Potassium 4.4 (3.5-5.1) mmol/L Chloride 101 (98-107) mmol/L Carbon Dioxide 26 (22-30) mmol/L BUN 31 H (7-17) mg/dL Creatinine 0.80 (0.52-1.04) mg/dL Glucose 131 H (74-99) mg/dL Calcium 9.4 (8.4-10.2) mg/dL AST 19 (14-36) U/L ALT 28 (9-52) U/L Alkaline Phosphatase 91 (38-126) U/L Total Protein 7.0 (6.3-8.2) g/dL Albumin 3.8 (3.5-5.0) g/dL Calcium panel 10/31/17 Range/Units 22:55 Calcium 9.4 (8.4-10.2) mg/dL Phosphorus 2.8 (2.5-4.5) mg/dL Albumin 3.8 (3.5-5.0) g/dL Pituitary panel 10/31/17 Range/Units 22:55 Sodium 139 (137-145) mmol/L Potassium 4.4 (3.5-5.1) mmol/L Chloride 101 (98-107) mmol/L Carbon Dioxide 26 (22-30) mmol/L BUN 31 H (7-17) mg/dL Creatinine 0.80 (0.52-1.04) mg/dL Glucose 131 H (74-99) mg/dL Calcium 9.4 (8.4-10.2) mg/dL Adrenal panel 10/31/17 Range/Units 22:55 Sodium 139 (137-145) mmol/L Potassium 4.4 (3.5-5.1) mmol/L Chloride 101 (98-107) mmol/L Carbon Dioxide 26 (22-30) mmol/L BUN 31 H (7-17) mg/dL Creatinine 0.80 (0.52-1.04) mg/dL Glucose 131 H (74-99) mg/dL Calcium 9.4 (8.4-10.2) mg/dL Total Bilirubin 0.7 (0.2-1.3) mg/dL AST 19 (14-36) U/L ALT 28 (9-52) U/L Alkaline Phosphatase 91 (38-126) U/L Total Protein 7.0 (6.3-8.2) g/dL Albumin 3.8 (3.5-5.0) g/dL - Imaging Chest x-ray: report reviewed, image reviewed EKG: image reviewed Assessment and Plan (1) Hypertension Current Visit: Yes Status: Chronic Code(s): I10 - ESSENTIAL (PRIMARY) HYPERTENSION SNOMED Code(s): 31240397 (2) History of myocardial infarction Current Visit: No Status: Resolved Code(s): I25.2 - OLD MYOCARDIAL INFARCTION SNOMED Code(s): 421949500 (3) Osteoarthritis Current Visit: Yes Status: Chronic Code(s): M19.90 - UNSPECIFIED OSTEOARTHRITIS, UNSPECIFIED SITE SNOMED Code(s): 686435217 (4) Rheumatoid arthritis Current Visit: Yes Status: Chronic Code(s): M06.9 - RHEUMATOID ARTHRITIS, UNSPECIFIED SNOMED Code(s): 86328768 (5) Tobacco dependence in remission Current Visit: No Status: Resolved Code(s): F17.201 - NICOTINE DEPENDENCE, UNSPECIFIED, IN REMISSION SNOMED Code(s): 929331134 (6) Community acquired pneumonia Current Visit: Yes Status: Acute Code(s): J18.9 - PNEUMONIA, UNSPECIFIED ORGANISM SNOMED Code(s): 247427059 (7) CHF (congestive heart failure) Current Visit: Yes Status: Chronic Code(s): I50.9 - HEART FAILURE, UNSPECIFIED SNOMED Code(s): 45832278 (8) Chronic ulcer of calf Current Visit: Yes Status: Chronic Priority: Medium Code(s): L97.209 - NON -PRESSURE CHRONIC ULCER OF UNSP CALF WITH UNSP SEVERITY SNOMED Code(s): 267884956 (9) History of pulmonary embolus (PE) Current Visit: No Status: Resolved Code(s): Z86.711 - PERSONAL HISTORY OF PULMONARY EMBOLISM SNOMED Code(s): 939775250 Plan: The patient was seen and examined at the bedside. Chart/diagnostics were reviewed. Dr. Alcaraz's previous office note was reviewed. At this time we recommend Optisol silver placed over her wound, wrapped with Curlex, gentle Igor wraps. Patient should keep her leg elevated above the level of her heart at all times except when eating or using the bathroom. This was discussed with the patient and her daughter at the bedside. Patient states she has been doing this for 3 years and it hasn't made any difference. Patient was encouraged to try again. Optisol silver dressing can be changed every other day. Medical management per primary care service. Follow up with Dr. Alcaraz in the office after discharge from the hospital. Time with Patient: Greater than 30
[2017-11-02] MEDS: SODIUM CHLORIDE 0.9% 1,000 ML IV SCH (08:45)
[2017-11-02] MEDS: cycloSPORINE 0.05% OPHTH 0.4 ML DROPERETTE BOTH EYES SCH (08:46)
[2017-11-02] MEDS: LORATADINE 10 MG TAB PO SCH (08:46)
[2017-11-02] MEDS: SENNOSIDES-DOCUSATE SODIUM 1 EACH TAB PO SCH (08:47)
[2017-11-02] MEDS: APIXABAN 2.5 MG TABLET PO SCH (08:47)
[2017-11-02] MEDS: PANTOPRAZOLE 40 MG TABLET PO SCH (08:47)
[2017-11-02] MEDS: FLUTICASONE 50MCG/SPRAY NASAL 16GM EA NOSTRIL SCH (08:48)
[2017-11-02] MEDS: IPRATROPIUM-ALBUTEROL 3 ML NEB INHALATION SCH ×2 (08:53→11:25)
[2017-11-02] MEDS: METHADONE 5 MG TAB PO SCH (08:53)
[2017-11-02] MEDS ORDERED: AZITHROMYCIN 500 MG TAB PO SCH (09:00)
--- NOTE | 2017-11-02 09:03 | P.DS ---
Providers Date of admission: 10/31/17 23:38 Expected date of discharge: 11/02/17 Attending physician: Cirilo Brown Consults: 11/01/17 08:50 Consult Physician Routine Consulting Provider: Leonel Alcaraz Consult Reason/Comments: wound to right leg, patient known to you Do you want consulting provider notified?: Yes Primary care physician: Cirilo Brown [facility] Course: 82-year-old female who presents to emergency room on 10/31/2017 with a chief complaint of altered mental status per the patient's family. The patient has a poor historian and states she does not recall the events of yesterday but states that she just remembers being very confused. She states her son went to the store and when he returned she was not acting like her usual self and he brought her to the emergency room for further evaluation. It was also noted that the patient had a fever prior to coming to the emergency room. The patient has a history of fibromyalgia, hypertension, myocardial infarction, osteoarthritis, pulmonary embolus, Sjogren syndrome, and vasculitis. She also has a chronic venous wound to her right calf that she states has been there approximately 3 years. She has been following with Dr. Alcaraz on an outpatient basis. She states that her wound appears worse than normal to her. In the emergency room, a chest x-ray was completed which revealed right lower lobe pneumonia. Laboratory results revealed sodium 139, potassium 4.4, BUN 31, creatinine 0.0, W cc 19, hemoglobin 11.6, platelet count 228. Influenza a and B was negative. The patient was started on azithromycin and admitted to the hospital under the care of Dr. Brown. The patient was evaluated by vascular surgery regarding chronic venous stasis ulcer to right leg. No acute intervention at this time. patient is to follow up with Dr. Alcaraz on an outpatient basis. Wound care includes optisol silver on wound ,wrapped with Curlex, and then gentle michelle wraps. Optisol can be every other day. The patients mentation is back to her baseline. Her respiratory status has improved and she is stable for discharge per Dr. Brown. Prescriptions were sent to the patients preferred pharmacy for azithromycin. She is to follow up on an outpatient basis with Dr. Brown for final wound culture results. She is to follow up with Dr. Alcaraz as well. Preliminary wound culture is positive for staph aureus. Rx also send for Doxycycline. Patient can still be discharged home today and follow up outpatient per Dr Brown DISCHARGE DIAGNOSIS: Community acquired pneumonia, present on admission, sputum culture pending Sepsis with leukocytosis with fever, secondary to above, improved at the time of discharge Altered mental status, present on admission, suspect septic encephalopathy, resolved at the time of discharge Chronic venous ulceration to right lower extremity Urinary retention, requiring straight catheterization, resolved at time of discharge History of coronary artery disease with previous myocardial infarction and stent placement Essential hypertension Fibromyalgia History of pulmonary embolus History of osteoarthritis and rheumatoid arthritis Anxiety, unspecified Nurse practitioner note has been reviewed by physician. Signing provider agrees with the documented findings, assessment, and plan of care. Patient Condition at Discharge: Stable Plan - Discharge Summary Discharge Rx Participant: Yes New Discharge Prescriptions: New Azithromycin [Zithromax] 500 mg PO DAILY #7 tab Doxycycline [Vibramycin] 100 mg PO Q12HR #40 capsule Continue Cyclobenzaprine [Flexeril] 10 mg PO HS PRN PRN Reason: Spasms/Pain cycloSPORINE 0.05% OPHTH SOLN [Restasis] 1 drop BOTH EYES BID Loratadine [Claritin] 10 mg PO BID ALPRAZolam [Xanax] 0.25 mg PO HS Pravastatin Sodium [Pravachol] 20 mg PO HS Mag Carb/Aluminum Hydrox/Algin [Gaviscon Liquid] 30 ml PO QID PRN PRN Reason: Indigestion Melatonin 10 mg PO HS PRN PRN Reason: Insomnia Sennosides-Docusate Sodium [Senokot-S] 3 tab PO QAM Albuterol Sulfate [Proair Hfa] 2 puff INHALATION RT-QID PRN PRN Reason: Dyspnea Acetaminophen [Tylenol Arthritis 8-hr] 1,300 mg PO BID Cranberry Fruit Extract [Theracran] 650 mg PO HS Dexamethasone [Decadron Intensol Oral Solution] 0.5 mg MUCOUS MEM TID PRN PRN Reason: Sjogren's Syndrome DULoxetine HCL [Cymbalta] 60 mg PO HS Fluticasone Nasal [place] [Flonase Nasal [place]] 2 spr EA NOSTRIL DAILY Lysine [l-Lysine] 1,000 mg PO TID Multivitamins, Thera [Multivitamin (formulary)] 1 tab PO HS Pantoprazole Sodium [Protonix] 40 mg PO DAILY Lidocaine-Prilocaine Cream [Emla Cream 2.5%/2.5%] 1 applic TOPICAL QID PRN PRN Reason: Pain Apixaban [Eliquis] 2.5 mg PO BID tab Spironolactone [Aldactone] 25 mg PO DAILY@1200 Biotin 5,000 mcg PO DAILY Fish Oil/Dha/Epa [Fish Oil 1,200 mg Fish Oil] 1 cap PO HS Methadone [Dolophine] 5 mg PO BID Metoprolol Succinate [Toprol XL] 100 mg PO HS Amiodarone [Cordarone] 200 mg PO HS Discharge Medication List ALPRAZolam [Xanax] 0.25 mg PO HS 04/30/14 [History] Cyclobenzaprine [Flexeril] 10 mg PO HS PRN 04/30/14 [History] Loratadine [Claritin] 10 mg PO BID 04/30/14 [History] Pravastatin Sodium [Pravachol] 20 mg PO HS 04/30/14 [History] cycloSPORINE 0.05% OPHTH SOLN [Restasis] 1 drop BOTH EYES BID 04/30/14 [History] Mag Carb/Aluminum Hydrox/Algin [Gaviscon Liquid] 30 ml PO QID PRN 05/21/14 [ History] Melatonin 10 mg PO HS PRN 08/26/15 [History] Acetaminophen [Tylenol Arthritis 8-hr] 1,300 mg PO BID 01/23/16 [History] Albuterol Sulfate [Proair Hfa] 2 puff INHALATION RT-QID PRN 01/23/16 [History] Sennosides-Docusate Sodium [Senokot-S] 3 tab PO QAM 01/23/16 [History] Cranberry Fruit Extract [Theracran] 650 mg PO HS 05/16/17 [History] DULoxetine HCL [Cymbalta] 60 mg PO HS 05/16/17 [History] Dexamethasone [Decadron Intensol Oral Solution] 0.5 mg MUCOUS MEM TID PRN [History] Fluticasone Nasal [place] [Flonase Nasal [place]] 2 spr EA NOSTRIL DAILY 05/16/17 [ History] Lidocaine-Prilocaine Cream [Emla Cream 2.5%/2.5%] 1 applic TOPICAL QID PRN 05/16 [History] Lysine [l-Lysine] 1,000 mg PO TID 05/16/17 [History] Multivitamins, Thera [Multivitamin (formulary)] 1 tab PO HS 05/16/17 [History] Pantoprazole Sodium [Protonix] 40 mg PO DAILY 05/16/17 [History] Apixaban [Eliquis] 2.5 mg PO BID tab 05/20/17 [Rx] Spironolactone [Aldactone] 25 mg PO DAILY@1200 06/19/17 [History] Amiodarone [Cordarone] 200 mg PO HS 10/31/17 [History] Biotin 5,000 mcg PO DAILY 10/31/17 [History] Fish Oil/Dha/Epa [Fish Oil 1,200 mg Fish Oil] 1 cap PO HS 10/31/17 [History] Methadone [Dolophine] 5 mg PO BID 10/31/17 [History] Metoprolol Succinate [Toprol XL] 100 mg PO HS 10/31/17 [History] Azithromycin [Zithromax] 500 mg PO DAILY #7 tab 11/02/17 [Rx] Doxycycline [Vibramycin] 100 mg PO Q12HR #40 capsule 11/02/17 [Rx] Follow up Appointment(s)/Referral(s): Cirilo Brown DO [Primary Care Provider] - 11/10/17 3:10 pm Leonel Alcaraz DO [Doctor of Osteopathic Medicine] - 11/08/17 2:45 pm [facility] Visiting Nurse, [NON-STAFF] - As Needed Patient Instructions/Handouts: Community Acquired Pneumonia (DC) Activity/Diet/Wound Care/Special Instructions: Wound care to right lower leg wound includes optisol silver on wound ,hydrogel, wrapped with kerlex, and then gentle michelle wraps. Optisol can be applied every other day. Follow up on wound cultures at your follow up visit outpatient with Dr. Brown or Dr. Alcaraz Cardiac diet. Heart failure packet given. Activity as tolerated, fall precautions. Discharge Disposition: HOME SELF-CARE
[2017-11-02 09:47] LABS: Anion Gap 9 mmol/L; Blood Urea Nitrogen 20 mg/dL (7-17); Calcium 8.7 mg/dL (8.4-10.2); Carbon Dioxide 22 mmol/L (22-30); Chloride 108 mmol/L (98-107); Glucose 96 mg/dL (74-99); Potassium 4.5 mmol/L (3.5-5.1); Sodium 139 mmol/L (137-145)
[2017-11-02] MEDS: SPIRONOLACTONE 25 MG TAB PO SCH (12:34)
--- NOTE | 2017-11-02 14:29 | P.PN ---
Progress Note - Text Progress Note Date: 11/02/17 Subjective: Cande does complain of some pain in her lower leg. Objective: Her lower leg ulcer is open at this time in an area about 2-1/2 cm in diameter. Cultures were positive for presumptively for staph aureus. Assessment: Exacerbation of chronic right lower leg ulcer with fatty layer exposed. Plan: She will continue on antibiotics. We will treat the ulcer itself with absorptive silver and mild compression. We will follow her as an outpatient.
[2017-11-02 15:02] VITALS: BP 147/70; PULSE 64; TEMP 98.7
== END 2017-11-02 15:20 | disposition home health service (06) | DRG 871 ==
LOC: EC 22:07 → 4MS4W 23:38
PROVIDERS: ADMIT Family Medicine; ATTEND Family Medicine
DX: A41.9 Sepsis, unspecified organism (principal); J18.9 Pneumonia, unspecified organism; G93.41 Metabolic encephalopathy; I11.0 Hypertensive heart disease with heart failure; I50.9 Heart failure, unspecified; M06.9 Rheumatoid arthritis, unspecified; F17.201 Nicotine dependence, unspecified, in remission; F41.9 Anxiety disorder, unspecified; I25.2 Old myocardial infarction; J45.909 Unspecified asthma, uncomplicated; M19.90 Unspecified osteoarthritis, unspecified site; M35.00 Sjogren syndrome, unspecified; M79.7 Fibromyalgia; R33.9 Retention of urine, unspecified; M71.9 Bursopathy, unspecified; I25.10 Atherosclerotic heart disease of native coronary artery without angina pectoris; F40.240 Claustrophobia; I87.2 Venous insufficiency (chronic) (peripheral); Z79.01 Long term (current) use of anticoagulants; Z79.899 Other long term (current) drug therapy; Z86.711 Personal history of pulmonary embolism; Z95.5 Presence of coronary angioplasty implant and graft; Z87.01 Personal history of pneumonia (recurrent); Z88.1 Allergy status to other antibiotic agents; Z88.5 Allergy status to narcotic agent; Z88.0 Allergy status to penicillin; Z88.2 Allergy status to sulfonamides; Z88.8 Allergy status to other drugs, medicaments and biological substances; Z91.048 Other nonmedicinal substance allergy status
CPT/HCPCS: 36415; 71046; 80048; 80053; 81001; 82550; 82553; 83605; 83735; 84100; 84484; 85025; 85610; 85730; 87040; 87070; 87075; 87077; 87086; 87186; 87205; 87502; 93005; 94640; 94760; 96361; 96365; 99285

== ENCOUNTER 2018-01-13 13:48 | Emergency (ER) | payer MEDICARE ==
[2018-01-13 13:58] VITALS: TEMP 98.2
[2018-01-13] MEDS ORDERED: SODIUM CHLORIDE 0.9% 1,000 ML IV STA (14:23)
--- NOTE | 2018-01-13 14:27 | ED ---
General Adult HPI - General Chief complaint: Fall Stated complaint: Fall Time Seen by Provider: 01/13/18 14:15 Source: patient, family, RN notes reviewed Mode of arrival: wheelchair Limitations: no limitations - History of Present Illness Initial comments: Patient is a pleasant 82-year-old female presenting to the emergency Department with frequent falls. Patient did fall again last night and hurt her right hip. Patient states she is able to walk on it however there is pain. Patient has had frequent falls recently. No isolated area of weakness. Patient denies confusion however son has concerns for confusion. Patient has had more frequent falls over the past several weeks to months. - Related Data Home Medications Medication Instructions Recorded Confirmed ALPRAZolam [Xanax] 0.25 mg PO HS 04/30/14 01/13/18 Cyclobenzaprine [Flexeril] 10 mg PO HS PRN 04/30/14 01/13/18 Loratadine [Claritin] 10 mg PO BID 04/30/14 01/13/18 Pravastatin Sodium [Pravachol] 20 mg PO HS 04/30/14 01/13/18 cycloSPORINE 0.05% OPHTH SOLN 1 drop BOTH EYES BID 04/30/14 01/13/18 [Restasis] Mag Carb/Aluminum Hydrox/Algin 30 ml PO QID PRN 05/21/14 01/13/18 [Gaviscon Liquid] Melatonin 10 mg PO HS PRN 08/26/15 01/13/18 Acetaminophen [Tylenol Arthritis 1,300 mg PO BID 01/23/16 01/13/18 8-hr] Albuterol Sulfate [Proair Hfa] 2 puff INHALATION RT-QID PRN 01/23/16 01/13/18 Sennosides-Docusate Sodium 3 tab PO QAM 01/23/16 01/13/18 [Senokot-S] Cranberry Fruit Extract [Theracran] 650 mg PO HS 05/16/17 01/13/18 DULoxetine HCL [Cymbalta] 60 mg PO HS 05/16/17 01/13/18 Dexamethasone [Decadron Intensol 0.5 mg MUCOUS MEM TID PRN 05/16/17 01/13/18 Oral Solution] Fluticasone Nasal [place] [Flonase 2 spr EA NOSTRIL DAILY 05/16/17 01/13/18 Nasal [place]] Lidocaine-Prilocaine Cream [Emla 1 applic TOPICAL QID PRN 05/16/17 01/13/18 Cream 2.5%/2.5%] Multivitamins, Thera [Multivitamin 1 tab PO HS 05/16/17 01/13/18 (formulary)] Pantoprazole Sodium [Protonix] 40 mg PO DAILY 05/16/17 01/13/18 Spironolactone [Aldactone] 25 mg PO DAILY 06/19/17 01/13/18 Amiodarone [Cordarone] 200 mg PO HS 10/31/17 01/13/18 Biotin 5,000 mcg PO DAILY 10/31/17 01/13/18 Fish Oil/Dha/Epa [Fish Oil 1,200 1,200 mg PO BID 10/31/17 01/13/18 mg Fish Oil] Methadone [Dolophine] 5 mg PO BID 10/31/17 01/13/18 Metoprolol Succinate [Toprol XL] 100 mg PO HS 10/31/17 01/13/18 Apixaban [Eliquis] 5 mg PO BID 11/14/17 01/13/18 Azithromycin [Zithromax] 500 mg PO DAILY 11/15/17 01/13/18 Ciprofloxacin HCl 500 mg PO TID 11/29/17 01/13/18 Nitrofurantoin Monohyd/M-Cryst 100 mg PO Q12HR 01/13/18 01/13/18 [Macrobid] Allergies Allergy/AdvReac Type Severity Reaction Status Date / Time levofloxacin [From Levaquin] Allergy Unknown Verified 01/13/18 14:33 morphine Allergy Itching Verified 01/13/18 14:33 nickel Allergy REDNESS OF Verified 01/13/18 14:33 SKIN AND BLISTERING oxycodone HCl [From Percodan] Allergy Itching Verified 01/13/18 14:33 oxycodone terephthalate Allergy Itching Verified 01/13/18 14:33 [From Percodan] amoxicillin [Amoxicillin] AdvReac Diarrhea Verified 01/13/18 14:33 calcium carbonate AdvReac Rapid Verified 01/13/18 14:33 [From Salagen] Heart Rate cephalexin monohydrate AdvReac Unknown Verified 01/13/18 14:33 [From Keflex] codeine AdvReac Nausea & Verified 01/13/18 14:33 Vomiting magnesium [From [place]] AdvReac Rapid Verified 01/13/18 14:33 Heart Rate methotrexate AdvReac NERVE Verified 01/13/18 14:33 DAMAGE TO HANDS AND FEET pilocarpine HCl AdvReac Rapid Verified 01/13/18 14:33 [From [place]] Heart Rate pseudoephedrine HCl AdvReac Nausea Verified 01/13/18 14:33 [From Sudafed] Sulfa (Sulfonamide AdvReac Nausea & Verified 01/13/18 14:33 Antibiotics) Vomiting valacyclovir HCl AdvReac Unknown Verified 01/13/18 14:33 [From Valtrex] Review of Systems ROS Statement: Those systems with pertinent positive or pertinent negative responses have been documented in the HPI. ROS Other: All systems not noted in ROS Statement are negative. Constitutional: Denies: fever Eyes: Denies: eye pain ENT: Denies: ear pain Respiratory: Denies: cough Cardiovascular: Denies: chest pain Endocrine: Denies: fatigue Gastrointestinal: Denies: abdominal pain Genitourinary: Denies: dysuria Musculoskeletal: Reports: back pain (Chronic and unchanged) Skin: Denies: rash Neurological: Reports: weakness (Generalized causing falls). Denies: headache Past Medical History Past Medical History: Fibromyalgia, Hypertension, Myocardial Infarction (CO), Osteoarthritis (OA), Pneumonia, Pulmonary Embolus (PE), Rheumatoid Arthritis (RA ), Skin Disorder, Pulmonary Embolus (PE), Rheumatoid Arthritis (RA), Skin Disorder Additional Past Medical History / Comment(s): Hx of frequent bladder infections , sjogren's syndrome, bursitis, vasculitis, R leg calf wound, allergies, silent mi."superficial blood clot rt leg". Last Myocardial Infarction Date:: 2002? History of Any Multi-Drug Resistant Organisms: MRSA Date of last positivie culture/infection: 11-02-17 MDRO Source:: Right leg wound Past Surgical History: Adenoidectomy, Appendectomy, Back Surgery, Bladder Surgery, Cholecystectomy, Heart Catheterization With Stent, Tonsillectomy Additional Past Surgical History / Comment(s): eligio hand sx trigger finger sx Past Anesthesia/Blood Transfusion Reactions: No Reported Reaction Additional Past Anesthesia/Blood Transfusion Reaction / Comment(s): clausterphobia Date of Last Stent Placement:: 2008 Past Psychological History: Anxiety Smoking Status: Former smoker Past Alcohol Use History: Occasional Past Drug Use History: None Reported - Past Family History Father Family Medical History: Cancer Additional Family Medical History / Comment(s): colon cancer 40s Mother Family Medical History: Cancer General Exam Limitations: no limitations General appearance: alert, in no apparent distress Head exam: Present: atraumatic Eye exam: Present: normal appearance, PERRL ENT exam: Present: normal oropharynx Neck exam: Present: normal inspection Respiratory exam: Present: normal lung sounds bilaterally Cardiovascular Exam: Present: regular rate, normal rhythm GI/Abdominal exam: Present: soft. Absent: tenderness Extremities exam: Present: tenderness (Right lateral hip tenderness) Back exam: Absent: tenderness Neurological exam: Present: alert, CN II-XII intact. Absent: motor sensory deficit Expanded Patient oriented to: Present: person, place. Absent: time (States the year is 2016) Speech: Present: fluid speech Motor strength exam: RUE: 5, LUE: 5, RLE: 5, LLE: 5 Psychiatric exam: Present: normal affect, normal mood Skin exam: Present: other (Ecchymosis right lateral hip region.) Course Vital Signs 01/13/18 01/13/18 13:55 15:50 Temperature 98.2 F Pulse Rate 66 68 Respiratory 20 16 Rate Blood Pressure 131/78 137/62 O2 Sat by Pulse 96 97 Oximetry EKG Findings - EKG Comments: EKG Findings:: Normal sinus rhythm 64. CO 206, first-degree AV block. QRS 124. QT 470. QTc 44. Left axis. Left anterior fascicular block. No acute ST change. Medical Decision Making - Medical Decision Making Patient reevaluated and resting comfortably in bed. Patient and family updated on results. Patient does request discharge home. Patient feels she is able to take care of herself still and does not need to be hospitalized. Son is present and in agreement. - Lab Data Result diagrams: 01/13/18 14:46 01/13/18 14:46 Lab Results 01/13/18 01/13/18 01/13/18 Range/Units 14:46 14:46 14:46 WBC 9.0 (3.8-10.6) k/uL RBC 3.74 L (3.80-5.40) m/uL Hgb 10.5 L (11.4-16.0) gm/dL Hct 34.2 (34.0-46.0) % MCV 91.6 (80.0-100.0) fL MCH 28.2 (25.0-35.0) pg MCHC 30.8 L (31.0-37.0) g/dL RDW 15.5 (11.5-15.5) % Plt Count 230 (150-450) k/uL Neutrophils % 79 % Lymphocytes % 11 % Monocytes % 5 % Eosinophils % 2 % Basophils % 1 % Neutrophils # 7.1 (1.3-7.7) k/uL Lymphocytes # 1.0 (1.0-4.8) k/uL Monocytes # 0.5 (0-1.0) k/uL Eosinophils # 0.2 (0-0.7) k/uL Basophils # 0.0 (0-0.2) k/uL Hypochromasia Slight PT (9.0-12.0) sec INR (<1.2) APTT (22.0-30.0) sec Sodium 137 (137-145) mmol/L Potassium 5.0 (3.5-5.1) mmol/L Chloride 102 (98-107) mmol/L Carbon Dioxide 26 (22-30) mmol/L Anion Gap 9 mmol/L BUN 20 H (7-17) mg/dL Creatinine 0.70 (0.52-1.04) mg/dL Est GFR (CKD-EPI)AfAm >90 (>60 ml/min/1.73 sqM) Est GFR (CKD-EPI)NonAf 82 (>60 ml/min/1.73 sqM) Glucose 99 (74-99) mg/dL Plasma Lactic Acid Carl (0.7-2.0) mmol/L Calcium 9.5 (8.4-10.2) mg/dL Phosphorus 3.5 (2.5-4.5) mg/dL Magnesium 1.8 (1.6-2.3) mg/dL Total Bilirubin 0.7 (0.2-1.3) mg/dL AST 24 (14-36) U/L ALT 26 (9-52) U/L Alkaline Phosphatase 67 (38-126) U/L Total Creatine Kinase 30 (30-135) U/L CK-MB (CK-2) 0.6 (0.0-2.4) ng/mL CK-MB (CK-2) Rel Index 2.0 Troponin I <0.012 (0.000-0.034) ng/mL Total Protein 6.2 L (6.3-8.2) g/dL Albumin 3.3 L (3.5-5.0) g/dL TSH 1.780 (0.465-4.680) mIU/L Free T4 2.22 H (0.78-2.19) ng/dL Free T3 pg/mL 2.8 (2.8-5.3) pg/ml Urine Color Urine Appearance (Clear) Urine pH (5.0-8.0) Ur Specific [place] (1.001-1.035) Urine Protein (Negative) Urine Glucose (UA) (Negative) Urine Ketones (Negative) Urine Blood (Negative) Urine Nitrite (Negative) Urine Bilirubin (Negative) Urine Urobilinogen (<2.0) mg/dL Ur Leukocyte Esterase (Negative) 01/13/18 01/13/18 01/13/18 Range/Units 14:46 14:46 15:35 WBC (3.8-10.6) k/uL RBC (3.80-5.40) m/uL Hgb (11.4-16.0) gm/dL Hct (34.0-46.0) % MCV (80.0-100.0) fL MCH (25.0-35.0) pg MCHC (31.0-37.0) g/dL RDW (11.5-15.5) % Plt Count (150-450) k/uL Neutrophils % % Lymphocytes % % Monocytes % % Eosinophils % % Basophils % % Neutrophils # (1.3-7.7) k/uL Lymphocytes # (1.0-4.8) k/uL Monocytes # (0-1.0) k/uL Eosinophils # (0-0.7) k/uL Basophils # (0-0.2) k/uL Hypochromasia PT 10.7 (9.0-12.0) sec INR 1.1 (<1.2) APTT 26.0 (22.0-30.0) sec Sodium (137-145) mmol/L Potassium (3.5-5.1) mmol/L Chloride (98-107) mmol/L Carbon Dioxide (22-30) mmol/L Anion Gap mmol/L BUN (7-17) mg/dL Creatinine (0.52-1.04) mg/dL Est GFR (CKD-EPI)AfAm (>60 ml/min/1.73 sqM) Est GFR (CKD-EPI)NonAf (>60 ml/min/1.73 sqM) Glucose (74-99) mg/dL Plasma Lactic Acid Carl 0.9 (0.7-2.0) mmol/L Calcium (8.4-10.2) mg/dL Phosphorus (2.5-4.5) mg/dL Magnesium (1.6-2.3) mg/dL Total Bilirubin (0.2-1.3) mg/dL AST (14-36) U/L ALT (9-52) U/L Alkaline Phosphatase (38-126) U/L Total Creatine Kinase (30-135) U/L CK-MB (CK-2) (0.0-2.4) ng/mL CK-MB (CK-2) Rel Index Troponin I (0.000-0.034) ng/mL Total Protein (6.3-8.2) g/dL Albumin (3.5-5.0) g/dL TSH (0.465-4.680) mIU/L Free T4 (0.78-2.19) ng/dL Free T3 pg/mL (2.8-5.3) pg/ml Urine Color Yellow Urine Appearance Clear (Clear) Urine pH 7.0 (5.0-8.0) Ur Specific [place] 1.021 (1.001-1.035) Urine Protein Trace H (Negative) Urine Glucose (UA) Negative (Negative) Urine Ketones Negative (Negative) Urine Blood Negative (Negative) Urine Nitrite Negative (Negative) Urine Bilirubin Negative (Negative) Urine Urobilinogen 2.0 (<2.0) mg/dL Ur Leukocyte Esterase Negative (Negative) - Radiology Data Radiology results: report reviewed (Computed tomography scan of the brain shows no acute abnormality.), image reviewed (Abdomen pelvis x-ray are negative for fracture. Chest x-ray does show some interstitial lung disease.) Disposition Clinical Impression: Fall, Contusion, hip Disposition: HOME SELF-CARE Condition: Stable Instructions: Fall Prevention for Older Adults (ED), Hip Contusion (ED) Additional Instructions: Please follow-up with Dr. Brown in the next couple days for recheck. Return for weakness, confusion, fevers, unable to walk, worsening or changing symptoms or other concerns. Referrals: Cirilo Brown DO [Primary Care Provider] - 1-2 days Time of Disposition: 16:10
[2018-01-13 15:00] LABS: Basophils % (A) 1 %; Eosinophils # (A) 0.2 k/uL (0-0.7); Eosinophils % (A) 2 %; HCT 34.2 % (34.0-46.0); HGB 10.5 gm/dL (11.4-16.0); Hypochromasia Slight; Lymphocytes % (A) 11 %; MCH 28.2 pg (25.0-35.0); MCHC 30.8 g/dL (31.0-37.0); MCV 91.6 fL (80.0-100.0); Mean Platelet Volume 8.4; Monocytes # (A) 0.5 k/uL (0-1.0); Monocytes % (A) 5 %; Neutrophils # (A) 7.1 k/uL (1.3-7.7); Neutrophils % (A) 79 %; Platelet Count 230 k/uL (150-450); RBC 3.74 m/uL (3.80-5.40); RDW 15.5 % (11.5-15.5)
[2018-01-13 15:10] LABS: ALT 26 U/L (9-52); AST 24 U/L (14-36); Albumin 3.3 g/dL (3.5-5.0); Alkaline Phosphatase 67 U/L (38-126); Anion Gap 9 mmol/L; Blood Urea Nitrogen 20 mg/dL (7-17); Calcium 9.5 mg/dL (8.4-10.2); Carbon Dioxide 26 mmol/L (22-30); Chloride 102 mmol/L (98-107); Glucose 99 mg/dL (74-99); Magnesium 1.8 mg/dL (1.6-2.3); Phosphorus 3.5 mg/dL (2.5-4.5); Sodium 137 mmol/L (137-145); Total Bilirubin 0.7 mg/dL (0.2-1.3); Total Protein 6.2 g/dL (6.3-8.2)
[2018-01-13 15:11] LABS: INR 1.1 (<1.2); Prothrombin Time 10.7 sec (9.0-12.0)
--- NOTE | 2018-01-13 15:24 | XR ---
EXAMINATION TYPE: XR chest 2V DATE OF EXAM: 01/13/2018 COMPARISON: Prior chest x-ray 11/01/2017 HISTORY: Weakness TECHNIQUE: Frontal and lateral views of the chest are obtained. FINDINGS: Cardiac mediastinal silhouette, pulmonary vascularity and nadine are stable. Interstitium is increased as on prior. There are prominent lung volumes. No evident pneumothorax or pleural effusion . The aorta is dense. Postop change noted in the cervical spine. There are overlying cardiac leads. P ostop change noted to the lower spine. IMPRESSION: Interstitial lung disease, correlate for emphysema. Cardiomegaly. Difficult to exclude i nterstitial edema. Follow-up recommended.
[2018-01-13 15:26] LABS: Creatine Kinase 30 U/L (30-135); T4, Free (Free Thyroxine) 2.22 ng/dL (0.78-2.19)
--- NOTE | 2018-01-13 15:26 | XR ---
EXAMINATION TYPE: XR Hip RT and AP Pelvis DATE OF EXAM: 01/13/2018 COMPARISON: NONE HISTORY: Trauma and pain TECHNIQUE: A single AP view of the pelvis is obtained. Two views of the right hip are obtained. FINDINGS: There is no acute fracture/dislocation evident in the pelvis. The hip and sacroiliac join ts appear symmetric and unremarkable. The overlying soft tissue appears unremarkable. Two views of right hip show no acute fracture or dislocation. No focal lytic or sclerotic lesion see n in the proximal right femur. The overlying soft tissue is unremarkable. Postop changes are noted status post fusion at the lumbosacral spine. Bone mineralization is reduced which could limit sensiti vity. Surgical clips present in the left hemipelvis. Vascular calcifications noted in the pelvis. Pro bable injection granulomas over the left and right gluteal region. Sclerosis at the left sacroiliac j oint likely due to stress change. IMPRESSION: There is no acute fracture or dislocation in the pelvis or right hip.
--- NOTE | 2018-01-13 15:29 | CT ---
EXAMINATION TYPE: CT brain wo con DATE OF EXAM: 01/13/2018 COMPARISON: Prior head CT 05/16/2017 HISTORY: Weakness and pain CT DLP: 1195 mGycm Automated exposure control for dose reduction was used. Helical acquisition through the brain FINDINGS: Stable compared to prior exam. Cerebral vascular calcifications are present. Age-related atrophy agai n noted. Periventricular white matter shows low attenuation as on prior exam. Calvarium is intact. Pa ranasal sinuses and mastoid air cells as visualized are normal. IMPRESSION: STABLE EXAM, NO ACUTE ABNORMALITY EVIDENT. AGE-RELATED CHANGES OF ATROPHY AND PROBABLE CHRONIC SMALL VESSEL ISCHEMIA.
[2018-01-13 15:39] LABS: Creatine Kinase MB 0.6 ng/mL (0.0-2.4); Troponin I <0.012 ng/mL (0.000-0.034)
[2018-01-13 15:46] LABS: Appearance,Urine Clear (Clear); Bilirubin,Urine Negative (Negative); Blood,Urine Negative (Negative); Color,Urine Yellow; Glucose,Urine (UA) Negative (Negative); Ketones,Urine Negative (Negative); Leukocyte Esterase,Urine Negative (Negative); Nitrite,Urine Negative (Negative); Protein,Urine Trace (Negative); Specific Gravity,Urine 1.021 (1.001-1.035)
[2018-01-13 15:51] VITALS: BP 137/62; PULSE 68; RESP 16
== END 2018-01-13 16:53 | disposition home or self-care (01) ==
LOC: EC 13:48
DX: S70.01XA Contusion of right hip, initial encounter (principal); M79.7 Fibromyalgia; I10 Essential (primary) hypertension; I25.2 Old myocardial infarction; M06.9 Rheumatoid arthritis, unspecified; F41.9 Anxiety disorder, unspecified; Z86.711 Personal history of pulmonary embolism; Z86.718 Personal history of other venous thrombosis and embolism; Z86.14 Personal history of Methicillin resistant Staphylococcus aureus infection; Z95.5 Presence of coronary angioplasty implant and graft; Z87.891 Personal history of nicotine dependence; Z79.01 Long term (current) use of anticoagulants; Z79.51 Long term (current) use of inhaled steroids; Z79.891 Long term (current) use of opiate analgesic; Z79.899 Other long term (current) drug therapy; Z88.1 Allergy status to other antibiotic agents; Z88.5 Allergy status to narcotic agent; Z91.048 Other nonmedicinal substance allergy status; Z88.0 Allergy status to penicillin; Z88.8 Allergy status to other drugs, medicaments and biological substances; Z88.2 Allergy status to sulfonamides; W06.XXXA Fall from bed, initial encounter; Y92.009 Unspecified place in unspecified non-institutional (private) residence as the place of occurrence of the external cause
CPT/HCPCS: 36415; 51701; 70450; 71046; 73502; 80053; 81003; 82550; 82553; 83605; 83735; 84100; 84439; 84443; 84481; 84484; 85025; 85610; 85730; 87086; 93005; 96360; 99284

== ENCOUNTER 2018-03-24 08:54 | Observation (INO) | payer MEDICARE ==
[2018-03-24] MEDS ORDERED: ASPIRIN 81 MG PO STA (09:03)
--- NOTE | 2018-03-24 09:12 | ED ---
Chest Pain HPI - General Source: patient, EMS, RN notes reviewed Mode of arrival: EMS Limitations: no limitations <Duncan Hall - Last Filed: 03/24/18 10:26> <Herber Ramos - Last Filed: 03/24/18 11:54> - General Chief Complaint: Chest Pain Stated Complaint: Chest pain Time Seen by Provider: 03/24/18 09:02 - History of Present Illness Initial Comments: This is a 82-year-old female presents emergency Department chief complaint of chest discomfort. Patient states pain started earlier this morning. She states it initially felt like some indigestion but then seemed to worsen and radiates to her left shoulder and arm region. Patient has had an RI in the past. Patient does have a history of hypertension and is a former smoker. Denies any hyperlipidemia or diabetes. Patient has no current shortness of breath and she states she does have chronic cough secondary to her Sjogren's. Patient states the pain has resolved and she has no symptoms at this time. ( Duncan Hall) - Related Data Home Medications Medication Instructions Recorded Confirmed ALPRAZolam [Xanax] 0.25 mg PO HS 04/30/14 03/24/18 Loratadine [Claritin] 10 mg PO BID 04/30/14 03/24/18 Pravastatin Sodium [Pravachol] 20 mg PO HS 04/30/14 03/24/18 cycloSPORINE 0.05% OPHTH SOLN 1 drop BOTH EYES BID 04/30/14 03/24/18 [Restasis] Mag Carb/Aluminum Hydrox/Algin 30 ml PO QID PRN 05/21/14 03/24/18 [Gaviscon Liquid] Melatonin 10 mg PO HS 08/26/15 03/24/18 Acetaminophen [Tylenol Arthritis 1,300 mg PO BID 01/23/16 03/24/18 8-hr] Albuterol Sulfate [Proair Hfa] 2 puff INHALATION RT-QID PRN 01/23/16 03/24/18 Sennosides-Docusate Sodium 1 tab PO DAILY PRN 01/23/16 03/24/18 [Senokot-S] DULoxetine HCL [Cymbalta] 60 mg PO HS 05/16/17 03/24/18 Dexamethasone [Decadron Intensol 0.5 mg MUCOUS MEM TID PRN 05/16/17 03/24/18 Oral Solution] Fluticasone Nasal [place] [Flonase 2 spr EA NOSTRIL DAILY 05/16/17 03/24/18 Nasal [place]] Lidocaine-Prilocaine Cream [Emla 1 applic TOPICAL QID PRN 05/16/17 03/24/18 Cream 2.5%/2.5%] Multivitamins, Thera [Multivitamin 1 tab PO DAILY@1200 05/16/17 03/24/18 (formulary)] Spironolactone [Aldactone] 25 mg PO DAILY 06/19/17 03/24/18 Amiodarone [Cordarone] 200 mg PO HS 10/31/17 03/24/18 Biotin 5,000 mcg PO DAILY 10/31/17 03/24/18 Fish Oil/Dha/Epa [Fish Oil 1,200 1 cap PO DAILY@1200 10/31/17 03/24/18 mg Fish Oil] Methadone [Dolophine] 5 mg PO TID 10/31/17 03/24/18 Apixaban [Eliquis] 2.5 mg PO BID 03/24/18 03/24/18 Metoprolol Succinate (ER) [Toprol 50 mg PO DAILY 03/24/18 03/24/18 Xl] P Col-Rite 1 tab PO DAILY 03/24/18 03/24/18 Pantoprazole Sodium [Protonix] 20 mg PO DAILY 03/24/18 03/24/18 Theracran 36 mg PO HS 03/24/18 03/24/18 Allergies Allergy/AdvReac Type Severity Reaction Status Date / Time levofloxacin [From Levaquin] Allergy Unknown Verified 03/24/18 11:38 morphine Allergy Itching Verified 03/24/18 11:38 nickel Allergy REDNESS OF Verified 03/24/18 11:38 SKIN AND BLISTERING oxycodone HCl [From Percodan] Allergy Itching Verified 03/24/18 11:38 oxycodone terephthalate Allergy Itching Verified 03/24/18 11:38 [From Percodan] amoxicillin [Amoxicillin] AdvReac Diarrhea Verified 03/24/18 11:38 calcium carbonate AdvReac Rapid Verified 03/24/18 11:38 [From Salagen] Heart Rate cephalexin monohydrate AdvReac Unknown Verified 03/24/18 11:38 [From Keflex] codeine AdvReac Nausea & Verified 03/24/18 11:38 Vomiting magnesium [From Salagen] AdvReac Rapid Verified 03/24/18 11:38 Heart Rate methotrexate AdvReac NERVE Verified 03/24/18 11:38 DAMAGE TO HANDS AND FEET pilocarpine HCl AdvReac Rapid Verified 03/24/18 11:38 [From Salagen] Heart Rate pseudoephedrine HCl AdvReac Nausea Verified 03/24/18 11:38 [From Sudafed] Sulfa (Sulfonamide AdvReac Nausea & Verified 03/24/18 11:38 Antibiotics) Vomiting valacyclovir HCl AdvReac Unknown Verified 03/24/18 11:38 [From Valtrex] Review of Systems ROS Other: All systems not noted in ROS Statement are negative. <Duncan Hall - Last Filed: 03/24/18 10:26> ROS Other: All systems not noted in ROS Statement are negative. <Herber Ramos - Last Filed: 03/24/18 11:54> ROS Statement: Those systems with pertinent positive or pertinent negative responses have been documented in the HPI. EKG Findings - EKG Comments: EKG Findings:: EKG performed at 9:03 sinus bradycardia with first-degree AV block, left axis deviation rate of 59 NE 224 QRS 118 QT/QTC 450/445 <Duncan Hall - Last Filed: 03/24/18 10:26> Past Medical History Past Medical History: Atrial Fibrillation, Fibromyalgia, Hypertension, Myocardial Infarction (RI), Osteoarthritis (OA), Pneumonia, Pulmonary Embolus ( PE), Pulmonary Embolus (PE), Rheumatoid Arthritis (RA), Rheumatoid Arthritis (RA ), Skin Disorder, Skin Disorder Additional Past Medical History / Comment(s): Hx of frequent bladder infections , sjogren's syndrome, bursitis, vasculitis, R leg calf wound, allergies, silent mi."superficial blood clot rt leg". Last Myocardial Infarction Date:: 2002? History of Any Multi-Drug Resistant Organisms: MRSA Date of last positivie culture/infection: 11-02-17 MDRO Source:: Right leg wound Past Surgical History: Adenoidectomy, Appendectomy, Back Surgery, Bladder Surgery, Cholecystectomy, Heart Catheterization With Stent, Tonsillectomy Additional Past Surgical History / Comment(s): eligio hand sx trigger finger sx Past Anesthesia/Blood Transfusion Reactions: No Reported Reaction Additional Past Anesthesia/Blood Transfusion Reaction / Comment(s): clausterphobia Date of Last Stent Placement:: 2008 Past Psychological History: Anxiety Smoking Status: Former smoker Past Alcohol Use History: Occasional Past Drug Use History: None Reported - Past Family History Father Family Medical History: Cancer Additional Family Medical History / Comment(s): colon cancer 40s Mother Family Medical History: Cancer <Duncan Hall - Last Filed: 03/24/18 10:26> General Exam Limitations: no limitations General appearance: alert, in no apparent distress Head exam: Present: atraumatic, normocephalic, normal inspection Neck exam: Present: normal inspection, full ROM. Absent: tenderness, meningismus, lymphadenopathy Respiratory exam: Present: normal lung sounds bilaterally. Absent: respiratory distress, wheezes, rales, rhonchi, stridor Cardiovascular Exam: Present: normal rhythm, bradycardia, normal heart sounds. Absent: systolic murmur, diastolic murmur, rubs, gallop, clicks GI/Abdominal exam: Present: soft, normal bowel sounds. Absent: distended, tenderness, guarding, rebound, rigid <Duncan Hall - Last Filed: 03/24/18 10:26> Course <Duncan Hall - Last Filed: 03/24/18 10:26> <Herber Ramos - Last Filed: 03/24/18 11:54> Vital Signs 03/24/18 03/24/18 03/24/18 08:56 10:00 11:20 Temperature 97.7 F Pulse Rate 55 L 54 L 56 L Respiratory 16 16 16 Rate Blood Pressure 146/67 155/65 163/68 O2 Sat by Pulse 94 L 96 96 Oximetry - Reevaluation(s) Reevaluation #1: 03/24/18 11:53 PA supervision personally did an evaluation of this case and patient. The patient will be admitted for evaluation of chest pain. I did review the charting as well as the H&P and lab work. I do agree with the assessment and plan. (Herber Ramos) Chest Pain MDM <Duncan Hall - Last Filed: 03/24/18 10:26> <Herber Ramos - Last Filed: 03/24/18 11:54> - MDM 82-year-old female presented to the ER for chest pain. Patient pain had resolved prior to arrival. Patient had lab work, EKG and chest x-ray. Patient be admitted for chest pain observation and serial enzymes. Patient will have cardiology consult (Duncan Hall) Disposition <Duncan Hall - Last Filed: 03/24/18 10:26> <Herber Ramos - Last Filed: 03/24/18 11:54> Clinical Impression: Chest pain Disposition: ADMITTED IP TO THIS HOSP Condition: Stable
[2018-03-24 09:19] LABS: Basophils % (A) 1 %; Eosinophils # (A) 0.3 k/uL (0-0.7); Eosinophils % (A) 3 %; HCT 37.3 % (34.0-46.0); HGB 11.5 gm/dL (11.4-16.0); Hypochromasia Slight; Lymphocytes % (A) 13 %; MCH 28.5 pg (25.0-35.0); MCHC 30.8 g/dL (31.0-37.0); MCV 92.7 fL (80.0-100.0); Mean Platelet Volume 7.7; Monocytes # (A) 0.6 k/uL (0-1.0); Monocytes % (A) 8 %; Neutrophils # (A) 5.5 k/uL (1.3-7.7); Neutrophils % (A) 72 %; Platelet Count 236 k/uL (150-450); RBC 4.02 m/uL (3.80-5.40); RDW 15.9 % (11.5-15.5); WBC 7.7 k/uL (3.8-10.6)
[2018-03-24 09:27] LABS: INR 1.1 (<1.2); Partial Thromboplastin Time 24.3 sec (22.0-30.0); Prothrombin Time 10.7 sec (9.0-12.0)
[2018-03-24 09:30] LABS: ALT 38 U/L (9-52); AST 71 U/L (14-36); Albumin 3.3 g/dL (3.5-5.0); Alkaline Phosphatase 79 U/L (38-126); Anion Gap 10 mmol/L; Blood Urea Nitrogen 32 mg/dL (7-17); Carbon Dioxide 28 mmol/L (22-30); Chloride 102 mmol/L (98-107); Glucose 75 mg/dL (74-99); Lipase 35 U/L (23-300); Sodium 140 mmol/L (137-145); Total Bilirubin 0.8 mg/dL (0.2-1.3); Total Protein 6.3 g/dL (6.3-8.2)
[2018-03-24 09:34] LABS: Potassium 5.2 mmol/L (3.5-5.1)
--- NOTE | 2018-03-24 09:35 | XR ---
EXAMINATION TYPE: XR chest 2V DATE OF EXAM: 03/24/2018 COMPARISON: 01/13/2018 HISTORY: Shortness of breath TECHNIQUE: Frontal and lateral views of the chest are obtained. FINDINGS: There is cardiomegaly with pulmonary venous congestion. Early alveolar edema about the left perihilar and right infrahilar regions difficult to exclude. Mediastinal structures are stable and grossly unremarkable. No evidence for hilar prominence. Degenerative changes dorsal spine. IMPRESSION: 1. There is cardiomegaly with pulmonary venous congestion. Early alveolar edema about the left perihi lar and right infrahilar regions difficult to exclude
[2018-03-24 09:37] LABS: Creatine Kinase 164 U/L (30-135)
[2018-03-24 09:50] LABS: Troponin I <0.012 ng/mL (0.000-0.034)
[2018-03-24 09:52] LABS: Creatine Kinase MB 3.2 ng/mL (0.0-2.4)
[2018-03-24] MEDS ORDERED: NITROGLYCERIN SL TABS 0.4 MG TAB SUBLINGUAL PRN (10:28)
[2018-03-24] MEDS: PANTOPRAZOLE 40 MG TABLET PO SCH (12:58)
[2018-03-24] MEDS ORDERED: ALBUTEROL NEBULIZED 2.5 MG/3 ML INHALATION PRN (13:09)
[2018-03-24] MEDS ORDERED: SENNOSIDES-DOCUSATE SODIUM 1 EACH TAB PO PRN (13:09)
[2018-03-24] MEDS ORDERED: LIDOCAINE-PRILOCAINE 2.5-2.5% CREAM 5 GM TUBE TOPICAL PRN (13:09)
[2018-03-24] MEDS ORDERED: DEXAMETHASONE ORAL 4 MG/ML VIAL PO PRN (13:09)
--- NOTE | 2018-03-24 13:13 | P.HPIM ---
History of Present Illness 82-year-old pleasant female came in with complaints of epigastric abdominal discomfort and indigestion symptoms moderate resolved in 5 minutes. Patient does have history of gastric surgery reflux disease does take Protonix. Later in the day it came back again because of which is concerning came to ER and patient had also had radiation of the pain second time and she had epigastric abdominal discomfort to the left arm. Patient denied any diaphoresis pain is not related to food patient started having pain when she woke up patient's pain is nonpleuritic. EKG showed significant Q waves in anterior leads. No acute ST -T wave changes. Troponin is negative patient is admitted to rule out acute coronary syndromes. Cardiology is consulted. Patient does have significant history in the past history is consistent with atrial fibrillation, scleroderma , patient is on anticoagulation with Eliquis at home. Review of Systems REVIEW OF SYSTEMS: CONSTITUTIONAL: No fever, no malaise, no fatigue. HEENT: No recent visual problems or hearing problems. Denied any sore throat. CARDIOVASCULAR: No orthopnea, PND, no palpitations, no syncope. PULMONARY: No shortness of breath, no cough, no hemoptysis. GASTROINTESTINAL: No diarrhea, no nausea, no vomiting, . Normoactive bowel sounds. NEUROLOGICAL: No headaches, no weakness, no numbness. HEMATOLOGICAL: Denies any bleeding or petechiae. GENITOURINARY: Denies any burning micturition, frequency, or urgency. MUSCULOSKELETAL/RHEUMATOLOGICAL: Denies any joint pain, swelling, or any muscle pain. ENDOCRINE: Denies any polyuria or polydipsia. The rest of the 14-point review of systems is negative. Past Medical History Past Medical History: Atrial Fibrillation, Fibromyalgia, Hypertension, Myocardial Infarction (DC), Osteoarthritis (OA), Pneumonia, Pulmonary Embolus ( PE), Pulmonary Embolus (PE), Rheumatoid Arthritis (RA), Rheumatoid Arthritis (RA ), Skin Disorder, Skin Disorder Additional Past Medical History / Comment(s): Hx of frequent bladder infections , sjogren's syndrome, bursitis, vasculitis, R leg calf wound, allergies, silent mi."superficial blood clot rt leg". Last Myocardial Infarction Date:: 2002 History of Any Multi-Drug Resistant Organisms: MRSA Date of last positivie culture/infection: 11-02-17 MDRO Source:: Right leg wound Past Surgical History: Adenoidectomy, Appendectomy, Back Surgery, Bladder Surgery, Cholecystectomy, Heart Catheterization With Stent, Tonsillectomy Additional Past Surgical History / Comment(s): eligio hand sx trigger finger sx Past Anesthesia/Blood Transfusion Reactions: No Reported Reaction Additional Past Anesthesia/Blood Transfusion Reaction / Comment(s): clausterphobia Date of Last Stent Placement:: 2008 Past Psychological History: Anxiety Additional Psychological History / Comment(s): pt lives with daughter satinder in a single story home that has 2 porch steps.1 pet cat. pt is independant but has a cane/walker/bsc if needed.has a cleaning/chore person from [employer] on [address]. Smoking Status: Former smoker Past Alcohol Use History: Occasional Additional Past Alcohol Use History / Comment(s): quit smoking 1977, started smoking age 16 Past Drug Use History: None Reported - Past Family History Father Family Medical History: Cancer Additional Family Medical History / Comment(s): colon cancer 40s Mother Family Medical History: Cancer Medications and Allergies Home Medications Medication Instructions Recorded Confirmed Type ALPRAZolam [Xanax] 0.25 mg PO HS 04/30/14 03/24/18 History Loratadine [Claritin] 10 mg PO BID 04/30/14 03/24/18 History Pravastatin Sodium [Pravachol] 20 mg PO HS 04/30/14 03/24/18 History cycloSPORINE 0.05% OPHTH SOLN 1 drop BOTH EYES BID 04/30/14 03/24/18 History [Restasis] Mag Carb/Aluminum Hydrox/Algin 30 ml PO QID PRN 05/21/14 03/24/18 History [Gaviscon Liquid] Melatonin 10 mg PO HS 08/26/15 03/24/18 History Acetaminophen [Tylenol Arthritis 1,300 mg PO BID 01/23/16 03/24/18 History 8-hr] Albuterol Sulfate [Proair Hfa] 2 puff INHALATION RT-QID PRN 01/23/16 03/24/18 History Sennosides-Docusate Sodium 1 tab PO DAILY PRN 01/23/16 03/24/18 History [Senokot-S] DULoxetine HCL [Cymbalta] 60 mg PO HS 05/16/17 03/24/18 History Dexamethasone [Decadron Intensol 0.5 mg MUCOUS MEM TID PRN 05/16/17 03/24/18 History Oral Solution] Fluticasone Nasal [place] [Flonase 2 spr EA NOSTRIL DAILY 05/16/17 03/24/18 History Nasal [place]] Lidocaine-Prilocaine Cream [Emla 1 applic TOPICAL QID PRN 05/16/17 03/24/18 History Cream 2.5%/2.5%] Multivitamins, Thera [Multivitamin 1 tab PO DAILY@1200 05/16/17 03/24/18 History (formulary)] Spironolactone [Aldactone] 25 mg PO DAILY 06/19/17 03/24/18 History Amiodarone [Cordarone] 200 mg PO HS 10/31/17 03/24/18 History Biotin 5,000 mcg PO DAILY 10/31/17 03/24/18 History Fish Oil/Dha/Epa [Fish Oil 1,200 1 cap PO DAILY@1200 10/31/17 03/24/18 History mg Fish Oil] Methadone [Dolophine] 5 mg PO TID 10/31/17 03/24/18 History Apixaban [Eliquis] 2.5 mg PO BID 03/24/18 03/24/18 History Metoprolol Succinate (ER) [Toprol 50 mg PO DAILY 03/24/18 03/24/18 History Xl] P Col-Rite 1 tab PO DAILY 03/24/18 03/24/18 History Pantoprazole Sodium [Protonix] 20 mg PO DAILY 03/24/18 03/24/18 History Theracran 36 mg PO HS 03/24/18 03/24/18 History Allergies Allergy/AdvReac Type Severity Reaction Status Date / Time levofloxacin [From Levaquin] Allergy Unknown Verified 03/24/18 11:38 morphine Allergy Itching Verified 03/24/18 11:38 nickel Allergy REDNESS OF Verified 03/24/18 11:38 SKIN AND BLISTERING oxycodone HCl [From Percodan] Allergy Itching Verified 03/24/18 11:38 oxycodone terephthalate Allergy Itching Verified 03/24/18 11:38 [From Percodan] amoxicillin [Amoxicillin] AdvReac Diarrhea Verified 03/24/18 11:38 calcium carbonate AdvReac Rapid Verified 03/24/18 11:38 [From Salagen] Heart Rate cephalexin monohydrate AdvReac Unknown Verified 03/24/18 11:38 [From Keflex] codeine AdvReac Nausea & Verified 03/24/18 11:38 Vomiting magnesium [From Salagen] AdvReac Rapid Verified 03/24/18 11:38 Heart Rate methotrexate AdvReac NERVE Verified 03/24/18 11:38 DAMAGE TO HANDS AND FEET pilocarpine HCl AdvReac Rapid Verified 03/24/18 11:38 [From Salagen] Heart Rate pseudoephedrine HCl AdvReac Nausea Verified 03/24/18 11:38 [From Sudafed] Sulfa (Sulfonamide AdvReac Nausea & Verified 03/24/18 11:38 Antibiotics) Vomiting valacyclovir HCl AdvReac Unknown Verified 03/24/18 11:38 [From Valtrex] Physical Exam Vitals: Vital Signs Temp Pulse Pulse Resp BP BP Pulse Ox 03/24/18 12:14 98 F 59 L 16 149/70 99 03/24/18 11:20 56 L 16 163/68 96 03/24/18 10:00 54 L 16 155/65 96 03/24/18 08:56 97.7 F 55 L 16 146/67 94 L Intake and Output 03/23/18 03/24/18 03/24/18 22:59 06:59 14:59 Other: Weight 57.1 kg PHYSICAL EXAMINATION: GENERAL: The patient is alert and oriented x3, not in any acute distress. Well developed, well nourished. HEENT: Pupils are round and equally reacting to light. EOMI. No scleral icterus. No conjunctival pallor. Normocephalic, atraumatic. No pharyngeal erythema. No thyromegaly. CARDIOVASCULAR: S1 and S2 present. No murmurs, rubs, or gallops. PULMONARY: Chest is clear to auscultation, no wheezing or crackles. ABDOMEN: Soft, nontender, nondistended, normoactive bowel sounds. No palpable organomegaly. MUSCULOSKELETAL: No joint swelling or deformity. EXTREMITIES: No cyanosis, clubbing, or pedal edema. NEUROLOGICAL: Gross neurological examination did not reveal any focal deficits. SKIN: No rashes. Results CBC & Chem 7: 03/24/18 09:00 03/24/18 09:00 Labs: Abnormal Lab Results - Last 24 Hours (Table) 03/24/18 03/24/18 03/24/18 Range/Units 09:00 09:00 09:00 MCHC 30.8 L (31.0-37.0) g/dL RDW 15.9 H (11.5-15.5) % Potassium 5.2 H (3.5-5.1) mmol/L BUN 32 H (7-17) mg/dL AST 71 H (14-36) U/L Total Creatine Kinase 164 H (30-135) U/L CK-MB (CK-2) 3.2 H* (0.0-2.4) ng/mL Albumin 3.3 L (3.5-5.0) g/dL Thrombosis Risk Factor Assmnt - Choose All That Apply Any of the Below Risk Factors Present?: Yes Each Risk Factor Represents 3 Points: Age 75 years or older Thrombosis Risk Factor Assessment Total Risk Factor Score: 3 Thrombosis Risk Factor Assessment Level: Moderate Risk Assessment and Plan Plan: Chest pain: Atypical nature probably related to gastritis or gastroesophageal reflux disease patient's Protonix will be increased to 40 twice a day. We will also rule out a concurrent syndromes cardiology was consulted will obtain 2 more sets of troponins and EKGs. 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 For above-mentioned chronic medical problems patient will be resumed and continued on heparin home medications
[2018-03-24 16:13] LABS: Creatine Kinase 191 U/L (30-135)
[2018-03-24 16:27] LABS: Creatine Kinase MB <0.2 ng/mL (0.0-2.4); Troponin I <0.012 ng/mL (0.000-0.034)
[2018-03-24] MEDS: ACETAMINOPHEN TAB 325 MG TAB PO SCH ×2 (17:42→21:10)
[2018-03-24] MEDS ORDERED: PRAVASTATIN SODIUM 20 MG TAB PO SCH (21:00)
[2018-03-24] MEDS ORDERED: METOPROLOL SUCCINATE (ER) 100 MG TAB.ER.24H PO SCH (21:00)
[2018-03-24] MEDS ORDERED: APIXABAN 5 MG TAB PO SCH (21:00)
[2018-03-24] MEDS: ALPRAZolam 0.25 MG TAB PO SCH (21:10)
[2018-03-24] MEDS: LORATADINE 10 MG TAB PO SCH (21:11)
[2018-03-24] MEDS: cycloSPORINE 0.05% OPHTH 0.4 ML DROPERETTE BOTH EYES SCH (21:11)
[2018-03-24] MEDS: APIXABAN 2.5 MG TABLET PO SCH (21:11)
[2018-03-24] MEDS: MELATONIN 5 MG TABLET PO SCH (21:11)
[2018-03-24] MEDS: AMIODARONE 200 MG TAB PO SCH (21:11)
[2018-03-24] MEDS: DULoxetine HCL 60 MG CAPSULE.DR PO SCH (21:11)
[2018-03-24] MEDS: PRAVASTATIN SODIUM 40 MG TAB PO SCH (21:12)
[2018-03-24] MEDS: METHADONE 5 MG TAB PO SCH (21:13)
[2018-03-24 21:51] LABS: Creatine Kinase 198 U/L (30-135)
[2018-03-24 22:04] LABS: Creatine Kinase MB 0.8 ng/mL (0.0-2.4); Troponin I <0.012 ng/mL (0.000-0.034)
[2018-03-25 02:27] LABS: Cholesterol 114 mg/dL (<200); HDL Cholesterol 34 mg/dL (40-60); LDL Cholesterol,Calculated 62 mg/dL (0-99); Triglycerides 88 mg/dL (<150)
[2018-03-25] MEDS: PANTOPRAZOLE 40 MG TABLET PO SCH (06:12)
[2018-03-25] MEDS: APIXABAN 2.5 MG TABLET PO SCH (08:45)
[2018-03-25] MEDS: ACETAMINOPHEN TAB 325 MG TAB PO SCH ×3 (08:46→17:31)
[2018-03-25] MEDS: METHADONE 5 MG TAB PO SCH ×2 (08:46→20:52)
[2018-03-25] MEDS: METOPROLOL SUCCINATE (ER) 50 MG TAB.ER.24H PO SCH (08:46)
[2018-03-25] MEDS: cycloSPORINE 0.05% OPHTH 0.4 ML DROPERETTE BOTH EYES SCH ×2 (08:47→20:52)
[2018-03-25] MEDS: FLUTICASONE 50MCG/SPRAY NASAL 16GM EA NOSTRIL SCH (08:47)
[2018-03-25] MEDS: ASPIRIN 325 MG TAB PO SCH (08:47)
[2018-03-25] MEDS ORDERED: SPIRONOLACTONE 25 MG TAB PO SCH (09:00)
[2018-03-25] MEDS ORDERED: NON-FORMULARY DRUG (Fish Oil/Dha/Epa [Fish Oil 1,200 Mg Fish Oil] 1 CAP) PO SCH (12:00)
[2018-03-25 12:23] LABS: Calcium 9.1 mg/dL (8.4-10.2); Potassium 4.9 mmol/L (3.5-5.1)
--- NOTE | 2018-03-25 13:17 | P.PN ---
Subjective Patient was admitted for chest pain, rule out acute coronary syndromes cardiology is according stresses tomorrow. Constitutional: Denied any fatigue denied any fever. Cardio vascular: denied any chest pain, palpitations Gastrointestinal denied any nausea vomiting Pulmonary: Denied any shortness of breath cough Neurologic denied any new focal deficits Objective - Vital Signs Vital signs: Vital Signs Temp 97.2 F L 03/25/18 11:48 Pulse 54 L 03/25/18 11:48 Resp 16 03/25/18 11:48 BP 120/58 03/25/18 11:48 Pulse Ox 97 03/25/18 11:48 Intake & Output 03/24/18 03/25/18 03/25/18 18:59 06:59 18:59 Intake Total 420 20 170 Balance 420 20 170 Weight 57.1 kg 56.2 kg Intake: IV 20 0.9 20 Oral 420 170 Other: Voiding Method Toilet Toilet # Voids 2 - Exam PHYSICAL EXAMINATION: GENERAL: The patient is alert and oriented x3, not in any acute distress. Well developed, well nourished. HEENT: Pupils are round and equally reacting to light. EOMI. No scleral icterus. No conjunctival pallor. Normocephalic, atraumatic. No pharyngeal erythema. No thyromegaly. CARDIOVASCULAR: S1 and S2 present. No murmurs, rubs, or gallops. PULMONARY: Chest is clear to auscultation, no wheezing or crackles. ABDOMEN: Soft, nontender, nondistended, normoactive bowel sounds. No palpable organomegaly. MUSCULOSKELETAL: No joint swelling or deformity. EXTREMITIES: No cyanosis, clubbing, or pedal edema. NEUROLOGICAL: Gross neurological examination did not reveal any focal deficits. SKIN: No rashes. - Labs CBC & Chem 7: 03/24/18 09:00 03/25/18 11:42 Labs: Abnormal Lab Results - Last 24 Hours (Table) 03/24/18 03/24/18 03/24/18 Range/Units 09:00 15:41 21:13 BUN (7-17) mg/dL Total Creatine Kinase 191 H 198 H (30-135) U/L HDL Cholesterol 34 L (40-60) mg/dL 03/25/18 Range/Units 11:42 BUN 25 H (7-17) mg/dL Total Creatine Kinase (30-135) U/L HDL Cholesterol (40-60) mg/dL Assessment and Plan Plan: Chest pain: Atypical nature probably related to gastritis or gastroesophageal reflux disease patient's Protonix will be increased to 40 twice a day. 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 For above-mentioned chronic medical problems patient will be resumed and continued on heparin home medications
[2018-03-25] MEDS ORDERED: ALPRAZolam 0.25 MG TAB PO PRN (14:20)
--- NOTE | 2018-03-25 17:13 | CONS ---
CONSULTATION Cande Douglas is 82-year-old patient who sees Dr. Ross in the outpatient setting. She came into the hospital with complaints of having some chest discomfort. She says the pain started earlier, felt like some indigestion in the epigastric area. Then she had some radiation to the left shoulder. She has a history of HI in 2002, details of which are not available and she had a stress test about a year ago that was normal according to the patient. She has other medical problems in the form of Sjogren syndrome, hypercholesterolemia, stable CAD, hypertension. PAST MEDICAL HISTORY: Remarkable for a paroxysmal atrial fibrillation, fibromyalgia, hypertension, hyperlipidemia, previous history of pulmonary embolism, rheumatoid arthritis. She underwent stenting in 2002, details unavailable. The patient is status post some hand surgery with some trigger finger surgery as well. SOCIAL HISTORY: Patient has quit smoking several years ago. Does not consume alcohol. MEDICATIONS: At home include Xanax, loratadine, Pravastatin 20 mg daily. Acetaminophen, albuterol inhaler, she also takes Aldactone 25 mg daily, amiodarone 200 mg daily, Eliquis 2.5 mg b.i.d., methadone, Toprol-XL 50 mg daily and also takes Protonix. ALLERGIES: SHE IS ALLERGIC TO LEVAQUIN, OXYCODONE, MORPHINE, CEPHALEXIN, METHOTREXATE, AND ALSO SULFA. EXAMINATION: Blood pressure is 140/80, pulse rate is about 60 per minute, regular. HEENT: Unremarkable. Fundus was not examined by me. NECK: Supple. There is no JVD. I do not hear a carotid bruit. HEART exam is S1, S2 heard normally. There is no significant murmur. LUNGS revealed decent air entry. ABDOMEN is soft, nontender. EXTREMITIES: Lower extremities reveal diminished pulses. No edema. CENTRAL NERVOUS SYSTEM is normal. LABORATORY DATA: Revealed a potassium is 5.2. A EKG revealed sinus mechanism, sinus bradycardia, first- degree AV block, nonspecific IVCD, leftward axis. LABORATORY DATA: Reveals that potassium is elevated at 5.2. Troponins are normal. BNP is normal. IMPRESSION: 1. Atypical chest pain in a patient with known previous stenting, details unavailable. 2. Paroxysmal atrial fibrillation, maintaining sinus rhythm on Eliquis. 3. Hypertension. 4. Hyperlipidemia. 5. History of fibromyalgia. RECOMMENDATIONS: I am recommending that we will check echocardiogram. Hold Aldactone in view of hyperkalemia and see how she does with increased activity. If she has no further symptoms, I will review the office stress test information and then make specific recommendations. For now we will increase activity and check echocardiogram and based on clinical course, we will make further recommendations. Thank you very much for the consult. MMNUBIAL / IJN: [id number] /
[2018-03-25] MEDS: AMIODARONE 200 MG TAB PO SCH (20:51)
[2018-03-25] MEDS: ALPRAZolam 0.25 MG TAB PO SCH (20:51)
[2018-03-25] MEDS: DULoxetine HCL 60 MG CAPSULE.DR PO SCH (20:51)
[2018-03-25] MEDS: PRAVASTATIN SODIUM 40 MG TAB PO SCH (20:51)
[2018-03-25] MEDS: LORATADINE 10 MG TAB PO SCH (20:51)
[2018-03-25] MEDS: MELATONIN 5 MG TABLET PO SCH (23:22)
[2018-03-26] MEDS: ACETAMINOPHEN TAB 325 MG TAB PO SCH ×2 (01:36→07:41)
[2018-03-26 06:18] LABS: Anisocytosis Slight; Basophils % (A) 1 %; Eosinophils # (A) 0.3 k/uL (0-0.7); Eosinophils % (A) 4 %; HGB 11.2 gm/dL (11.4-16.0); Hypochromasia Slight; Lymphocytes # (A) 1.3 k/uL (1.0-4.8); Lymphocytes % (A) 16 %; MCH 28.8 pg (25.0-35.0); MCV 92.9 fL (80.0-100.0); Mean Platelet Volume 7.5; Monocytes # (A) 0.7 k/uL (0-1.0); Monocytes % (A) 8 %; Neutrophils # (A) 5.7 k/uL (1.3-7.7); Neutrophils % (A) 69 %; Platelet Count 233 k/uL (150-450); RBC 3.88 m/uL (3.80-5.40); RDW 16.3 % (11.5-15.5); WBC 8.3 k/uL (3.8-10.6)
[2018-03-26 06:28] LABS: Calcium 9.1 mg/dL (8.4-10.2); Potassium 4.4 mmol/L (3.5-5.1)
[2018-03-26] MEDS: FLUTICASONE 50MCG/SPRAY NASAL 16GM EA NOSTRIL SCH (07:41)
[2018-03-26] MEDS: ASPIRIN 325 MG TAB PO SCH (07:42)
[2018-03-26] MEDS: METHADONE 5 MG TAB PO SCH (07:42)
[2018-03-26] MEDS: cycloSPORINE 0.05% OPHTH 0.4 ML DROPERETTE BOTH EYES SCH (07:43)
[2018-03-26] MEDS: PANTOPRAZOLE 40 MG TABLET PO SCH (07:43)
[2018-03-26] MEDS ORDERED: REGADENOSON 0.4 MG/5 ML SYRINGE IV ONE (08:15)
[2018-03-26] MEDS ORDERED: AMINOPHYLLINE 500 MG/20 ML VIAL IV PRN (08:15)
[2018-03-26] MEDS: METOPROLOL SUCCINATE (ER) 50 MG TAB.ER.24H PO SCH (11:31)
--- NOTE | 2018-03-26 11:33 | NM ---
EXAMINATION TYPE: NM stress lexiscan cardiolite DATE OF EXAM: 03/26/2018 COMPARISON: NONE HISTORY: Chest pain TECHNIQUE: After the intravenous administration of 10.2 mCi Tc 99m Sestamibi - Cardiolite resting SP ECT images acquired 50 minutes post injection. The patient received 0.4mg Lexiscan, 25.7 mCi Tc 99m Sestamibi - Stress images obtained [address] injection FINDINGS: Review of stress and rest SPECT images demonstrates no reversible perfusion abnormality. Physiologic apical thinning is noted as a fixed defect at the ventricular apex. Gated analysis shows normal wall motion with an estimated left ventricular ejection fraction of 71 %. TID is within normal limits ida culated at 1.05. IMPRESSION: 1. No scintigraphic evidence for reversible ischemia. 2. Estimated left ventricular ejection fraction of 71%.
[2018-03-26 12:02] VITALS: PULSE 60; RESP 18
[2018-03-26 12:03] VITALS: BP 151/67; TEMP 96.8
--- NOTE | 2018-03-26 13:12 | P.PN ---
Subjective Progress Note Date: 03/26/18 03/23/2018-Per Dr. Salmon 82-year-old pleasant female came in with complaints of epigastric abdominal discomfort and indigestion symptoms moderate resolved in 5 minutes. Patient does have history of gastric surgery reflux disease does take Protonix. Later in the day it came back again because of which is concerning came to ER and patient had also had radiation of the pain second time and she had epigastric abdominal discomfort to the left arm. Patient denied any diaphoresis pain is not related to food patient started having pain when she woke up patient's pain is nonpleuritic. EKG showed significant Q waves in anterior leads. No acute ST -T wave changes. Troponin is negative patient is admitted to rule out acute coronary syndromes. Cardiology is consulted. Patient does have significant history in the past history is consistent with atrial fibrillation, scleroderma , patient is on anticoagulation with Eliquis at home. 03/26/2018 Patient seen and examined at the bedside on rounds with Dr. Brown. Patient states she is feeling well this morning. Denies chest pain or pressure. Denies shortness of breath. Denies nausea or vomiting. Denies heartburn. Patient is NPO. She is scheduled for stress test this morning. Aldactone was held per cardiology secondary to hyperkalemia, which has resolved. Potassium 4.4. Patient takes Eliquis at home for afib. This has been discontinued during hospitalization per cardiology but exact reason is unknown at this time. Objective - Vital Signs Vital signs: Vital Signs Temp 97 F L 03/26/18 07:51 Pulse 56 L 03/26/18 07:53 Resp 16 03/26/18 07:53 BP 155/68 03/26/18 07:51 Pulse Ox 98 03/26/18 07:51 Intake & Output 03/25/18 03/26/18 03/26/18 18:59 06:59 18:59 Intake Total 960 200 Balance 960 200 Weight 56.5 kg Intake: Oral 960 200 Other: Voiding Method Toilet Toilet Toilet # Voids 3 1 - Constitutional Constitutional Comment(s): 82-year-old female in no acute distress General appearance: Present: average body habitus - EENT Eyes: Present: EOMI, PERRLA ENT: Present: hearing grossly normal - Neck Neck: Present: normal ROM - Respiratory Respiratory: bilateral: CTA - Cardiovascular Rhythm: regular Heart sounds: normal: S1, S2 - Gastrointestinal General gastrointestinal: Present: normal bowel sounds - Integumentary Integumentary Comment(s): Chronic wound to right lower extremity. Patient follows with vascular in the wound center. Integumentary: Present: normal. Absent: jaundiced, pale - Neurologic Neurologic: Present: CNII-XII intact - Musculoskeletal Musculoskeletal: Present: strength equal bilaterally - Psychiatric Psychiatric: Present: A&O x's 3, appropriate affect, intact judgment & insight - Labs CBC & Chem 7: 03/26/18 05:52 03/26/18 05:52 Labs: Abnormal Lab Results - Last 24 Hours (Table) 03/25/18 03/26/18 03/26/18 Range/Units 11:42 05:52 05:52 Hgb 11.2 L (11.4-16.0) gm/dL RDW 16.3 H (11.5-15.5) % BUN 25 H 21 H (7-17) mg/dL Assessment and Plan Plan: ASSESSMENT: Chest pain, epigastric, rule out acute coronary syndrome Paroxysmal atrial fibrillation, maintained on long-term anticoagulation Hyperkalemia, resolved History of coronary artery disease with previous stent placement Hypertension History of pulmonary embolus History of rheumatoid arthritis Osteoarthritis PLAN: Cardiology on consult. Appreciate recommendations and input Patient scheduled for stress test today Resume anticoagulation and Aldactone when appropriate with cardiology Home meds as appropriate Monitor labs Monitor vital signs and address as appropriate Discharge planning: Patient to return home when stable Further recommendations pending patient's course Nurse practitioner note has been reviewed by physician. Signing provider agrees with the documented findings, assessment, and plan of care.
--- NOTE | 2018-03-26 13:13 | P.DS ---
Providers Date of admission: 03/24/18 11:01 Expected date of discharge: 03/26/18 Attending physician: Cirilo Brown Consults: 03/24/18 10:28 Consult Physician Urgent Consulting Provider: Ana Patrick Consult Reason/Comments: chest pain Do you want consulting provider notified?: Yes Primary care physician: Cirilo Brown [facility] Course: 03/23/2018-Per Dr. Salmon 82-year-old pleasant female came in with complaints of epigastric abdominal discomfort and indigestion symptoms moderate resolved in 5 minutes. Patient does have history of gastric surgery reflux disease does take Protonix. Later in the day it came back again because of which is concerning came to ER and patient had also had radiation of the pain second time and she had epigastric abdominal discomfort to the left arm. Patient denied any diaphoresis pain is not related to food patient started having pain when she woke up patient's pain is nonpleuritic. EKG showed significant Q waves in anterior leads. No acute ST -T wave changes. Troponin is negative patient is admitted to rule out acute coronary syndromes. Cardiology is consulted. Patient does have significant history in the past history is consistent with atrial fibrillation, scleroderma , patient is on anticoagulation with Eliquis at home. 03/26/2018 0800-Patient seen and examined at the bedside on rounds with Dr. Brown. Patient states she is feeling well this morning. Denies chest pain or pressure. Denies shortness of breath. Denies nausea or vomiting. Denies heartburn. Patient is NPO. She is scheduled for stress test this morning. Aldactone was held per cardiology secondary to hyperkalemia, which has resolved. Potassium 4.4. Patient takes Eliquis at home for afib. This has been discontinued during hospitalization per cardiology but exact reason is unknown at this time. 1200-patient underwent stress test this morning which was negative for ischemia. She was cleared for discharge from a cardiac standpoint. She was deemed stable for discharge. She is to follow up on an outpatient basis with Dr. Brown. She is to resume her home medications. DISCHARGE DIAGNOSIS: Chest pain, epigastric, acute coronary syndrome ruled out, stress test negative for ischemia Paroxysmal atrial fibrillation, maintained on long-term anticoagulation Hyperkalemia, resolved History of coronary artery disease with previous stent placement Hypertension History of pulmonary embolus History of rheumatoid arthritis Osteoarthritis Nurse practitioner note has been reviewed by physician. Signing provider agrees with the documented findings, assessment, and plan of care. Patient Condition at Discharge: Stable Plan - Discharge Summary Discharge Rx Participant: No New Discharge Prescriptions: Continue cycloSPORINE 0.05% OPHTH SOLN [Restasis] 1 drop BOTH EYES BID Loratadine [Claritin] 10 mg PO BID ALPRAZolam [Xanax] 0.25 mg PO HS Pravastatin Sodium [Pravachol] 20 mg PO HS Mag Carb/Aluminum Hydrox/Algin [Gaviscon Liquid] 30 ml PO QID PRN PRN Reason: Indigestion Melatonin 10 mg PO HS Sennosides-Docusate Sodium [Senokot-S] 1 tab PO DAILY PRN PRN Reason: Constipation Albuterol Sulfate [Proair Hfa] 2 puff INHALATION RT-QID PRN PRN Reason: sob Acetaminophen [Tylenol Arthritis 8-hr] 1,300 mg PO BID Dexamethasone [Decadron Intensol Oral Solution] 0.5 mg MUCOUS MEM TID PRN PRN Reason: Sjogren's Syndrome DULoxetine HCL [Cymbalta] 60 mg PO HS Fluticasone Nasal [place] [Flonase Nasal [place]] 2 spr EA NOSTRIL DAILY Multivitamins, Thera [Multivitamin (formulary)] 1 tab PO DAILY@1200 Lidocaine-Prilocaine Cream [Emla Cream 2.5%/2.5%] 1 applic TOPICAL QID PRN PRN Reason: Pain Spironolactone [Aldactone] 25 mg PO DAILY Biotin 5,000 mcg PO DAILY Fish Oil/Dha/Epa [Fish Oil 1,200 mg Fish Oil] 1 cap PO DAILY@1200 Methadone [Dolophine] 5 mg PO TID Amiodarone [Cordarone] 200 mg PO HS Apixaban [Eliquis] 2.5 mg PO BID Metoprolol Succinate (ER) [Toprol XL] 50 mg PO DAILY P Col-Rite 1 tab PO DAILY Pantoprazole Sodium [Protonix] 20 mg PO DAILY Theracran 36 mg PO HS Discharge Medication List ALPRAZolam [Xanax] 0.25 mg PO HS 04/30/14 [History] Loratadine [Claritin] 10 mg PO BID 04/30/14 [History] Pravastatin Sodium [Pravachol] 20 mg PO HS 07/09/14 [History] cycloSPORINE 0.05% OPHTH SOLN [Restasis] 1 drop BOTH EYES BID 04/30/14 [History] Mag Carb/Aluminum Hydrox/Algin [Gaviscon Liquid] 30 ml PO QID PRN 05/21/14 [ History] Melatonin 10 mg PO HS 08/26/15 [History] Acetaminophen [Tylenol Arthritis 8-hr] 1,300 mg PO BID 01/23/16 [History] Albuterol Sulfate [Proair Hfa] 2 puff INHALATION RT-QID PRN 01/23/16 [History] Sennosides-Docusate Sodium [Senokot-S] 1 tab PO DAILY PRN 01/23/16 [History] DULoxetine HCL [Cymbalta] 60 mg PO HS 05/16/17 [History] Dexamethasone [Decadron Intensol Oral Solution] 0.5 mg MUCOUS MEM TID PRN [History] Fluticasone Nasal [place] [Flonase Nasal [place]] 2 spr EA NOSTRIL DAILY 05/16/17 [ History] Lidocaine-Prilocaine Cream [Emla Cream 2.5%/2.5%] 1 applic TOPICAL QID PRN 05/16 [History] Multivitamins, Thera [Multivitamin (formulary)] 1 tab PO DAILY@1200 05/16/17 [ History] Spironolactone [Aldactone] 25 mg PO DAILY 06/19/17 [History] Amiodarone [Cordarone] 200 mg PO HS 10/31/17 [History] Biotin 5,000 mcg PO DAILY 10/31/17 [History] Fish Oil/Dha/Epa [Fish Oil 1,200 mg Fish Oil] 1 cap PO DAILY@1200 10/31/17 [ History] Methadone [Dolophine] 5 mg PO TID 10/31/17 [History] Apixaban [Eliquis] 2.5 mg PO BID 03/24/18 [History] Metoprolol Succinate (ER) [Toprol XL] 50 mg PO DAILY 03/24/18 [History] P Col-Rite 1 tab PO DAILY 03/24/18 [History] Pantoprazole Sodium [Protonix] 20 mg PO DAILY 03/24/18 [History] Theracran 36 mg PO HS 03/24/18 [History] Follow up Appointment(s)/Referral(s): Chintan Ross MD [STAFF PHYSICIAN] - 04/19/18 4:00 pm Cirilo Brown DO [Primary Care Provider] - 03/30/18 9:20 am Patient Instructions/Handouts: Chest Pain (DC), Nuclear Stress Test (DC) Discharge Disposition: HOME SELF-CARE
--- NOTE | 2018-03-26 13:38 | ECHOF ---
Referral Reason:pain/shortness of breath MEASUREMENTS -------- HEIGHT: 154.9 cm WEIGHT: 56.2 kg BP: 132/63 IVSd: 1.2 cm (0.6 - 1.1) LVIDd: 3.5 cm (3.9 - 5.3) LVPWd: 1.2 cm (0.6 - 1.1) IVSs: 1.9 cm LVIDs: 1.6 cm LVPWs: 1.7 cm LAESV Index (A-L): 47.40 ml/m Ao Diam: 2.9 cm (2.0 - 3.7) AV Cusp: 1.9 cm (1.5 - 2.6) LA Diam: 3.9 cm (2.7 - 3.8) MV EXCURSION: 22.560 mm (> 18.000) MV EF SLOPE: 134 mm/s (70 - 150) EPSS: 1.6 cm MV E Terry: 1.17 m/s MV DecT: 223 ms MV A Terry: 0.34 m/s MV E/A Ratio: 3.48 RAP: 5.00 mmHg RVSP: 64.03 mmHg FINDINGS -------- Sinus rhythm. This was a technically good study. The left ventricular size is normal. There is mild concentric left ventricular hypertrophy. Overa ll left ventricular systolic function is normal with, an EF between 55 - 60 %. The right ventricle is normal in size and function. LA is severely dilated >40 ml/m2 The right atrium is normal in size. Aortic valve is trileaflet and is mildly thickened. The mitral valve leaflets are mildly thickened. Severe mitral regurgitation is present. Moderate tricuspid regurgitation present. There is moderate pulmonary hypertension. The right shiraz tricular systolic pressure, as measured by Doppler, is 64.03mmHg. There is no pulmonic regurgitation present. The aortic root size is normal. Normal inferior vena cava with normal inspiratory collapse consistent with estimated right atrial pre ssure of 5 mmHg. There is no pericardial effusion. CONCLUSIONS -------- 1. Sinus rhythm. 2. This was a technically good study. 3. The left ventricular size is normal. 4. There is mild concentric left ventricular hypertrophy. 5. Overall left ventricular systolic function is normal with, an EF between 55 - 60 %. 6. LA is severely dilated >40 ml/m2 7. Aortic valve is trileaflet and is mildly thickened. 8. The mitral valve leaflets are mildly thickened. 9. Severe mitral regurgitation is present. 10. Moderate tricuspid regurgitation present. 11. There is moderate pulmonary hypertension. 12. There is no pulmonic regurgitation present. 13. The aortic root size is normal. 14. Normal inferior vena cava with normal inspiratory collapse consistent with estimated right atrial pressure of 5 mmHg. 15. There is no pericardial effusion. [employer] INSPECTOR AND ADJUSTER: Lynette Sheridan RDCS
--- NOTE | 2018-03-26 14:23 | EST ---
EXERCISE STRESS DATE OF SERVICE: 03/26/2018 AGE: 82 SEX: F HT: 61" WT: 124 PROTOCOL: Lexiscan Cardiolite Stress Test HEART RATE REST: 56 BLOOD PRESSURE REST: 158/81 MAXIMUM HEART RATE ACHIEVED: 66 MAXIMUM BLOOD PRESSURE: 158/81 85% MPHR: 119 100% MPHR: 140 INDICATIONS: Chest pain. CLINICAL INFORMATION: Baseline rhythm is sinus mechanism, rate of 56, interventricular conduction delay. Baseline blood pressure 158/81 mmHg. Patient received an injection of Lexiscan. Electrocardiographic monitoring revealed no evidence of diagnostic ischemic ST deviation. Cardiolite was injected per protocol. CONCLUSION: 1. Nondiagnostic electrocardiograph stress testing. 2. Nuclear images will be reported separately. MMODL / IJN: [id number] /
--- NOTE | 2018-03-26 15:54 | P.PN ---
Subjective Progress Note Date: 03/26/18 This is an 82-year-old female patient who follows with Dr. Ross in the office , she presented to the hospital with symptoms of chest discomfort. Upon review of the office record, patient's last stress test was performed in June 2015. She was recommended today to undergo a Lexiscan stress test. Sandie scan stress test was negative for any reversible ischemia. From cardiology's perspective, patient may be able to be discharged home today. We will make her a follow-up appointment to see Dr. Ross in the office post discharge. Objective - Vital Signs Vital signs: Vital Signs Temp 96.8 F L 03/26/18 12:00 Pulse 60 03/26/18 12:00 Resp 18 03/26/18 12:00 BP 151/67 03/26/18 12:00 Pulse Ox 96 03/26/18 12:00 Intake & Output 03/25/18 03/26/18 03/26/18 18:59 06:59 18:59 Intake Total 960 200 Balance 960 200 Weight 56.5 kg Intake: Oral 960 200 Other: Voiding Method Toilet Toilet Toilet # Voids 3 1 - Exam PHYSICAL EXAMINATION: GENERAL: 82-year-old female in no apparent distress at the time of my examination HEENT: Head is atraumatic, normocephalic. Pupils equal, round. Sclera anicteric. Conjunctiva are clear. Mucous membranes of the mouth are moist. Neck is supple. There is no elevated jugular venous pressure.] bruit is heard. HEART EXAMINATION: Heart S1, S2 normal. No murmur or gallop heard. CHEST EXAMINATION: Lungs are clear to auscultation and precussion. No chest wall tenderness is noted on palpation or with deep breathing. ABDOMEN: Soft, nontender. Bowel sounds are heard. No organomegaly noted. EXTREMITIES: 2+ peripheral pulses with no evidence of peripheral edema and no calf tenderness noted. NEUROLOGIC patient is awake, alert and oriented -3. . - Labs CBC & Chem 7: 03/26/18 05:52 03/26/18 05:52 Labs: Abnormal Lab Results - Last 24 Hours (Table) 03/26/18 03/26/18 Range/Units 05:52 05:52 Hgb 11.2 L (11.4-16.0) gm/dL RDW 16.3 H (11.5-15.5) % BUN 21 H (7-17) mg/dL Assessment and Plan Plan: Assessment and plan #1 chest pain, status post Sandie scan stress test which is negative for any reversible ischemia #2 paroxysmal atrial fibrillation #3 known history of coronary artery disease with prior stent placement #4 history of rheumatoid arthritis #5 history of PE #6 hypertension From cardiology's perspective, patient may be able to be discharged home, we'll make her a follow-up appointment to see Dr. Murdock in the office post discharge. DNP note has been reviewed, I agree with a documented findings and plan of care. Patient was seen and examined.
== END 2018-03-26 12:59 | disposition home or self-care (01) ==
LOC: EC 08:54 → 3OBS 11:01 → 6SEL 17:20
PROVIDERS: ADMIT Family Medicine; ATTEND Family Medicine
DX: R07.89 Other chest pain (principal); R10.13 Epigastric pain; I48.0 Paroxysmal atrial fibrillation; E87.5 Hyperkalemia; I25.10 Atherosclerotic heart disease of native coronary artery without angina pectoris; Z95.5 Presence of coronary angioplasty implant and graft; I11.9 Hypertensive heart disease without heart failure; M35.00 Sjogren syndrome, unspecified; M06.9 Rheumatoid arthritis, unspecified; M19.90 Unspecified osteoarthritis, unspecified site; E78.00 Pure hypercholesterolemia, unspecified; F41.9 Anxiety disorder, unspecified; K21.9 Gastro-esophageal reflux disease without esophagitis; M79.7 Fibromyalgia; I25.2 Old myocardial infarction; Z79.01 Long term (current) use of anticoagulants; Z79.891 Long term (current) use of opiate analgesic; Z79.51 Long term (current) use of inhaled steroids; Z79.52 Long term (current) use of systemic steroids; Z79.899 Other long term (current) drug therapy; Z88.0 Allergy status to penicillin; Z88.1 Allergy status to other antibiotic agents; Z88.2 Allergy status to sulfonamides; Z88.3 Allergy status to other anti-infective agents; Z88.5 Allergy status to narcotic agent; Z88.8 Allergy status to other drugs, medicaments and biological substances; Z91.048 Other nonmedicinal substance allergy status; Z87.01 Personal history of pneumonia (recurrent); Z87.891 Personal history of nicotine dependence; Z86.711 Personal history of pulmonary embolism; Z86.718 Personal history of other venous thrombosis and embolism; Z87.440 Personal history of urinary (tract) infections; Z86.14 Personal history of Methicillin resistant Staphylococcus aureus infection; Z90.49 Acquired absence of other specified parts of digestive tract; Z80.0 Family history of malignant neoplasm of digestive organs
CPT/HCPCS: 99285 ×2; 36415; 93017; 93306; 97166; 83880; 80061; 80053; 80048 ×2; 82550; 82553; 83690; 83735; 84484; 85025 ×2; 85610; 85730; 71046; 78452; G0378 ×3; A9500; S0109 ×3; J2785

== ENCOUNTER → 2018-06-02 | Outpatient (CLI) | payer MEDICARE ==
--- NOTE | 2018-06-03 12:06 | MR ---
EXAMINATION TYPE: MR brain wo con DATE OF EXAM: 06/02/2018 COMPARISON: None HISTORY: Memory loss / Tremors CONTRAST: Performed utilizing 0 mL intravenous Gadavist gadolinium contrast. TECHNIQUE: Multiplanar, multiecho imaging on a 3.0 Indy magnet is performed through the brain. Stud y is performed within 24 hours of arrival to the hospital. The craniovertebral junction is normal. The pituitary is normal. Diffusion-weighted imaging is performed. No abnormal hyperintensity is present to suggest an acute i ntracranial infarct or acute ischemic change. Periventricular white matter hyperintensity is present compatible with microvascular ischemic change. Some cortical hyperintensities present on the right parietal lobe. This is likely old ischemic reynoso e. Series 501 image 17. Ventricles and sulci are prominent for the patient age. IMPRESSIONS: 1. Age-related atrophy with periventricular white matter ischemic changes. 2. Some cortical old ischemic change may be along the right parietal lobe.
== END | disposition home or self-care (01) ==
LOC: RADMRIMAIN 10:49
PROVIDERS: ATTEND Psychiatry & Neurology Neurology
DX: G31.1 Senile degeneration of brain, not elsewhere classified (principal); I67.82 Cerebral ischemia
CPT/HCPCS: 70551

== ENCOUNTER → 2018-06-27 | Outpatient (CLI) | payer MEDICARE | END | disposition home or self-care (01) | LOC: RADUSWWP 12:05 | PROVIDERS: ATTEND Podiatrist Foot & Ankle Surgery | DX: I73.9 Peripheral vascular disease, unspecified (principal) | CPT/HCPCS: 93922 ==

== ENCOUNTER → 2018-08-13 | Outpatient (CLI) | payer MEDICARE ==
--- NOTE | 2018-08-13 23:08 | CT ---
EXAMINATION TYPE: High-resolution CT chest DATE OF EXAM: 08/13/2018 COMPARISON: 05/16/2017 HISTORY: 83-year-old female Interstitial lung disease. TECHNIQUE: Contiguous high resolution axial scanning of the chest without IV contrast. One millimeter slice thickness with 1 cm gap was utilized for HRCT protocol. Both supine and prone imaging was perf ormed. CT DLP: 266.1 mGycm Automated exposure control for dose reduction was used. FINDINGS: Right upper limits of normal in size with interval resolution of patient's previous pericardial effus ion. Extensive coronary vessel calcifications are present. Ascending aorta borderline ectatic at 3.5 cm. [id number] atherosclerotic arch calcifications wi th conventional arch vessel branching anatomy. Allowing for HRCT technique, no thoracic lymphadenopathy is seen. Large caliber to the main right and left pulmonary arteries are 2.9 and 2.8 cm, respectively, suggest ing underlying pulmonary hypertension. There is underlying mild emphysematous change with a subpleural reticulation throughout and subpleura l microcystic change. Coarse reticular densities are greater in the lower lungs with mild traction br onchiectasis. No traci honeycombing is seen. There is a new 2.3 cm subpleural pulmonary nodule at the posterior left lower lobe and neoplasm is no t excluded. Possible aneurysmal left ventricular apex, reference axial image 24 series 3. Somewhat patulous appearance to the thoracic esophagus. Extensive metal hardware artifact from patien t's spinal fusion limiting assessment of the upper abdomen. Bones: Lower thoracolumbar fusion hardware. IMPRESSION: 1. 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 THERE IS MORE COARSE FIBROSIS IN THE LOWER MIRIAM G AND ASSOCIATED MILD BASILAR BRONCHIECTASIS. CORRELATE FOR POSSIBLE SEQUELA OF RECURRENT INFECTION O R CHRONIC INFLAMMATION OR OTHER ETIOLOGIES SUCH FIBROTIC NSIP. 2. NOTE THAT A 2.3 CM SUBPLEURAL PULMONARY NODULE AT THE POSTERIOR LEFT LOWER LOBE IS NEW FROM 017. LUNG CANCER NOT EXCLUDED. CONSIDER CONTRAST ENHANCED CT AND/OR PET CT EVALUATION. 3. PULMONARY ARTERIAL HYPERTENSION. POSSIBLE LEFT VENTRICULAR APICAL ANEURYSM WHICH WOULD SUGGEST DANNI OR APICAL INFARCT.
== END ==
LOC: RADCTMAIN 15:54
PROVIDERS: ATTEND Internal Medicine
DX: J44.9 Chronic obstructive pulmonary disease, unspecified (principal); J84.10 Pulmonary fibrosis, unspecified; R91.1 Solitary pulmonary nodule; I27.21 Secondary pulmonary arterial hypertension; Z88.0 Allergy status to penicillin; Z88.2 Allergy status to sulfonamides; Z88.5 Allergy status to narcotic agent; Z88.8 Allergy status to other drugs, medicaments and biological substances
CPT/HCPCS: 71250

== ENCOUNTER → 2018-10-24 | Outpatient (CLI) | payer MEDICARE ==
[2018-10-24 19:21] LABS: Albumin 3.9 g/dL (3.80-4.90); Albumin/Globulin Ratio 1.86 (1.20-2.10); Anion Gap 8.3 mmol/L (4.00-12.00); Calcium 9.3 mg/dL (8.7-10.3); Carbon Dioxide 25.7 mmol/L (21.6-31.8); Globulin 2.1 g/dL (1.6-3.3); Potassium 4.8 mmol/L (3.5-5.5); Total Bilirubin 0.3 mg/dL (0.2-1.2)
== END ==
LOC: LABWHC1 12:48
PROVIDERS: ATTEND Internal Medicine Clinical Cardiac Electrophysiology
DX: I48.0 Paroxysmal atrial fibrillation (principal); Z79.899 Other long term (current) drug therapy
CPT/HCPCS: 36415; 80053; 84443

== ENCOUNTER → 2018-12-27 | Outpatient (CLI) | payer MEDICARE ==
--- NOTE | 2018-12-28 05:02 | CT ---
EXAMINATION TYPE: High-resolution CT chest DATE OF EXAM: 12/27/2018 COMPARISON: 08/13/2018 and 05/16/2017 HISTORY: 83-year-old female Pulmonary nodule. TECHNIQUE: Contiguous high-resolution axial scanning of the chest without IV contrast. 1 mm slice thi ckness with 1 mm gap per HRCT protocol. Both prone and supine imaging was performed. CT DLP: 107 mGycm Automated exposure control for dose reduction was used. FINDINGS: Heart borderline enlarged without pericardial effusion. Mitral annular calcifications as well as exte nsive coronary vessel calcifications are present. Moderate atherosclerotic calcifications throughout with conventional arch vessel branching anatomy. N ormal caliber to the aorta. Large caliber to the main right and left pulmonary arteries that 2.9 cm each suggesting underlying pu lmonary artery hypertension. Stable borderline sized 9 mm AP window lymph node. Limited assessment for lymphadenopathy due to HRCT technique. Enlarging posterior left lower lobe mass now measuring 4.2 cm versus 2.3 cm on 08/13/2018 and probabl y new from 05/16/2017. There is some residual subpleural thickening peripheral left base measuring 1.5 cm which seems to hav e been present on 05/16/2017. 7 mm subpleural nodularity peripheral left lower lobe axial image 36 was present previously but shows minimal increased bulk. This is nonspecific. However, there is a 4 mm pulmonary nodule in the left midlung adjacent to the major fissure which j carlos ears new and could represent a satellite nodule. Diffuse reticulations and moderate centrilobular emphysema is redemonstrated with subpleural microcys tic change in the lower lobes and associated bibasilar bronchiectasis. Visualized upper abdomen shows no gross abnormality. Some spinal fusion hardware in the lumbar spine is only partially visualized. Bones: No sagittal reconstruction on HRCT images. Advanced degenerative disc disease lower thoracic s pine. IMPRESSION: NOTE THAT THE EXAM WAS PERFORMED PER HRCT PROTOCOL FOR ASSESSMENT OF INTERSTITIAL LUNG DISEASE. NODUL E FOLLOW-UP MAY BE MORE IDEAL WITH A CONVENTIONAL CT CHEST. 1. ENLARGING POSTERIOR LEFT LOWER LOBE MASS NOW MEASURING 4.2 CM VERSUS 2.3 CM ON 08/13/2018 HIGHLY S UGGESTIVE OF LUNG CANCER. APPROPRIATE MANAGEMENT RECOMMENDED. 2. POSSIBLE 4 MM LEFT LOWER LOBE SATELLITE NODULE LEFT MIDLUNG. 3. 2 ADDITIONAL AREAS ARE EQUIVOCAL, 1.5 CM SUBPLEURAL THICKENING PERIPHERAL LEFT BASE AND 7 MM SUBPL EURAL NODULARITY JUST ADJACENT. THESE AREAS SEEM TO HAVE BEEN PRESENT TO SOME EXTENT BACK TO 7 BUT SHOW MINIMAL INCREASED BULK. POSSIBLE SCARRING. 4. REDEMONSTRATED CHANGES OF COPD WITH MODERATE EMPHYSEMA AND SUSPECTED SUPERIMPOSED INTERSTITIAL FIB ROSIS, POSSIBLE FIBROTIC NSIP WITH BIBASILAR BRONCHIECTASIS. CLINICALLY CORRELATE. 5. PULMONARY ARTERIAL HYPERTENSION AND CAD.
== END | disposition home or self-care (01) ==
LOC: RADCTMAIN 14:25
PROVIDERS: ATTEND Family Medicine
DX: J43.9 Emphysema, unspecified (principal); I25.10 Atherosclerotic heart disease of native coronary artery without angina pectoris; R91.8 Other nonspecific abnormal finding of lung field; I27.21 Secondary pulmonary arterial hypertension
CPT/HCPCS: 71250

== ENCOUNTER → 2019-01-17 | Day surgery (SDC) | payer MEDICARE ==
[2019-01-17 09:53] LABS: Mean Platelet Volume 8.1; Platelet Count 328 k/uL (150-450)
[2019-01-17 09:58] LABS: Prothrombin Time 10.6 sec (9.0-12.0)
[2019-01-17 10:28] VITALS: TEMP 98.1
--- NOTE | 2019-01-17 10:57 | XR ---
EXAMINATION TYPE: XR chest 1V portable DATE OF EXAM: 01/17/2019 COMPARISON: 08/09/2018 HISTORY: Post lung biopsy TECHNIQUE: Single frontal view of the chest is obtained. FINDINGS: Large left lung mass noted. Postsurgical change lumbar spine. Coarsened interstitium sugge sts chronic interstitial lung disease such as pulmonary fibrosis. Diffuse osteopenia and biapical ple ural thickening. Atherosclerotic change aorta. No pneumothorax. IMPRESSION: No pneumothorax post lung biopsy.
--- NOTE | 2019-01-17 11:22 | CT ---
EXAMINATION TYPE: CT biopsy lung LT DATE OF EXAM: 01/17/2019 COMPARISON: 12/27/2018 HISTORY: Left chest mass CT DLP: 147 mGycm The procedure is discussed with the patient, the risks, complications, benefits and alternatives, wer e discussed and any questions were answered. Informed consent was obtained. The patient is placed p mike on the CT table, prepped and draped in the usual sterile fashion. Utilizing a 18-gauge core biopsy needle access into the left lung mass was achieved with a single pas s performed. Pathology pending. All elements of maximal barrier and sterile technique were utilized . The patient remained stable throughout the procedure with no immediate postprocedural complication . IMPRESSION: 1. Successful CT guided core biopsy left lung mass
[2019-01-17 11:34] VITALS: RESP 16
[2019-01-17 13:45] VITALS: BP 129/57; PULSE 81
--- NOTE | 2019-01-17 13:50 | XR ---
EXAMINATION TYPE: XR chest 1V portable DATE OF EXAM: 01/17/2019 HISTORY: Status post lung biopsy. COMPARISON: 01/17/2019 TECHNIQUE: Single view of the chest is submitted. FINDINGS: There is no evidence for pneumothorax. Left infrahilar mass redemonstrated. Demonstrated are scattered senescent parenchymal change. There is no evidence for focal infiltrate. The heart is stable. Hilar and mediastinal structures are within normal limits. Degenerative changes are seen of the dorsal spine. IMPRESSION: 1. No evidence for pneumothorax. Left infrahilar mass noted.
== END | disposition home or self-care (01) ==
LOC: RADPROMAIN 08:54
PROVIDERS: ATTEND Internal Medicine
DX: C34.92 Malignant neoplasm of unspecified part of left bronchus or lung (principal); J44.9 Chronic obstructive pulmonary disease, unspecified; I25.10 Atherosclerotic heart disease of native coronary artery without angina pectoris; M19.90 Unspecified osteoarthritis, unspecified site; K21.9 Gastro-esophageal reflux disease without esophagitis; G89.4 Chronic pain syndrome; M35.00 Sjogren syndrome, unspecified; K44.9 Diaphragmatic hernia without obstruction or gangrene; Z88.1 Allergy status to other antibiotic agents; Z88.5 Allergy status to narcotic agent; Z88.0 Allergy status to penicillin; Z88.2 Allergy status to sulfonamides; Z88.8 Allergy status to other drugs, medicaments and biological substances; Z79.01 Long term (current) use of anticoagulants; Z79.899 Other long term (current) drug therapy; Z79.891 Long term (current) use of opiate analgesic
CPT/HCPCS: 36415; 71045; 77012; 85049; 85610; 88305; 88341; 88342

== ENCOUNTER → 2019-02-16 | Outpatient (CLI) | payer MEDICARE ==
--- NOTE | 2019-02-17 13:18 | PE ---
Nuclear medicine PET/CT HISTORY: Lung cancer, initial Patient received 10.8 mCi F-18 FDG intravenously in delayed scanning was performed from the skull bas e to the mid thighs. Localization and attenuation correction CT scan was performed. Correlation to chest CT 12/27/2018 Neck and chest: Uptake along the rectus capitis is asymmetric left greater than right which is likely physiologic. The soft tissue mass in the left lower lobe measures approximately 5.1 cm in transverse dimension and extends to the pleural surface posteriorly, SUV is 27. Subcentimeter subpleural nodule seen on prior CT and the left lower lobe does not show associated hypermetabolic uptake. Interstitia l changes are again noted within the lungs. There is no mediastinal, axillary, or hilar adenopathy. C oronary artery calcifications are extensive. No pleural or pericardial effusion. Abdomen pelvis: Patient is post cholecystectomy. There is dilation of the central biliary ducts likel y due to postcholecystectomy change. No evident liver mass. Some uptake at the edge of the liver ante rolaterally is thought related to colonic interposition, physiologic activity within the colon. No re troperitoneal adenopathy or suspicious hypermetabolic uptake within the abdomen. Adrenal glands are w ithin normal limits. Osseous structures show postop change in the lumbar spine, cervical spine. No suspicious hypermetabol ic uptake. IMPRESSION: Findings compatible with bronchogenic carcinoma.
== END | disposition home or self-care (01) ==
LOC: RADPETMAIN 10:37
PROVIDERS: ATTEND Internal Medicine Hematology & Oncology
DX: C34.32 Malignant neoplasm of lower lobe, left bronchus or lung (principal)
CPT/HCPCS: 78815; A9552

== ENCOUNTER → 2019-03-25 | Outpatient (CLI) | payer MEDICARE ==
--- NOTE | 2019-03-25 13:03 | CT ---
EXAMINATION TYPE: CT chest wo con DATE OF EXAM: 03/25/2019 COMPARISON: PET/CT scan 02/16/2019 HISTORY: Lung CA CT DLP: 287 mGycm. Automated Exposure Control for Dose Reduction was Utilized. TECHNIQUE: CT scan of the thorax is performed without IV contrast. FINDINGS: LUNGS: There is a 5.1 x 4.0 x 5.1 cm mass left lower lobe which also previously measured 5.1 cm. Pleu ral thickening and changes of COPD with chronic interstitial lung disease again noted. Vague density seen within both lungs are most likely related atelectasis. 2 mm subpleural nodule in the right upper lobe likely is inflammatory. No pneumothorax. 4 mm left midlung nodule stable. MEDIASTINUM: Lack of IV contrast is noted to limit evaluation for mediastinal and especially hilar ad enopathy. There are no definitive greater than 1 cm hilar or mediastinal lymph nodes. Heart is enlarg ed and there is dense calcified coronary artery disease. Atherosclerotic change aorta. Lung the anter olateral border of the left ventricle there is a protuberance which could represent a ventricular ane urysm. Stable dating back to the CT of the abdomen dated 02/10/2014. OTHER: Postsurgical change involving the vertebral column. Chronic appearing endplate deformities not ed. Severe vacuum disc degenerative disc disease at multiple levels. Calcified granuloma in the splee n. Surgical clips involving the gallbladder fossa. Subcentimeter left thyroid nodule noted. IMPRESSION: 1. Large left lower lobe mass measuring 5.1 x 4.0 x 5.1 cm is stable from the prior PET CT scan of but increased in size from the CT scan of the chest dated 12/27/2018 where it measured 4.2 cm. 2. Cardiomegaly with dense coronary artery calcification. Note is made there is a lobulated contour t o the left ventricle anterior laterally. This could be associated with a left ventricular aneurysm is retrospectively stable dating back to a CT scan of the abdomen dated 02/10/2014.
== END | disposition home or self-care (01) ==
LOC: RADCTMAIN 12:20
PROVIDERS: ATTEND Internal Medicine
DX: R91.8 Other nonspecific abnormal finding of lung field (principal); I25.10 Atherosclerotic heart disease of native coronary artery without angina pectoris; I51.7 Cardiomegaly
CPT/HCPCS: 71250

== ENCOUNTER → 2019-05-22 | Outpatient (CLI) | payer MEDICARE ==
--- NOTE | 2019-05-22 16:47 | CT ---
EXAMINATION TYPE: CT chest wo con DATE OF EXAM: 05/22/2019 COMPARISON: 03/25/2019 and PET/CT 02/16/2019 HISTORY: 83 year-old female follow-up lung ca TECHNIQUE: Contiguous axial scanning of the chest without IV contrast. Coronal and sagittal reconstru ctions performed. CT DLP: 136.9 mGycm Automated exposure control for dose reduction was used. FINDINGS: Heart limits of normal in size without pericardial effusion. There is bulbous protrusion at the cardiac apex that could represent apical aneurysm such as in the s etting of a prior apical infarct. No pericardial effusion. Extensive coronary vessel calcifications are present. Ectatic ascending aorta 3.6 cm. Moderate atherosclerotic arch calcifications with conventional arch v essel branching anatomy. Large caliber to the main right and left pulmonary arteries and 2.0 and 3.1 cm, respectively, suggest ing underlying pulmonary artery hypertension. No thoracic lymphadenopathy by noncontrast technique. Underlying emphysematous change with scattered subpleural interstitial scarring and bibasilar bronchi ectasis scattered patchy mild groundglass densities. Redemonstrated patient's posterior left basilar neoplasm currently measuring 6.2 cm versus 5.4 cm on 03/25/2019 and 5.0 cm on 02/16/2019. Adjacent 7 mm subpleural pulmonary nodule laterally in the left lower lobe remains unchanged. No new consolidation or pleural effusion. Small hiatal hernia. Visualized upper abdomen shows moderate atherosclerotic calcifications within the abdominal aorta and cholecystectomy clips. Moderate to large stool burden. Bones: Degenerative changes mid to lower thoracic spine. Lumbar fusion hardware is present. IMPRESSION: 1. COPD, SCATTERED INTERSTITIAL FIBROSIS, AND BIBASILAR BRONCHIECTASIS. 2. PULMONARY ARTERIAL HYPERTENSION AND CAD. 3. 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 IN RETROSPECT, THIS WAS PRESENT MN EVIOUSLY. 4. KNOWN BASILAR LEFT LOWER LOBE NEOPLASM. CURRENTLY MEASURING 6.2 CM VERSUS 5.4 CM ON 03/25/2019 AND 5 .0 CM ON 02/16/2019. 5. AN ADJACENT 7 MM SUBPLEURAL PULMONARY NODULE IN THE LEFT LOWER LOBE REMAINS UNCHANGED.
== END | disposition home or self-care (01) ==
LOC: RADCTMAIN 15:32
PROVIDERS: ATTEND Family Medicine
DX: C34.32 Malignant neoplasm of lower lobe, left bronchus or lung (principal); J44.9 Chronic obstructive pulmonary disease, unspecified; I27.20 Pulmonary hypertension, unspecified; I25.10 Atherosclerotic heart disease of native coronary artery without angina pectoris; I25.3 Aneurysm of heart
CPT/HCPCS: 71250